=== PATIENT | male | born 1965 | race Caucasian/White ===

== ENCOUNTER 2024-04-23 21:28 | Emergency (ER) | payer OTHER, SELFPAY ==
[2024-04-23 22:07] VITALS: BP 147/87; PULSE 77; RESP 18; TEMP 36.3; O2SAT 100; BMI 27.4
--- NOTE | 2024-04-23 22:23 | ED.GENADULT ---
HPI - General Adult General Chief complaint: Animal Bite Stated complaint: tick bite Time Seen by Provider: 04/23/24 22:16 Source: patient Mode of arrival: ambulatory Limitations: no limitations History of Present Illness ED Provider: Augustine Mckeon PA-C HPI narrative: [age] year male with past medical history of high cholesterol presents to ED for possible left flank tick bite. Patient states he felt something crawling on his hold up his shirt he had a tick attached to his left flank with surrounding redness. Patient does not know how long it has been present was recently help his daughter move and [facility] where there are known for tics. Patient states no fever or rash. removed tick Related Data Previous Rx's ?Medication ?Instructions ?Recorded doxycycline hyclate 100 mg capsule 100 mg PO BID 10 days #20 caps 04/23/24 Allergies Allergy/AdvReac Type Severity Reaction Status Date / Time No Known Allergies Allergy Verified 04/23/24 22:08 Review of Systems Review of Systems: tick bite Yes all other systems are reviewed and are negative [facility] Social History Social History Advance Directives: No Advance Directives Information Provided: No Physical Exam ED Vital Signs: Vital Signs - 24 hr 04/23/24 22:07 Temperature 97.3 F Pulse Rate 77 Respiratory Rate 18 Blood Pressure 147/87 H Pulse Oximetry 100 Oxygen Delivery Method Room Air BMI result Body Mass Index 27.4 Const General: cooperative, healthy appearing, comfortable, no acute distress, well developed, alert, awake and Physically active Orientation/consciousness: oriented to person, oriented to place, oriented to time and patient oriented x3 HENMT Head: Yes normal to inspection, Yes No palpable skull fracture present, Yes normocephalic and Yes atraumatic Eyes General: appearance normal, both eyes and all related structures Neck Neck: Yes normal visual inspection, Yes full ROM, Yes no lymphadenopathy, Yes no meningeal signs, Yes trachea midline, Yes supple, No anterior neck swelling and No tender Chest Chest palpation & inspection: normal inspection of the chest and normal palpation of entire chest wall Resp Effort & Inspection: normal respiratory effort and able to speak in complete sentences Auscultation: clear to auscultation bilaterally Cardio Jugular venous distension: no JVD Heart sounds: S1 normal heart sound present and S2 normal heart sound present GI Inspection: Yes normal to inspection Palpation (GI): Soft to palpation, not firm, nontender, no guarding and not rigid General: No CVA tenderness and Yes no CVA tenderness Back/Spine/Pelvis Back: no CVA tenderness, No CVA tenderness and No back tenderness Skin General skin exam: no rashes or lesions noted, elasticity normal and turgor normal Full body images: 1. Circular area redness with bite chyna opening. Looks like tick bite Neuro General: oriented to person, oriented to place, oriented to time, patient oriented x3, gait normal, tone normal, moves all extremities, Normal light touch and pain sensation, no meningeal signs, no focal motor deficits, CN's II-XI intact bilaterally and normal sensation to monofilament Extrem General: Yes normal to inspection, Yes full ROM and Yes capillary refill normal Psych Appearance: grossly normal, well kempt and not disheveled Medical Decision Making Medical Decision Making MDM Narrative: 58-year-old male presents to ED for left leg redness due to tick bite. pulled a tick out of his flank. Patient denies any fever or chills. Patient states no body aches or chills. Patient denies any joint pain. Patient will be discharged with doxycycline Differential Diagnosis Differential Diagnoses: The differential diagnosis associated with the presentation includes (Tick bite) Admission/Observation Consideration of admission/observation: Escalation of care including admission/observation considered Independent Historian Clinical information obtained from an independent historian. History obtained from or confirmed by: Other (Patient) External Record Review External record reviewed: Other (Prior visits) Prescription Management I considered prescription management with: Antibiotic Discharge Plan Discharge Clinical Impression: Tick bite Patient Disposition: Home, Self-Care Instructions: Tick Bite (ED) Additional Instructions: You will be discharged with doxycycline. Recommend follow-up with primary care provider. Return to the ED for worsening redness, rash, fever, chills, headache, dizziness, or any other concerning symptoms. Prescriptions: New doxycycline hyclate 100 mg capsule 100 mg PO BID 10 Days Qty: 20 0RF Stand Alone Forms: Work/School Release Interventions: ED Discharge Assessment Last Done: 04/23/24 22:54 Discharge Date/Time: 04/23/24 22:54 Print Language: Turkmen
[2024-04-23 22:54] VITALS: BP 147/87; PULSE 77; RESP 18; TEMP 36.3; O2SAT 100
== END 2024-04-23 22:54 | disposition home or self-care (01) ==
PROVIDERS: Emergency Provider Internal Medicine; PCP Internal Medicine
DX: S30.861A Insect bite (nonvenomous) of abdominal wall, initial encounter (principal); W57.XXXA Bitten or stung by nonvenomous insect and other nonvenomous arthropods, initial encounter; Y93.9 Activity, unspecified; Y92.9 Unspecified place or not applicable; Y99.9 Unspecified external cause status
CPT/HCPCS: 99282; 99283

== ENCOUNTER 2025-01-07 01:24 | Emergency (ER) | payer BC, SELFPAY ==
--- NOTE | ~2025-01-07 | XR_ITS ---
CLINICAL HISTORY: R. neck shoulder pain. 5 views cervical spine Comparison: None Findings: Normal alignment. No acute fractures or dislocation. Multilevel spondylosis with osteophytosis, uncovertebral hypertrophy, facet arthropathy and degenerative disc disease. No prevertebral soft tissue swelling. IMPRESSION: Chronic changes without acute findings. This document has been electronically signed by: Rory Saha MD on 01/07/2025 02:48:55
--- NOTE | ~2025-01-07 | XR_ITS ---
CLINICAL HISTORY: R. neck shoulder pain. 3 view right shoulder Comparison: None Findings: Bones intact. No dislocations. Mild degenerative changes of the AC joint. No erosions. No radiopaque foreign body. IMPRESSION: 1. No acute findings This document has been electronically signed by: Rory Saha MD on 01/07/2025 02:47:34
[2025-01-07 01:28] VITALS: BP 146/80; PULSE 82; RESP 16; TEMP 36.3; O2SAT 99; BMI 27.2
[2025-01-07 06:01] VITALS: BP 116/55; PULSE 82; RESP 16; TEMP 36.4; O2SAT 98
[2025-01-07] MEDS: Acetaminophen 325 MG TABLET 975 MG PO (06:04)
--- OUTSIDE RECORDS SUMMARY | 2025-01-07 06:20 | XMS_ITS | Continuity of Care Document ---
Author Name [facility] Organization [facility] Care Team Providers Care Assistant Professor Of Psychology Name Role Phone [facility] Unavailable Unavailable Problems Combined list of problems from Department of Defense and Veterans Affairs facilities. It does not include entries that were removed or entered in error. Problem Status Onset Date Problem Type Date of Resolution Comments Source Hypercholesterolemia Active 11/12/19 23 Condition [facility] Alcohol dependence Active Condition A 2022 Entered By: TAYLER ESTEVEZ Comment: Alcohol Use Disorder, Severe [facility] [place] [facility] Anxiety disorder Active Condition Mar 06, 2022 Entered By: MELANIE BANKS Comment: updated. [facility] Moderate alcohol dependence Active Condition Jan 19, 2023 Entered By: MELANIE BANKS Comment: updated. [facility] Diagnosis: ICD-10-CM F41.9 Anxiety disorder, unspecified Active Diagnosis [place] Diagnosis: ICD-10-CM F10.20 Alcohol dependence, uncomplicated Active Diagnosis [facility] Diagnosis: ICD-10-CM F10.29 Alcohol dependence with unspecified alcohol-induced disorder Active Diagnosis [facility] Medications Combined list of outpatient medications from Department of Defense and Veterans Affairs facilities.Medications provided include 1) outpatient medications from the last 15 months, and 2) patient-reported medications. Medication Details Route Status Patient Instructions Prescription Expires Prescription Number Last Dispense Date Ordering Provider Order Date Order Qty Source GABAPENTIN 300MG CAP TAKE ONE CAPSULE BY MOUTH THREE TIMES DAILY NEEDED ORAL 01/20/2024 [id number] XIOMARA BANKS 2022 90 FARAZ IEEVENS LORAZEPAM 0.5MG TAB TAKE ONE TABLET BY MOUTH TWICE DAILY NEEDED FOR ANXIETY ORAL 12/28/2024 [id number] 5 Lyndon KO 2024 6 IELD LORAZEPAM 0.5MG TAB TAKE ONE TABLET BY MOUTH ONCE DAILY FOR ANXIETY ORAL 02/19/2024 [id number] 4 XIOMARA BANKS 2023 7 IELD SERTRALINE HCL 100MG TAB TAKE ONE-HALF TABLET BY MOUTH ONCE DAILY ANXIETY ORAL 05/28/2024 [id number] 4 XIOMARA BANKS A 2022 30 IELD Immunizations Combined list of available immunizations from the Department of Defense and Veterans Affairs facilities. 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 Administe red by: TOM MENDOZA (VHF=[phone]). Partner 1 [facility] [place] [facility] [facility] Encounters Combined list of: 1) Encounters from Department of Veterans Affairs facilities going backup to the last 18 months, not all [place] inpatient encounters are included; 2) Encounters from the Department of Defense facilities going backup to 280 months. Location Location Details Encounter Type Encounter Number Reason For Visit Attending Provider ADM Date DC Date Status Disposition Source [place] [facility] [place] [facility] [employer] [place] [id number] Diagnos is: ICD-10- CM F41.9 Anxiety disorde r, unspeci fied MELANIE BANKS 07/10 [place] [facility] [place] [facility] [place] [facility] HC PRO PHONE CALL 11-20 MIN [id number] Diagnos is: ICD-10- CM F10.29 Alcohol depende nce with unspeci fied alcohol -induce d disorde r DEBORAH,BENJA IG 08[facility]28 [facility] En[facility] [id number] 09/03 [facility] PSYTX W PT 30 MINUTES [id number] Diagnos is: ICD-10- CM F10.20 Alcohol depende nce, uncompl icated DEBORAH,TREE KILLER IG 09/10 [facility] [place] [place] [facility] Outpatient Encounter [id number] 09/18 [place] [facility] En[facility] [id number] 09/26 [facility] En[facility] [id number] 10/16 [facility] [place] OFFICE O/P EST MOD 30-39 MIN [id number] Diagnos is: ICD-10- CM F41.9 Anxiety disorde r, unspeci fied ROOT,MELANIE A 10/29 [place] [facility] En[facility] [id number] 01/07 [facility] En[facility] [id number] 01/19 [facility] En[facility] [id number] 01/28 [facility] Encounter [id number] 01/30 [facility] [place] [place] [facility] [place] Outpatient Encounter [id number] 03/11 [place] [facility] En[facility] [id number] 05/28 [facility] En[facility] [id number] 05/28 [facility] En[facility] [id number] 05/30 [facility] En[facility] [id number] 10/14 [facility] En[facility] [id number] 11/17 [facility] En[facility] [id number] 11/28 [facility] [place] [facility] Social History Combined list of available smoking, tobacco, and other social history from Department of Defense and Veterans Affairs facilities. Social History Type Response Date Comment Sourc e Tobacco [facility]2023 [facility] History of tobacco use VA-TOBACCO NEVER USED 03/06/2022 [facility] D History of tobacco use VA-TOBACCO NEVER USED 01/20/2021 [facility] [place] History of tobacco use VA-TOBACCO NEVER USED 09/18/2018 [facility] D History of tobacco use LIFETIME NON-TOBACCO USER 10/11/2017 [place] History of tobacco use LIFETIME NON-TOBACCO USER 10/19/2016 [place] History of tobacco use LIFETIME NON-TOBACCO USER 03/03/2015 [facility] [place] [facility] This section is an empty social history section. [facility] Plan of Care List of future care activities from Department of Veterans Affairs facilities. Additional future care activities may be listed in the Assessment and Plan section. Date/Time Care Activity Care Activity Detail Facili ty 02/23/2025 AMBULATORY - MEDICINE AMBULATORY - MEDICI [facility]
--- OUTSIDE RECORDS SUMMARY | 2025-01-07 06:20 | XMS_ITS | Encounter Summary ---
Author Name [facility] Address [address] [place] [address] Support Name Relationship Address Phone ESTRELLITA NGUYEN Next of Kin [address] [facility] [place] [phone] ESTRELLITA NGUYEN Emergency Contact [address] [place] [address] Insurance Providers: All historical and current Section Date Range: From patient's date of to the date document was created. This section includes the names of all active insurance providers for the patient. Insurance Provider Type of Coverage Plan Name Start of Policy Coverage End of Policy Coverage Group Number Member ID Insurance Provider's Telephone Number Policy Beavers's Name Patient's Relationship to Policy Beavers [place] PREFERRED PROVIDER ORGANIZAT ION (PPO) BASIC FAMIL Y Nov 14, 2009 [id number] [phone] Lyndon NGUYEN AVID PATIENT [place] PREFERRED PROVIDER ORGANIZAT ION (PPO) BASIC SELF & FAMIL Y Nov 14, 2009 [id number] [phone] Lyndon NGUYEN AVID PATIENT [place] FEP PRESCRIPT ION Nov 12, 2010 [id number] [phone] Lyndon NGUYEN AVID PATIENT [place]-F EP BCBS PRESCRIPT ION FEP [place] Nov 12, 2010 [id number] Lyndon NGUYEN PATIENT Selected Encounter This section includes the information on record at [place] for the Encounter. Date/Time Encounter Type Encounter Description Reason Pro vider Source Mar 11, 2024 11:30 AM Outpatient Encounter [facility] Encounter Template Text not used by [place] Social History: Smoking Status (Most current) and Tobacco Use (All prior to encounter date) This section includes the most current, and the historical, smoking and tobacco- related health factors from the [place] facility where the Encounter took place. Current Smoking Status This section includes the most current smoking, or tobacco-related health factor, from the [place] facility where the Encounter took place. Date/Time Current Smoking Status Comment Lan noey May 28, 2023 01:00 PM VA-TOBACCO NEVER USED [place] Tobacco Use History This section includes a history of the smoking, or tobacco-related health factors, that were collected on or before the date of the Encounter. The data comes from the [place] facility where the Encounter took place. Date/Time Smoking Status/Tobacco Use Comment F acility Mar 06, 2022 02:30 PM VA-TOBACCO NEVER USED [place] Jan 20, 2021 11:30 AM VA-TOBACCO NEVER USED [place] Sep 18, 2018 09:12 AM VA-TOBACCO NEVER USED [place] Oct 11, 2017 11:32 AM LIFETIME NON-TOBACCO USER [place] Oct 19, 2016 02:43 PM LIFETIME NON-TOBACCO USER [place] Encounter Notes: All associated encounter notes This section contains the clinical notes associated to the Encounter. Date/Time Encounter Note(s) Provider Source Mar 11, 2024 11:45 AM CLERICAL NOTE: LOCAL TITLE: APPOINTMENT NO SHOW STANDARD TITLE: CLERICAL NOTE DATE OF NOTE: MAR 11, 2024@11:45 ENTRY DATE: MAR 11, 2024@11:45:30 AUTHOR: MELANIE BANKS COSIGNER: URGENCY: STATUS: COMPLETED Patient Name: GREGORIO NGUYEN Patient SSN: [id number] Date and time of Appointment No show : 03/11/24 11:30 PATIENT PHONE - PHONE NUMBER [CELLULAR] - Patient's medical record was reviewed. Follow-up actions were determined and initiated: Please check/complete as applies: [X]Telephoned Directly [X]Re-scheduled for next available appt [X]Sent a N0-show letter ( must call for appointment) [ ]Other (Emergent/Overbook, etc.): Additional Comments: rtc 5 months Future Clinic Visits No data available /kasey/ Melanie Banks REAL ESTATE DEVELOPMENT MANAGER, STAFF CLINICAL NURSE SPECIALIST Signed: 03/11/2024 11:49 Receipt Acknowledged By: 03/11/2024 13:16 /kasey/ Hayley Bryce ADVANCED FLOORLEADER MLEANIE BANKS
--- OUTSIDE RECORDS SUMMARY | 2025-01-07 06:21 | XMS_ITS | Encounter Summary ---
Author Organization [facility] Address [address] [place] [address] Care Team Providers Care Slot Floor Attendant Name Role Phone Tyrell Amezquita Primary Care Provider [phone] Reason for Referral * Imaging (Routine) - Pending Review Specialty Diagnoses / Procedures Referred By Frank t Referred To Contact Radiology Diagnoses Dysuria Left testicular pain Prostatitis, unspecified prostatitis type Procedures US Retroperitoneal Complete Tyrell Amezquita PA [address] [place] [address] Phone: tel: fax: [address] Phone: tel: Referral ID Status Reason Start Date Expiration Date V isits Requested Visits Authorized [id number] Pending Review 12/08/2024 12/08/2025 1 1 Reason for Visit * Imaging (Routine) - Pending Review Specialty Diagnoses / Procedures Referred By Contac t Referred To Contact Radiology Diagnoses Dysuria Left testicular pain Prostatitis, unspecified prostatitis type Procedures US Retroperitoneal Complete Tyrell Amezquita PA [address] [place] [address] Phone: tel: fax: [address] Phone: tel: Referral ID Status Reason Start Date Expiration Date V isits Requested Visits Authorized [id number] Pending Review 12/08/2024 12/08/2025 1 1 Encounter Details Date Type Department Care Team (Latest Contact Info) Description 12/22/2024 9:57 AM EST - 12/22/2024 11:59 PM EST Hospital Encounter Radiology Department - [address] [phone] Dysuria; Left testicular pain; Prostatitis, unspecified prostatitis type Discharge Disposition: Home or Self Care Social History Tobacco Use Types Packs/Day Years Used Date Smoking Tobacco: Never Smokeless Tobacco: Never Alcohol Use Standard Drinks/Week Comments Yes 0 (1 standard drink = 0.6 oz pur e alcohol) Sex and Gender Information Value Date Recorded Sex Assigned at Not on file Legal Sex Male 8:13 PM EST Gender Identity Not on file Sexual Orientation Not on file documented as of this encounter Medications at Time of Discharge cyclobenzaprine (FLEXERIL) 5 mg tablet Take 1 tablet (5 mg total) by mouth at bedtime. 12/07/2024 doxycycline (VIBRAMYCIN) 100 mg capsule 04/23/2024 famotidine (PEPCID) 40 mg tablet Take 0.5 tablets (20 mg total) by mouth 1 (one) time each day. guaiFENesin (ROBITUSSIN) 100 mg/5 mL liquid Take 10 mL (200 mg total) by mouth 3 (three) times a day if needed for cough. 02/12/2024 ibuprofen (ADVIL,MOTRIN) 800 mg tablet Take 1 tablet (800 mg total) by mouth every 8 (eight) hours if needed for mild pain (for up to 30 days). 05/28/2024 LORazepam (ATIVAN) 0.5 mg tablet Take 1 tablet (0.5 mg total) by mouth every 8 (eight) hours if needed for anxiety (Take 1 tablet as needed for anxiety/panic symptoms). Max Daily Amount: 1.5 mg 30 tablet 12/08/2024 simvastatin (ZOCOR) 10 mg tablet Take 1 tablet (10 mg total) by mouth at bedtime. For 180 days 90 tablet 3 12/08/2024 documented as of this encounter Discharge Disposition Disposition Code Departure Means Destination Home or Self Care documented in this encounter Plan of Treatment Upcoming Encounters Date Type Department Care Team (Late st Contact Info) Description 03/09/2025 3:00 PM EDT Office Visit Adult Medicine [facility] [address] [place] [address] Tyrell Amezquita PA [address] [place] [address] documented as of this encounter Procedures Procedure Name Priority Date/Time Associated Diagnosis Comments US RETROPERITONEAL COMPLETE Routine 12/22/2024 10:43 AM EST Dysuria Left testicular pain Prostatitis, unspecified prostatitis type documented in this encounter Results * US Retroperitoneal Complete (12/22/2024 10:43 AM EST) Anatomical Region Laterality Modality Body Ultrasound 12/22/2024 10:5 2 AM EST Narrative 12/22/2024 10:54 AM EST Retroperitoneal ultrasound. History dysmenorrhea. Comparison with prior ultrasound, latest from 09/29/2023. Right kidney is normal in size and echogenicity measuring 11 cm in long axis. Left kidney measures 13 cm in long axis. There is a 0.5 x 0.7 x 0.8 cm cyst with calcifications in the upper pole as well as some clear cyst measuring 1 x 1 x 1 cm in the midpole. There is no evidence of visible solid masses. There is no hydronephrosis or perinephric fluid collections. Urinary bladder was visualized with prevoid volume of 195 cc. Postvoid volume is 29 cc. Bilateral ureteral jets were identified. Prostate volume is 18 cc. Incidental findings of cyst in the right lobe of the liver measuring 1.7 x 1.9 x 1.7 cm. CONCLUSIONS: Unremarkable appearance of the bladder. 2 cysts in the right kidney as detailed in the report. Incidental findings of small cyst in the right lobe of the liver. -------- FINAL REPORT -------- Dictated By: Shanita Diaz Dictated Date: 12/22/2024 10:52 ET Assigned Physician: Shanita Diaz Reviewed and Electronically Signed By: Shanita Diaz Signed Date: 12/22/2024 10:54 ET Workstation ID: [id number] Transcribed By: Self Edit Transcribed Date: 12/22/2024 10:52 ET Procedure Note Shanita Diaz MD - 12/22/2024 Retroperitoneal ultrasound. History dysmenorrhea. Comparison with prior ultrasound, latest from 09/29/2023. Right kidney is normal in size and echogenicity measuring 11 cm in longaxis. Left kidney measures 13 cm in long axis. There is a 0.5 x 0.7 x 0.8cm cyst with calcifications in the upper pole as well as some clear cystmeasuring 1 x 1 x 1 cm in the midpole. There is no evidence of visiblesolid masses. There is no hydronephrosis or perinephric fluidcollections. Urinary bladder was visualized with prevoid volume of 195 cc. Postvoidvolume is 29 cc. Bilateral ureteral jets were identified. Prostate volume is 18 cc. Incidental findings of cyst in the right lobe ofthe liver measuring 1.7 x 1.9 x 1.7 cm. CONCLUSIONS: Unremarkable appearance of the bladder. 2 cysts in the rightkidney as detailed in the report. Incidental findings of small cyst in theright lobe of the liver. -------- FINAL REPORT -------- Dictated By: Shanita Diaz Dictated Date: 12/22/2024 10:52 ET Assigned Physician: Shanita Diaz Reviewed and Electronically Signed By: Shanita Diaz Signed Date: 12/22/2024 10:54 ET Workstation ID: [id number] Transcribed By: Self Edit Transcribed Date: 12/22/2024 10:52 ET Tyrell WADDELL IM US PROCEDURES Final R esult documented in this encounter Visit Diagnoses Diagnosis Dysuria Left testicular pain Prostatitis, unspecified prostatitis type documented in this encounter Care Teams Slot Floor Attendant Relationship Specialty Start Date End Date Tyrell Amezquita PA [address] [place] [address] PCP - General Internal Medicine 04/27/21 documented as of this encounter
--- OUTSIDE RECORDS SUMMARY | 2025-01-07 06:21 | XMS_ITS | Encounter Summary ---
Author Organization [facility] Address [address] [place] [address] Care Team Providers Care Manager Inventory Control Name Role Phone Tyrell Amezquita Primary Care Provider [phone] Reason for Visit * Reason Onset Date Comments information for Tyrell Amezquita 12/08/2024 Encounter Details Date Type Department Care Team (Late st Contact Info) Description 12/08/2024 Telephone Adult Medicine [facility] [address] [place] [address] Tyrell Amezquita PA [address] [place] [address] information for Tyrell Amezquita Social History Tobacco Use Types Packs/Day Years [...] on file documented as of this encounter Progress Notes * NADIRA Lisa - 12/09/2024 11:57 AM EST Ok will keep an eye out * Katrina Robertson - 12/08/2024 10:45 AM EST Patient states he saw Nikko today and he would like him to know the following. States that he had seen [facility] Dr Tung [place]ins. States he spoke with that office and they are sending his office to notes to Nikko today. Patient would like Nikko to be on the look out. documented in this encounter Plan of Treatment Upcoming Encounters Date Type Department Care Team (Late st Contact Info) Description 03/09/2025 3:00 PM EDT Office Visit Adult Medicine [facility] [address] [place] [phone] Tyrell Amezquita PA [address] [place] [phone] documented as of this encounter Visit Diagnoses Not on filedocumented in this encounter Care Teams Manager Inventory Control Relationship Specialty Start Date End Date Tyrell Amezquita PA [address] [place] [phone] PCP - General Internal Medicine 04/27/21 documented as of this encounter
--- OUTSIDE RECORDS SUMMARY | 2025-01-07 06:21 | XMS_ITS | Clinical Summary ---
Author Organization [address] Address [address] [place] [phone] Phone Care Team Providers Care Podopediatrician Name Role Phone Tyrell Amezquita Primary Care Provider [phone] Allergies Active Allergy Reactions Criticality Noted Date Comments Rosuvastatin Pain High 09/24/2023 Other Reaction(s): ACHES Sulfamethoxazole-Trimethop rim Numbness,Rash High 07/16/2020 Medications ibuprofen (ADVIL,MOTRIN) 800 mg tablet Take 1 tablet (800 mg total) by mouth every 8 (eight) hours if needed for mild pain (for up to 30 days). 05/28/2024 Active doxycycline (VIBRAMYCIN) 100 mg capsule 04/23/2024 Acti ve guaiFENesin (ROBITUSSIN) 100 mg/5 mL liquid Take 10 mL (200 mg total) by mouth 3 (three) times a day if needed for cough. 02/12/2024 Active cyclobenzaprine (FLEXERIL) 5 mg tablet Take 1 tablet (5 mg total) by mouth at bedtime. 12/07/2024 Active famotidine (PEPCID) 40 mg tablet Take 0.5 tablets (20 mg total) by mouth 1 (one) time each day. Active simvastatin (ZOCOR) 10 mg tablet Take 1 tablet (10 mg total) by mouth at bedtime. For 180 days 90 tablet 3 12/08/2024 Active LORazepam (ATIVAN) 0.5 mg tablet Take 1 tablet (0.5 mg total) by mouth every 8 (eight) hours if needed for anxiety (Take 1 tablet as needed for anxiety/gadiel c symptoms). Max Daily Amount: 1.5 mg 30 tablet 12/08/2024 Active levoFLOXacin (LEVAQUIN) 750 mg tablet Take 1 tablet (750 mg total) by mouth 1 (one) time each day for 14 days. 14 tablet 12/08/2024 12/22/19 25 Active Problems Problem Noted Date Diagnosed Date Arrhythmia 04/20/2023 Tubular adenoma of colon 12/11/2022 Other viral warts 12/11/2022 Mixed hyperlipidemia 04/18/2019 Atrial fibrillation 06/14/2016 Kidney cysts 11/28/2011 Overview (11/03/2024): Saw Dr Gonsalves 01/18, f/u CT 03/20 also showed cysts; repeat done 12/24 and was stable Neoplasm of uncertain behavior of skin 8 Overview (11/03/2024): Dysplastic nevus 10/19 back (mild atypia) Claustrophobia 10/26/2008 Overview (11/03/2024): Please schedule any MRI at [facility]. Pure hypercholesterolemia 07/04/2006 Infectious mononucleosis 07/04/2006 Encounters Date Type Department Care Team Description 12/22/2024 9:57 AM EST - 12/22/2024 11:59 PM EST Hospital Encounter Radiology Department - [address] [phone] Dysuria; Left testicular pain; Prostatitis, unspecified prostatitis type Discharge Disposition: Home or Self Care 12/22/2024 9:57 AM EST - 12/22/2024 11:59 PM EST Hospital Encounter Radiology [facility] - [address] [phone] Dysuria; Left testicular pain; Prostatitis, unspecified prostatitis type Discharge Disposition: Home or Self Care 12/08/2024 9:30 AM EST Office Visit Adult Medicine [address] [phone] Tyrell Amezquita PA Prostatitis, unspecified prostatitis type (Primary Dx); Dysuria; Left testicular pain 12/08/2024 Telephone Adult Medicine [address] [phone] Tyrell Amezquita PA information for Tyrell Amezquita 12/04/2024 Telephone Adult Medicine [address] [phone] Tyrell Amezquita PA UTI SYSTEMS 11/18/2024 Nurse Triage Adult [address] [phone] Tyrell Amezquita PA UTI (For the past 2 weeks) from Last 3 Months Immunizations Name Administration Dates Next Due Influenza Quadravalent, MDCK , 0.5ml, preservative free (Flucelvax) 6mo and older 09/05/2023,12/11/2022 Influenza trivalent, 0.5mL, preservative free (Fluarix; FluLaval; Fluzone) ages 6mo and older (Afluria) 3 years and older 11/17/2024,08/26/2014,09/24/2012,2010 Disrupt CK SARS-CoV-2 COVID-19, mRNA, LNP-S, preservative free 01/28/2021,01/07/2021 Td Tetanus diptheria (Tdvax) 7yo and older 10/12/2004 Tdap Tetanus diptheria acell ular pertussis (Boostrix; Adacel) 7yo and older 12/11/2014 Surgical History Surgery Date Site/Laterality Comments HERNIA REPAIR 11/12/1985 Right PROCEDURE: HISTORICAL HERNIA REPAIR/ING COLONOSCOPY 08/25/2016 PROCEDURE: HISTORICAL COLONOSCOPY; COMMENT: 2 polyps, tics, hemorrhoids. OTHER SURGICAL HISTORY 06/30/2020 PROCEDURE: UPPER GI ENDOSCOPY, REMOVE LESION; COMMENT: muslu -normal. COLONOSCOPY 02/01/2024 PROCEDURE: HISTORICAL COLONOSCOPY; COMMENT: dr. elise -diverticulosis repeat 5 years Medical History Medical History Date Comments Pure hypercholesterolemia 07/04/2006 DX:Pur e hypercholesterolemia Infectious mononucleosis 07/04/2006 DX:Infe ctious mononucleosis Inguinal hernia without ment ion of obstruction or gangrene, unilateral or unspecified, (not specified as recurrent) 07/04/2006 DX:Inguinal hernia without m ention of obstruction or gangrene, unilateral or unspecified, (not specified as recurrent) Arrhythmia 04/20/2023 Family History Medical History Relation Name Comments Coronary artery disease Father sasha y 60's onset Diabetes Father Other cancer Other possible in gra ndmother, uncertain type Blindness Neg Hx Cataracts Neg Hx Glaucoma Neg Hx Hypertension Neg Hx Macular degeneration Neg Hx Strabismus Neg Hx Relation Name Status Comments Father (Age 71) AAA pvd ca bg at 62 dm Mother Other Sister Alive Social History Tobacco Use Types Packs/Day Years Used Date Smoking Tobacco: Never Smokeless Tobacco: Never Tobacco Cessation:Counseling Given: Not Answered Alcohol Use Standard Drinks/Week Comments Yes 0 (1 standard drink = 0.6 oz pur e alcohol) Sex and Gender Information Value Date Recorded Sex Assigned at Not on file Legal Sex Male 8:13 PM EST Gender Identity Not on file Sexual Orientation Not on file Obstetrics History Last Filed Vital Signs Vital Sign Reading Time Taken Comments Blood Pressure 122/67 12/08/2024 9:12 AM EST Pulse 93 12/08/2024 9:12 AM EST Temperature 36.5 ??C (97.7 ??F) 12/08/2024 9:12 AM ES T Respiratory Rate 12 12/08/2024 9:12 AM EST Oxygen Saturation - - Inhaled Oxygen Concentration - - Weight 82 kg (180 lb 12.8 oz) 12/08/2024 9:12 AM EST Height 172.7 cm (5' 8 ) 12/08/2024 9:12 AM EST Body Mass Index 27.49 12/08/2024 9:12 AM EST Plan of Treatment Upcoming Encounters Date Type Department Care Team (Late st Contact Info) Description 03/09/2025 3:00 PM EDT Office Visit Adult Medicine [facility] [address] [place], [place] [phone] Tyrell Amezquita PA [address] [place] [address] Health Maintenance Due Date Last Done Comments Hepatitis B Vaccines (1 of 3 - 19+ 3-dose series) 1985 Pneumococcal Vaccine: 50+ Years (1 of 2 - PCV) 1985 Pneumococcal Vaccine: Pediatrics (0 to 5 Years) and At-Risk Patients (6 to 64 Years) (1 of 2 - PCV) 1985 Zoster Vaccines (1 of 2) 1985 Depression Screening 10/21/2022 HIV Screening 10/21/2022 Social Influencers of Health Screening 10/21/2022 COVID-19 Vaccine ( season) 2024 10/02/2023, 11/08/2021, 01/28/2021, Additional history exists DTaP,Tdap,and Td Vaccines (3 - Td or Tdap) 12/11/2024 12/11/2014, 10/12/2004 Cholesterol Screening (Lipid Panel) 09/26/2028 09/26/2023 Colorectal Cancer Screening: Colonoscopy 01/31/2029 02/01/2024 Hepatitis C Screening Completed 12/12/2022 Influenza Vaccine Completed 11/17/2024, , 12/11/2022, Additional history exists HIB Vaccines Aged Out No longer eligi ble based on patient's age to complete this topic HPV Vaccines Aged Out No longer eligi ble based on patient's age to complete this topic Hepatitis A Vaccines Aged Out No long er eligible based on patient's age to complete this topic IPV Vaccines Aged Out No longer eligi ble based on patient's age to complete this topic MMR Vaccines Aged Out No longer eligi ble based on patient's age to complete this topic Meningococcal ACWY Vaccine Aged Out N o longer eligible based on patient's age to complete this topic Meningococcal B Vacine Aged Out No lo nger eligible based on patient's age to complete this topic RSV Immunization Patients Under 20 months Aged Out No longer eligible based on patient's age to complete this topic Varicella Vaccines Aged Out No longer eligible based on patient's age to complete this topic Procedures Procedure Name Priority Date/Time Associated Diagnosis Comments US SCROTUM AND CONTENTS Routine 12/22/19 10:43 AM EST Dysuria Left testicular pain Prostatitis, unspecified prostatitis type US RETROPERITONEAL COMPLETE Routine 12/22/2024 10:43 AM EST Dysuria Left testicular pain Prostatitis, unspecified prostatitis type CBC WITH AUTO DIFFERENTIAL Routine 12/08/2024 4:22 PM EST Dysuria Left testicular pain Prostatitis, unspecified prostatitis type URINALYSIS WITH REFLEX MICROSCOPIC Routine 12/08/2024 4:22 PM EST Dysuria Left testicular pain Prostatitis, unspecified prostatitis type COMPREHENSIVE METABOLIC PANEL Routine 12/08/2024 4:22 PM EST Dysuria Left testicular pain Prostatitis, unspecified prostatitis type CBC AND DIFFERENTIAL Routine 12/08/2024 4:22 PM EST Dysuria Left testicular pain Prostatitis, unspecified prostatitis type PROSTATE SPECIFIC ANTIGEN SCREEN Routine 12/08/2024 4:22 PM EST Dysuria Left testicular pain Prostatitis, unspecified prostatitis type URINALYSIS WITH REFLEX MICROSCOPIC Routine 12/08/2024 4:22 PM EST Dysuria Left testicular pain Prostatitis, unspecified prostatitis type LIPID PANEL Routine 09/26/2023 HEPATITIS C SCREENING Routine 12/12/2022 from Last 3 Months or Most Recently Relevant to Health Maintenance Results * US Scrotum and Contents (12/22/2024 10:43 AM EST) Anatomical Region Laterality Modality Body Ultrasound 12/22/2024 10:4 9 AM EST Narrative 12/22/2024 10:51 AM EST Scrotal ultrasound. History left-sided pain. Both testicles were visualized without evidence of focal abnormalities and with normal flow on color Doppler examination. There is no significant hydrocele. Note was made of from multiple tiny cysts in the epididymal heads bilaterally, more numerous on the left. They measure up to 3 mm in diameter. CONCLUSIONS: No focal abnormalities in the testicles. Bilateral tiny epididymal head cysts. -------- FINAL REPORT -------- Dictated By: Shanita Diaz Dictated Date: 12/22/2024 10:49 ET Assigned Physician: Shanita Diaz Reviewed and Electronically Signed By: Shanita Diaz Signed Date: 12/22/2024 10:51 ET Workstation ID: [id number] Transcribed By: Self Edit Transcribed Date: 12/22/2024 10:49 ET Procedure Note Shanita Diaz MD - 12/22/2024 Scrotal ultrasound. History left-sided pain. Both testicles were visualized without evidence of focal abnormalities andwith normal flow on color Doppler examination. There is no significanthydrocele. Note was made of from multiple tiny cysts in the epididymalheads bilaterally, more numerous on the left. They measure up to 3 mm indiameter. CONCLUSIONS: No focal abnormalities in the testicles. Bilateral tinyepididymal head cysts. -------- FINAL REPORT -------- Dictated By: Shanita Diaz Dictated Date: 12/22/2024 10:49 ET Assigned Physician: Shanita Diaz Reviewed and Electronically Signed By: Shanita Diaz Signed Date: 12/22/2024 10:51 ET Workstation ID: [id number] Transcribed By: Self Edit Transcribed Date: 12/22/2024 10:49 ET us Tyrell WADDELL IMG US PROCEDURES Final R esult * US Retroperitoneal Complete (12/22/2024 10:43 AM [...] Signed Date: 12/22/2024 10:54 ET Workstation ID: [id number] Transcribed By: Self Edit Transcribed Date: 12/22/2024 [...] Signed Date: 12/22/2024 10:54 ET Workstation ID: [id number] Transcribed By: Self Edit Transcribed Date: 12/22/2024 10:52 ET Tyrell WADDELL IMG US PROCEDURES Final R esult * Prostate specific antigen screen (12/08/2024 4:22 PM EST) PSA 0.75 0.00 - 4.00 ng/mL LAB CHEMISTRY METHOD 12/08/2024 7:47 PM EST [facility] Blood Venous blood specimen / Unknown Venipuncture / Unknown 12/08/2024 4:22 PM EST 12/08/2024 4:22 PM EST Narrative [facility] - 12/08/2024 7:47 PM EST The Siemens Advia Kuponjoaur Chemiluminescent Immunoassay is used. Results obtained with different assay methods or kits cannot be used interchangeably. Results cannot be interpreted as absolute evidence of the presence or absence of malignant disease. Tyrell WADDELL LAB BLOOD ORDERABLES Esther l Result [facility] [address] [place] [address], * Urinalysis with reflex microscopic (12/08/2024 4:22 PM EST) Specific Whately Urine 1.004 1.003 - 1.030 LAB URINALYSIS - AUTOMATED METHOD 12/08/2024 6:51 PM EST [facility] pH, Urine 6.0 5.0 - 8.0 pH LAB URINALYSIS - AUTOMATED METHOD 12/08/2024 6:51 PM [facility] Leukocytes, Urine Negative Negative LAB URINALYSIS - AUTOMATED METHOD 12/08/2024 6:51 PM EST [facility] Nitrite, Urine Negative Negative LAB URINALYSIS - AUTOMATED METHOD 12/08/2024 6:51 PM [facility] Protein, Urine Negative <=Trace mg/dL LAB URINALYSIS - AUTOMATED METHOD 12/08/2024 6:51 PM [facility] Glucose, Urine Negative Negative mg/dL LAB URINALYSIS - AUTOMATED METHOD 12/08/2024 6:51 PM [facility] Ketones, Urine Negative Negative mg/dL LAB URINALYSIS - AUTOMATED METHOD 12/08/2024 6:51 PM [facility] Urobilinogen, Urine 0.2 0.2 - 1.0 mg/dL LAB URINALYSIS - AUTOMATED METHOD 12/08/2024 6:51 PM [facility] Bilirubin, Urine Negative Negative LAB URINALYSIS - AUTOMATED METHOD 12/08/2024 6:51 PM [facility] Blood, Urine Negative Negative LAB URINALYSIS - AUTOMATED METHOD 12/08/2024 6:51 PM [facility] Urine Urine specimen obtained by clean catch procedure / Unknown Non-blood Collection / Unknown 12/08/2024 4:22 PM EST 12/08/2024 4:22 PM EST us Tyrell WADDELL LAB URINE ORDERABLES Esther lozada Result [facility] [address] [place] [address], * (ABNORMAL) CBC auto differential (12/08/2024 4:22 PM EST) WBC 6.8 4.8 - 10.8 K/mcL LAB HEMETOLOGY METHOD 12/08/2024 6:51 PM [facility] RBC 4.90 4.50 - 5.50 M/mcL LAB HEMETOLOGY METHOD 12/08/2024 6:51 PM [facility] Hemoglobin 14.6 13.5 - 17.5 g/dL LAB HEMETOLOGY METHOD 12/08/2024 6:51 PM [facility] Hematocrit 43.1 42.0 - 54.0 % LAB HEMETOLOGY METHOD 12/08/2024 6:51 PM [facility] MCV 87.8 79.0 - 98.0 FL LAB HEMETOLOGY METHOD 12/08/2024 6:51 PM [facility] MCH 29.7 27.0 - 32.0 pcg LAB HEMETOLOGY METHOD 12/08/2024 6:51 PM [facility] MCHC 33.9 32.0 - 37.0 g/dL LAB HEMETOLOGY METHOD 12/08/2024 6:51 PM [facility] RDW 12.8 11.0 - 15.0 % LAB HEMETOLOGY METHOD 12/08/2024 6:51 PM [facility] Platelets 251 130 - 400 K/mcL LAB HEMETOLOGY METHOD 12/08/2024 6:51 PM [facility] MPV 10.7 7.0 - 11.0 FL LAB HEMETOLOGY METHOD 12/08/2024 6:51 PM [facility] NRBC 0.0 <1.0 % LAB HEMETOLOGY METHOD 12/08/2024 6:51 PM [facility] NRBC Absolute 0.00 <0.10 K/mcL LAB HEMETOLOGY METHOD 12/08/2024 6:51 PM [facility] Neutrophils Relative 50.5 % LAB HEMETOLOGY METHOD 12/08/2024 6:51 PM [facility] Lymphocytes Relative 28.0 % LAB HEMETOLOGY METHOD 12/08/2024 6:51 PM [facility] Monocytes Relative 16.1 % LAB HEMETOLOGY METHOD 12/08/2024 6:51 PM [facility] Eosinophils Relative 4.1 % LAB HEMETOLOGY METHOD 12/08/2024 6:51 PM EST [facility] Basophils Relative 1.0 % LAB HEMETOLOGY METHOD 12/08/2024 6:51 PM EST [facility] Immature Granulocytes Relative 0.3 % LAB HEMETOLOGY METHOD 12/08/2024 6:51 PM [facility] Neutrophils Absolute 3.40 1.50 - 7.00 K/mcL LAB HEMETOLOGY METHOD 12/08/2024 6:51 PM [facility] Lymphocytes Absolute 1.89 1.00 - 5.00 K/mcL LAB HEMETOLOGY METHOD 12/08/2024 6:51 PM [facility] Monocytes Absolute 1.09(H) 0.20 - 1.00 K/mcL LAB HEMETOLOGY METHOD 12/08/2024 6:51 PM [facility] Eosinophils Absolute 0.28 0.00 - 0.50 K/mcL LAB HEMETOLOGY METHOD 12/08/2024 6:51 PM EST [facility] Basophils Absolute 0.07 0.00 - 0.20 K/mcL LAB HEMETOLOGY METHOD 12/08/2024 6:51 PM EST [facility] Immature Granulocytes Absolute 0.02 0.00 - 0.03 K/mcL LAB HEMETOLOGY METHOD 12/08/2024 6:51 PM [facility] Blood Venous blood specimen / Unknown Venipuncture / Unknown 12/08/2024 4:22 PM EST 12/08/2024 4:22 PM EST us Tyrell WADDELL LAB BLOOD ORDERABLES Esther lozada Result [facility] [address] [place] [address], * (ABNORMAL) Comprehensive metabolic panel (12/08/2024 4:22 PM EST) Pathologist [facility] Sodium 136 133 - 145 mmol/L LAB CHEMISTRY METHOD 12/08/2024 7:40 PM [facility] Potassium 3.6 3.5 - 5.5 mmol/L LAB CHEMISTRY METHOD 12/08/2024 7:40 PM [facility] Chloride 102 96 - 110 mmol/L LAB CHEMISTRY METHOD 12/08/2024 7:40 PM [facility] CO2 29 21 - 32 mmol/L LAB CHEMISTRY METHOD 12/08/2024 7:40 PM [facility] Anion Gap 5 3 - 11 LAB CHEMISTRY METHOD 12/08/2024 7:40 PM [facility] Glucose 111(H) 70 - 100 mg/dL LAB CHEMISTRY METHOD 12/08/2024 7:40 PM [facility] BUN 17 5 - 25 mg/dL LAB CHEMISTRY METHOD 12/08/2024 7:40 PM [facility] Creatinine 0.72 0.70 - 1.30 mg/dL LAB CHEMISTRY METHOD 12/08/2024 7:40 PM [facility] eGFR 106 >=60 mL/min/1. 73m2 LAB CHEMISTRY METHOD 12/08/2024 7:40 PM [facility] Comment:Calculation based on the??Chronic Kidney Disease Epidemiology Collaboration (CKD-EPI) equation refit??without adjustment for race. BUN/Creatinine Ratio 23.6 LAB CHEMISTRY METHOD 12/08/2024 7:40 PM [facility] Calcium 8.6 8.5 - 10.5 mg/dL LAB CHEMISTRY METHOD 12/08/2024 7:40 PM [facility] AST (SGOT) 25 10 - 42 unit/L LAB CHEMISTRY METHOD 12/08/2024 7:40 PM [facility] ALT (SGPT) 38 10 - 60 unit/L LAB CHEMISTRY METHOD 12/08/2024 7:40 PM [facility] Alkaline Phosphatase 82 42 - 121 unit/L LAB CHEMISTRY METHOD 12/08/2024 7:40 PM EST [facility] Total Protein 7.2 6.0 - 8.0 g/dL LAB CHEMISTRY METHOD 12/08/2024 7:40 PM EST [facility] Albumin 4.0 3.2 - 5.0 g/dL LAB CHEMISTRY METHOD 12/08/2024 7:40 PM EST [facility] Total Bilirubin 0.7 0.0 - 1.4 mg/dL LAB CHEMISTRY METHOD 12/08/2024 7:40 PM EST [facility] Blood Venous blood specimen / Unknown Venipuncture / Unknown 12/08/2024 4:22 PM EST 12/08/2024 4:22 PM EST Tyrell WADDELL LAB BLOOD ORDERABLES Esther l Result [facility] [address] [place] [address], * (ABNORMAL) Lipid panel (09/26/2023) LDL/HDL Ratio 5(A) 0 - 4 Triglycerides 117 0 - 150 mg/dL Cholesterol 215(A) 0 - 200 mg/dL HDL 46 >=40 mg/dL LDL Cholesterol 146(A) 0 - 100 mg/dL Blood Venous blood specimen / Unknown Historical Provider LAB BLOOD ORDERABLES Esther l Result * Hepatitis C Screening (12/12/2022) Pathologist [facility] Hepatitis C Screening abstracted Historical Provider HEALTH MAINTENANCE Final Result from Last 3 Months or Most Recently Relevant to Health Maintenance [place] [place] [address] Care Teams Podopediatrician Relationship Specialty Start Date End Date Tyrell Amezquita PA [address] [place] [id number] PCP - General Internal Medicine 04/27/21
--- OUTSIDE RECORDS SUMMARY | 2025-01-07 06:21 | XMS_ITS | Encounter Summary ---
Author Organization [facility] Address [address] [place] [address] Care Team Providers Care Ship Fitter Name Role Phone Tyrell Amezquita Primary Care Provider [phone] Reason for Referral * Imaging (Routine) - Pending Review Specialty Diagnoses / Procedures Referred By Frank cochran Referred To Contact Radiology Diagnoses Dysuria Left testicular pain Prostatitis, unspecified prostatitis type Procedures US Scrotum and Contents Tyrell Amezquita PA [address] [place] [address] Phone: tel: fax: [address] Phone: tel: Referral ID Status Reason Start Date Expiration Date V isits Requested Visits Authorized [id number] Pending Review 12/08/2024 12/08/2025 1 1 Reason for Visit * Imaging (Routine) - Pending Review Specialty Diagnoses / Procedures Referred By Frank cochran Referred To Contact Radiology Diagnoses Dysuria Left testicular pain Prostatitis, unspecified prostatitis type Procedures US Scrotum and Contents Tyrell Amezquita PA [address] [place] [address] Phone: tel: fax: [address] Phone: tel: Referral ID Status Reason Start Date Expiration Date V isits Requested Visits Authorized [id number] Pending Review 12/08/2024 12/08/2025 1 1 Encounter Details Date Type Department Care Team (Latest Contact Info) Description 12/22/2024 9:57 AM EST - 12/22/2024 11:59 PM EST Hospital Encounter Radiology Department - [address] [phone] Dysuria; Left testicular pain; Prostatitis, unspecified prostatitis [...] 3:00 PM EDT Office Visit Adult Medicine [facility] [address] [place] [address] Tyrell Amezquita PA [address] [place] [address] documented as of this encounter Procedures Procedure Name Priority Date/Time Associated Diagnosis Comments US SCROTUM AND CONTENTS Routine 12/22/2024 10:43 AM EST Dysuria Left testicular pain Prostatitis, unspecified prostatitis type documented in this encounter Results * US Scrotum and Contents (12/22/2024 [...] Signed Date: 12/22/2024 10:51 ET Workstation ID: [id number] Transcribed By: Self Edit Transcribed Date: 12/22/2024 [...] Signed Date: 12/22/2024 10:51 ET Workstation ID: [id number] Transcribed By: Self Edit Transcribed Date: 12/22/2024 10:49 ET Tyrell WADDELL IMG US PROCEDURES Final R esult documented in this encounter Visit Diagnoses Diagnosis Dysuria Left testicular pain Prostatitis, unspecified prostatitis type documented in this encounter Care Teams Ship Fitter Relationship Specialty Start Date End Date Tyrell Amezquita PA [address] [place] [address] PCP - General Internal Medicine 04/27/21 documented as of this encounter
--- OUTSIDE RECORDS SUMMARY | 2025-01-07 06:21 | XMS_ITS | Encounter Summary ---
Author Organization [facility] Address [address] [place] [address] Care Team Providers Care Heel Pricker Name Role Phone Tyrell Amezquita Primary Care Provider [phone] Reason for Referral * Imaging (Routine) - Pending Review Specialty Diagnoses / Procedures Referred By Contac t Referred To Contact Radiology Diagnoses Dysuria Left testicular pain Prostatitis, unspecified prostatitis type Procedures US Retroperitoneal Complete Tyrell Amezquita PA [address] [place] [address] Phone: tel: fax: [address] Phone: tel: Referral ID Status Reason Start Date Expiration Date V isits Requested Visits Authorized [id number] Pending Review 12/08/2024 12/08/2025 1 1 * Imaging (Routine) - Pending Review Specialty Diagnoses / Procedures Referred By Contac t Referred To Contact Radiology Diagnoses Dysuria Left testicular pain Prostatitis, unspecified prostatitis type Procedures US Scrotum and Contents Tyrell Amezquita PA [address] [place] [address] Phone: tel: fax: [address] Phone: tel: Referral ID Status Reason Start Date Expiration Date V isits Requested Visits Authorized [id number] Pending Review 12/08/2024 12/08/2025 1 1 * Consultation (Routine) - Authorized Specialty Diagnoses / Procedures Referred By Contclyde t Referred To Contact Urology Diagnoses Dysuria Left testicular pain Prostatitis, unspecified prostatitis type Tyrell Amezquita PA [address] [place] [address] Phone: tel: fax: [facility] [address] [place] [address] Phone: tel: fax: Referral ID Status Reason Start Date Expiration Date Visits Requested Visits Authorized [id number] Authorized Specialty Services Required 12/08/2024 12/08/2025 1 1 Reason for Visit * Reason Comments Follow-up Urgent care visit [facility] / Pt. Needs referral for Urology Encounter Details Date Type Department Care Team (Late st Contact Info) Description 12/08/2024 9:30 AM EST Office Visit Adult Medicine [address] [phone] Tyrell Amezquita PA [address] [place] [address] Prostatitis, unspecified prostatitis type (Primary Dx); Dysuria; Left testicular pain Social History Tobacco Use Types Packs/Day Years [...] on file documented as of this encounter Last Filed Vital Signs Vital Sign Reading [...] Mass Index 27.49 12/08/2024 9:12 AM EST documented in this encounter Ordered Prescriptions Prescription Sig Dispense Quantity Refills Last Filled Start Date End Date LORazepam (ATIVAN) 0.5 mg tablet Take 1 tablet (0.5 mg total) by mouth every 8 (eight) hours if needed for anxiety (Take 1 tablet as needed for anxiety/panic symptoms). Max Daily Amount: 1.5 mg 30 tablet 12/08/2024 simvastatin (ZOCOR) 10 mg tablet Take 1 tablet (10 mg total) by mouth at bedtime. For 180 days 90 tablet 3 12/08/2024 levoFLOXacin (LEVAQUIN) 750 mg tablet Take 1 tablet (750 mg total) by mouth 1 (one) time each day for 14 days. 14 tablet 12/08/2024 5 documented in this encounter Progress Notes * NADIRA Lisa - 12/08/2024 9:30 AM EST CHIEF COMPLAINT: Follow-up (Urgent care visit [facility] / Pt. Needs referral for Urology ) IDENTIFIER: Ash Rosales is a 59 y.o. old male. HPI: This pleasant gentleman presents today for evaluation of some urinary symptoms and also left-sided scrotal pain. He had similar symptoms about a year ago was eventually diagnosed with prostatitis he ended up seeing urology for this. He has noticed some bodyaches and chills no fevers. There is a sensation of discomfort that seems to be alleviated when he urinates. Denies any hematuria does not really have any other urinary symptoms. He has some left-sided scrotal pain that seems to radiate to the left buttock area. Denies any complaints no hernias that he has noticed. He did go to urology was treated with doxycycline which did not really seem to help with symptoms unfortunately ROS: GENERAL: Negative for malaise, significant weight loss and fever RESPIRATORY: No cough, wheezing or shortness of breath CARDIOVASCULAR: Negative for chest pain, leg swelling and palpitations GI: Negative for abdominal discomfort, changes in bowel habits, blood in stool or black stools : See HPI PAST MEDICAL HISTORY: Patient Active Problem List Diagnosis Date Noted Arrhythmia 04/20/2023 Tubular adenoma of colon 12/11/2022 Other viral warts 12/11/2022 Mixed hyperlipidemia 04/18/2019 Atrial fibrillation (CMS/HCC) 06/14/2016 Kidney cysts 11/28/2011 Neoplasm of uncertain behavior of skin 11/06/2008 Claustrophobia 10/26/2008 Pure hypercholesterolemia 07/04/2006 Infectious mononucleosis 07/04/2006 Past Surgical History: Procedure Laterality Date COLONOSCOPY 08/25/2016 PROCEDURE: HISTORICAL COLONOSCOPY; COMMENT: 2 polyps, tics, hemorrhoids. COLONOSCOPY 02/01/2024 PROCEDURE: HISTORICAL COLONOSCOPY; COMMENT: dr. elise -diverticulosis repeat 5 years HERNIA REPAIR Right 11/12/1985 PROCEDURE: HISTORICAL HERNIA REPAIR/ING OTHER SURGICAL HISTORY 06/30/2020 PROCEDURE: UPPER GI ENDOSCOPY, REMOVE LESION; COMMENT: muslu -normal. SOCIAL HISTORY: Social History Tobacco Use Smoking status: Never Smokeless tobacco: Never Substance Use Topics Alcohol use: Yes FAMILY HISTORY: Family History Problem Relation Name Age of Onset Diabetes Father Coronary artery disease Father early 60's onset Other cancer Other possible in grandmother, uncertain type Hypertension Neg Hx Blindness Neg Hx Cataracts Neg Hx Glaucoma Neg Hx Macular degeneration Neg Hx Strabismus Neg Hx Family Status Relation Name Status Father at age 71 AAA pvd cabg at 62 dm Other (Not Specified) Neg Hx (Not Specified) Mother Sister Alive No partnership data on file MEDICATIONS DISCONTINUED/REORDERED: Medications Discontinued During This Encounter Medication Reason simvastatin (ZOCOR) 10 mg tablet Reorder LORazepam (ATIVAN) 0.5 mg tablet Reorder ACTIVE MEDICATIONS: Outpatient Medications Marked as Taking for the 12/08/24 encounter (Office Visit) with NADIRA Lisa Medication Sig Dispense Refill cyclobenzaprine (FLEXERIL) 5 mg tablet Take 1 tablet (5 mg total) by mouth at bedtime. ibuprofen (ADVIL,MOTRIN) 800 mg tablet Take 1 tablet (800 mg total) by mouth every 8 (eight) hours if needed for mild pain (for up to 30 days). LORazepam (ATIVAN) 0.5 mg tablet Take 1 tablet (0.5 mg total) by mouth every 8 (eight) hours if needed for anxiety (Take 1 tablet as needed for anxiety/panic symptoms). Max Daily Amount: 1.5 mg 30 tablet 0 simvastatin (ZOCOR) 10 mg tablet Take 1 tablet (10 mg total) by mouth at bedtime. For 180 days 90 tablet 3 [DISCONTINUED] simvastatin (ZOCOR) 10 mg tablet Take 1 tablet (10 mg total) by mouth at bedtime. For 180 days ALLERGIES: Allergies Allergen Reactions Rosuvastatin Pain Other Reaction(s): ACHES Sulfamethoxazole-Trimethoprim Numbness and Rash PHYSICAL EXAM: Visit Vitals BP 122/67 Pulse 93 Temp 36.5 ??C (97.7 ??F) (Temporal) Resp 12 Ht 1.727 m (68 ) Wt 82 kg (180 lb 12.8 oz) BMI 27.49 kg/m?? Smoking Status Never BSA 1.96 m?? General appearance: alert and oriented, in no acute distress Lungs: clear to auscultation bilaterally Heart: regular rate and rhythm, S1, S2 normal, no murmur, click, rub or gallop Abdomen: soft, non-tender; bowel sounds normal; no masses, no organomegaly Male genitalia: Mildly tender left hemiscrotum no masses noted no hernias Rectal: Patient declined LABS/IMAGING: Labs, ultrasound IMPRESSION: 1. Prostatitis, unspecified prostatitis type 2. Dysuria 3. Left testicular pain PLAN: 1. I think prostatitis is a distinct possibility. Patient elected to skip the rectal exam as he does plan on seeing urology for follow-up and anticipates they probably will be doing this as well we will check some labs, I also ordered an ultrasound of the scrotum and ultrasound of the kidneys ureters and bladder to investigate further. He did not seem to respond to doxycycline will try some Levaquin instead discussed adverse effects. I did place a referral for urology and looks like he was seen[facility] urology the last time. Advised the patient to call me if any problems. Patient understands the plan. Patient is in agreement with the plan. documented in this encounter Plan of Treatment Upcoming Encounters Date Type Department Care Team (Late st Contact Info) Description 03/09/2025 3:00 PM EDT Office Visit [facility] [address] [place] [address] Tyrell Amezquita PA [address] [place] [address] Scheduled Orders Name Type Priority Associated Diagnoses Orde r Schedule Culture urine Microbiology Routine Dysuria Left testicular pain Prostatitis, unspecified prostatitis type 1 Occurrences starting 12/08/2024 until 12/08/2025 Scheduled Referrals Name Type Priority Associated Diagnoses Order Schedule Ambulatory referral to Urology Outpatient Referral Routine Dysuria Left testicular pain Prostatitis, unspecified prostatitis type 1 Occurrences starting 12/08/2024 until 12/08/2025 documented as of this encounter Results * US Scrotum and [...] Signed Date: 12/22/2024 10:51 ET Workstation ID: [id number] Transcribed By: Self Edit Transcribed Date: 12/22/2024 [...] Signed Date: 12/22/2024 10:51 ET Workstation ID: [id number] Transcribed By: Self Edit Transcribed Date: 12/22/2024 [...] Signed Date: 12/22/2024 10:54 ET Workstation ID: [id number] Transcribed By: Self Edit Transcribed Date: 12/22/2024 [...] Signed Date: 12/22/2024 10:54 ET Workstation ID: [id number] Transcribed By: Self Edit Transcribed Date: 12/22/2024 10:52 ET Tyrell MORGAN US PROCEDURES Final R esult * Prostate specific antigen screen (12/08/2024 4:22 PM EST) PSA 0.75 0.00 - 4.00 ng/mL LAB CHEMISTRY METHOD 12/08/2024 7:47 PM [facility] Blood Venous blood specimen / Unknown Venipuncture / Unknown 12/08/2024 4:22 PM EST 12/08/2024 4:22 PM EST [facility] - 12/08/2024 7:47 PM EST The Siemens Advia Centaur Chemiluminescent Immunoassay is used. Results obtained with different assay methods or kits cannot be used interchangeably. Results cannot be interpreted as absolute evidence of the presence or absence of malignant disease. Tyrell WADDELL LAB BLOOD ORDERABLES Esther lozada Result [facility] [address] [place] [address], * (ABNORMAL) Comprehensive metabolic panel (12/08/2024 4:22 PM EST) Sodium 136 133 - 145 mmol/L LAB CHEMISTRY METHOD 12/08/2024 7:40 PM [facility] Potassium 3.6 3.5 - 5.5 mmol/L LAB CHEMISTRY METHOD 12/08/2024 7:40 PM [facility] Chloride 102 96 - 110 mmol/L LAB CHEMISTRY METHOD 12/08/2024 7:40 PM [facility] CO2 29 21 - 32 mmol/L LAB CHEMISTRY METHOD 12/08/2024 7:40 PM [facility] Anion Gap 5 3 - 11 LAB CHEMISTRY METHOD 12/08/2024 7:40 PM [facility] Glucose 111(H) 70 - 100 mg/dL LAB CHEMISTRY METHOD 12/08/2024 7:40 PM [facility] BUN 17 5 - 25 mg/dL LAB CHEMISTRY METHOD 12/08/2024 7:40 PM [facility] Creatinine 0.72 0.70 - 1.30 mg/dL LAB CHEMISTRY METHOD 12/08/2024 7:40 PM [facility] eGFR 106 >=60 mL/min/1. 73m2 LAB CHEMISTRY METHOD 12/08/2024 7:40 PM [facility] Comment:Calculation based on the??Chronic Kidney Disease Epidemiology Collaboration (CKD-EPI) equation refit??without adjustment for race. BUN/Creatinine Ratio 23.6 LAB CHEMISTRY METHOD 12/08/2024 7:40 PM [facility] Calcium 8.6 8.5 - 10.5 mg/dL LAB CHEMISTRY METHOD 12/08/2024 7:40 PM [facility] AST (SGOT) 25 10 - 42 unit/L LAB CHEMISTRY METHOD 12/08/2024 7:40 PM [facility] ALT (SGPT) 38 10 - 60 unit/L LAB CHEMISTRY METHOD 12/08/2024 7:40 PM [facility] Alkaline Phosphatase 82 42 - 121 unit/L LAB CHEMISTRY METHOD 12/08/2024 7:40 PM [facility] Total Protein 7.2 6.0 - 8.0 g/dL LAB CHEMISTRY METHOD 12/08/2024 7:40 PM [facility] Albumin 4.0 3.2 - 5.0 g/dL LAB CHEMISTRY METHOD 12/08/2024 7:40 PM [facility] Total Bilirubin 0.7 0.0 - 1.4 mg/dL LAB CHEMISTRY METHOD 12/08/2024 7:40 PM [facility] Blood Venous blood specimen / Unknown Venipuncture / Unknown 12/08/2024 4:22 PM EST 12/08/2024 4:22 PM EST us Tyrell WADDELL LAB BLOOD ORDERABLES Esther lozada Result [facility] [address] [place] [address], documented in this encounter Visit Diagnoses Diagnosis Prostatitis, unspecified prostatitis type- Primary Dysuria Left testicular pain Dysuria Left testicular pain Prostatitis, unspecified prostatitis type Dysuria Left testicular pain Prostatitis, unspecified prostatitis type documented in this encounter Discontinued Medications Medication Sig Discontinue Reason Start Date End Da te simvastatin (ZOCOR) 10 mg tablet Take 1 tablet (10 mg total) by mouth at bedtime. For 180 days Reorder 12/08/2024 LORazepam (ATIVAN) 0.5 mg tablet Take 1 tablet (0.5 mg total) by mouth every 8 (eight) hours if needed for anxiety (Take 1 tablet as needed for anxiety/panic symptoms). Max Daily Amount: 1.5 mg Reorder 02/19/2024 12/08/2024 documented as of this encounter Historical Medications * This list may reflect changes made after this encounter. famotidine (PEPCID) 40 mg tablet Take 0.5 tablets (20 mg total) by mouth 1 (one) time each day. cyclobenzaprine (FLEXERIL) 5 mg tablet Take 1 tablet (5 mg total) by mouth at bedtime. 12/07/2024 added in this encounter Care Teams Heel Pricker Relationship Specialty Start Date End Date Tyrell Amezquita PA [address] [place] [address] PCP - General Internal Medicine 04/27/21 documented as of this encounter
--- NOTE | 2025-01-07 07:20 | ED_ITS ---
HPI - Neck Pain/Injury General Chief Complaint: Neck Pain/Injury Stated Complaint: right side shoulder and arm pain Time Seen by Provider: 01/07/25 06:56 Source: patient Mode of arrival: ambulatory Limitations: no limitations History of Present Illness HPI Narrative: this is a very pleasant 59 years old male presented to the emergency department complaining of neck pain radiated to the right shoulder right upper extremity pain he has been going on for weeks. Denies any numbness in the weakness any injury MD complaint: neck pain Onset (ago): week(s) Radiation: right lateral Severity: moderate Quality: burning Relieving factors: none Exacerbating factors: none Associated symptoms: none Treatments prior to arrival: none Related Data Previous Rx's ?Medication ?Instructions ?Recorded oxycodone 5 mg tablet 5 mg PO Q6H PRN pain #15 tabs 01/07/25 Allergies Allergy/AdvReac Type Severity Reaction Status Date / Time No Known Allergies Allergy Verified 01/07/25 01:30 Review of Systems Constitutional: Constitutional: Reports no additional constitutional complaints ENT: Reports system reviewed and no additional complaints, except as documented Cardiovascular: Cardiovascular: Reports no additional cardiovascular complaints Gastrointestinal: Gastrointestinal: Reports no additional gastrointestinal complaints COUNT INCLUDES THE [facility] Past Medical History COUNT INCLUDES THE [facility] Narrative: DJD Social History Social History Advance Directives: No Do you have a plan to hurt others: No Plan Physical Exam Vital Signs: Vital Signs: Last Vital Signs Temp 97.5 F 01/07/25 07:36 Pulse 82 01/07/25 07:36 Resp 16 01/07/25 07:36 BP 116/55 L 01/07/25 07:36 Pulse Ox 98 01/07/25 07:36 O2 Del Method Room Air 01/07/25 06:01 BMI result Body Mass Index 27.2 he looks well is very comfortable in the stretcher very pleasant Const: General: cooperative, healthy appearing, comfortable, no acute distress, well developed, alert and awake Nutritional Appearance: average body habitus Orientation/consciousness: patient oriented x3 Limitations: no limitations HEENT: Head: Yes normal to inspection Ears: hearing grossly normal bilaterally General nose exam: Normal external nose present Face and sinus: Yes normal facial exam Mouth: Normal oral and palatal mucosa present Throat: Yes posterior oropharynx normal Neck: Other: full range of motion no tendernes Neck: Yes full ROM Chest: Chest palpation & inspection: normal inspection of the chest Resp: Effort & Inspection: normal respiratory effort Auscultation: clear to auscultation bilaterally Cardio: Jugular venous distension: no JVD Rate: regular rate Rhythm: regular rhythm GI: Inspection: Yes normal to inspection Auscultation: normal bowel sounds Skin: General skin exam: no rashes or lesions noted Neuro: Other: neuro exam was perform strength is normal upper and lower extremity 5 /5, no deficit in sensation, gait is stable General: patient oriented x3 Medications Administered Discontinued Medications Generic Name Dose Route Start Last Admin Trade Name Freq PRN Reason Stop Dose Admin Acetaminophen 975 mg 01/07/25 06:02 01/07/25 06:04 Acetaminophen 325 Mg Tablet PO 01/07/25 06:03 975 mg ONCE ONE Administration Medical Decision Making Medical Decision Making [facility] Narrative: patient presented with neck pain radiated to the upper extremity reasonable to get imaging of the cervical spine Differential Diagnosis Differential Diagnoses: The differential diagnosis associated with the presentation includes cervical strain /radiculopathy Admission/Observation Consideration of admission/observation: Escalation of care including admission/observation considered Independent Interpretation I performed an independent interpretation of an: Plain X-Ray Radiology Impression Discussion of test interpretation with radiology: I have reviewed the radiologist's reading. Radiologist Impression: 5 views cervical spine Comparison: None Findings: Normal alignment. No acute fractures or dislocation. Multilevel spondylosis with osteophytosis, uncovertebral hypertrophy, facet arthropathy and degenerative disc disease. No prevertebral soft tissue swelling. IMPRESSION: Chronic changes without acute findings. This document has been electronically signed by: Rory Saha MD on 01/07/2025 02:48:55 Dictated By: Rory Saha MD Signed By: <Electronically signed by Rory Saha MD in OV> 01/07/25 0250 Discharge Plan Discharge Clinical Impression: Cervical radiculopathy Patient Disposition: Home, Self-Care Instructions: Cervical Radiculopathy (ED) Additional Instructions: follow-up with your primary care physician return to the emergency room if worse we sent a few pain medicine for you to [facility] in [place] , you may need an outpatient MRI please follow-up with your primary care physician Prescriptions: New oxycodone 5 mg tablet 5 mg PO Q6H PRN (Reason: pain) Qty: 15 0RF Rx Instructions: partial filing upon pt request; Partial Fill upon patient request. Referrals: Tyrell Amezquita PA [Primary Care Provider] - 2 days Interventions: ED Discharge Assessment Last Done: 01/07/25 07:36 Discharge Date/Time: 01/07/25 07:36 Print Language: Yemeni
[2025-01-07 07:36] VITALS: BP 116/55; PULSE 82; RESP 16; TEMP 36.4; O2SAT 98
== END 2025-01-07 07:36 | disposition home or self-care (01) ==
PROVIDERS: Emergency Provider Emergency Medicine; PCP Physician Assistant Medical
DX: M54.12 Radiculopathy, cervical region (principal); M54.2 Cervicalgia
CPT/HCPCS: 72040; 73030; 99283; 99284

== ENCOUNTER → 2025-01-07 02:35 | Outpatient (BNV) | payer BC, SELFPAY | PROVIDERS: PCP Physician Assistant Medical; Visit Provider Radiology Diagnostic Radiology | DX: M54.2 Cervicalgia (principal); M25.511 Pain in right shoulder | CPT/HCPCS: 72040; 73030 ==

== ENCOUNTER 2025-03-21 11:06 | Inpatient (IN) | payer BC, SELFPAY ==
[2025-03-21] VITALS (8 sets, daily range): BP systolic 90–139; BP diastolic 52–78; PULSE 66–133; RESP 14–18; TEMP 35.9–37.1; O2SAT 96–99; BMI 27.2
--- NOTE | ~2025-03-21 | CT_ITS ---
CLINICAL HISTORY: RUQ pain, concern for biliary process CT ABDOMEN AND PELVIS WITH CONTRAST Comparison: None Findings: Please see the separate report for the CTA chest. Tiny hiatal hernia. Gallbladder is partly contracted with no definite large calcified stone. No intrahepatic or extrahepatic biliary ductal dilatation. No acute abnormalities in the solid organs. Multiple hepatic cysts measure up to 1.9 cm in the left lobe and 1.7 cm in the right lobe. Additional hepatic hypodensities are less than 1 cm in size and too small to accurately characterize. No urolithiasis. There is a 1.1 cm left renal cyst. There are additional subcentimeter left renal cortical hypodensities that are too small to accurately characterize. Mildly thickened adrenal glands can be seen with hyperplasia. No AAA. No bowel obstruction, pneumoperitoneum, or pneumatosis. No ascites or organized fluid collection. The appendix is identified. No acute appendicitis. Colonic diverticulosis. No acute diverticulitis. Urinary bladder and prostate unremarkable. Bilateral fat containing inguinal hernias. The bones are intact. IMPRESSION: 1. Motion affected study. 2. Partly contracted gallbladder with no CT evidence for cholelithiasis. No biliary ductal dilatation. Consider follow-up ultrasound after appropriate patient preparation. 3. No obstructive or acute inflammatory changes in the gastrointestinal and genitourinary tracts. 4. Diverticulosis coli. This document has been electronically signed by: Bianca Ledezma DO on 03/21/2025 14:37:37
--- NOTE | ~2025-03-21 | CT_ITS ---
CLINICAL HISTORY: chest pain, hx of atrial fib not on anti-coag CT ANGIOGRAPHY CHEST WITH CONTRAST. 3D POSTPROCESSING. Comparison: None Findings: The heart is normal size. RV/LV ratio is normal. Unremarkable thoracic aorta and great vessels. No aneurysm or dissection. No acute pulmonary embolus. The visualized thyroid and mediastinum are unremarkable. No consolidation, pleural effusion or pneumothorax. Please see the separate report for the CT abdomen and pelvis. No acute fractures. IMPRESSION: 1. No pulmonary emboli. This document has been electronically signed by: Bianca Ledezma DO on 03/21/2025 14:44:47
--- NOTE | 2025-03-21 11:13 | ECG_ITS ---
Test Reason : cp Blood Pressure : */* mmHG Vent. Rate : 90 BPM Atrial Rate : 90 BPM P-R Int : 122 ms QRS Dur : 90 ms QT Int : 334 ms P-R-T Axes : 63 81 12 degrees QTcB Int : 408 ms Normal sinus rhythm with sinus arrhythmia Normal ECG No previous ECGs available Referred By: Generic ED Physician Electronically Signed By: QUEENIE DEL TORO
[2025-03-21 11:25] LABS: MANUAL DIFF FLAG NO
[2025-03-21 11:26] LABS: Basophils Absolute Auto 0.1 X10*3/uL (0.0-0.2); Basophils Percent Auto 0.9 % (0-2); Eosinophils Absolute Auto 0.1 X10*3/uL (0.0-0.4); Eosinophils Percent Auto 2.4 % (0-4); Hemoglobin 14.7 g/dl (14.0-18.0); Imm Gran Abs Auto 0.01 X10*3/uL (0.00-0.03); Imm Gran Pct Auto 0.2 % (0.0-0.4); Lymphocytes Absolute Auto 1.5 X10*3/uL (1.2-4.9); Mean Corpuscular Hemoglobin 29.7 pg (27.0-33.0); Mean Corpuscular Volume 84.8 fL (80.0-98.0); Mean Platelet Volume 10.1 fL (9.4-12.4); Monocytes Absolute Auto 0.5 X10*3/uL (0.1-1.2); Monocytes Percent Auto 9.5 % (2-11); Neutrophils Absolute Auto 3.3 x10*3/uL (2.0-8.3); Platelet Count 236 X10*3/uL (160-400); Red Blood Count 4.95 X10*6/uL (4.60-5.80); Red Cell Distribution Width 12.9 % (11.0-16.0); White Blood Count 5.5 X10*3/uL (4.8-10.8)
[2025-03-21 11:43] LABS: Alanine Aminotransferase 36 U/L (0-40); Albumin Level 4.4 g/dL (3.5-5.0); Alkaline Phosphatase 66 U/L (39-117); Anion Gap 12 (12-20); Aspartate Amino Transferase 27 U/L (5-37); Bilirubin Total 0.7 mg/dL (0.0-1.0); Blood Urea Nitrogen 12 mg/dL (9-16); Calcium 9.3 mg/dL (8.4-10.2); Carbon Dioxide 27 mmol/L (22-29); Chloride 107 mmol/L (96-108); Creatinine Clr Calc Pharmacy 91.6; Estimated Glomerular Filt Rate > 60; Glucose Random 94 mg/dL (60-115); Sodium 142 mmol/L (135-145); Total Protein 7.3 g/dL (6.5-8.0)
[2025-03-21 11:57] LABS: Troponin-I High Sensitivity < 2.7 ng/L (<3.5-35.0)
--- NOTE | 2025-03-21 12:04 | ED_ITS ---
HPI - Chest Pain General Chief Complaint: Chest Pain Stated Complaint: chest pain Time Seen by Provider: 03/21/25 12:04 Source: patient and family (patient's ) Mode of arrival: ambulatory Limitations: no limitations History of Present Illness ED Provider: Renate Osorio PA-C HPI narrative: Patient is a 59 year old assigned male at with a history of atrial fib (not on anticoagulation medicine or rate control) and GERD presenting to the emergency department today with right sided chest pain. Patient states that over the last 5 days he has had right sided chest pain that feels similar to acid reflux but worse and radiates into his right shoulder blade / mid back. Patient denies any dizziness, lightheadedness, abdominal pain, nausea, vomiting, fever, chills, blurry vision, double vision, loss of vision, difficulty breathing, shortness of breath, night sweats, pain with urination, increased urinary frequency, increased urinary urgency, blood in his urine or stool, syncope or a near syncopal episode, recent trauma or falls, bowel incontinence, bladder incontinence, or any other complaints at this time. Related Data Home Medications ?Medication ?Instructions ?Recorded ?Confirmed acetaminophen 500 mg tablet 500 mg PO Q6H PRN Pain 03/21/25 03/21/25 ibuprofen 200 mg tablet 400 mg PO Q8H PRN Pain 03/21/25 03/21/25 lorazepam 0.5 mg tablet 0.5 mg PO DAILY PRN Anxiety 03/21/25 03/21/25 meloxicam 7.5 mg tablet 7.5 mg PO DAILY PRN Pain 03/21/25 03/21/25 multivitamin 1 tab PO DAILY 03/21/25 03/21/25 simvastatin 10 mg tablet 10 mg PO BEDTIME 03/21/25 03/21/25 Previous Rx's ?Medication ?Instructions ?Recorded apixaban 5 mg tablet (Eliquis) 5 mg PO BID #180 tabs 03/23/25 diltiazem HCl 120 mg 120 mg PO DAILY #90 caps 03/23/25 capsule,extended release 24 hr (Cardizem CD) flecainide 50 mg tablet 50 mg PO BID #180 tabs 03/23/25 Allergies Allergy/AdvReac Type Severity Reaction Status Date / Time No Known Allergies Allergy Verified 03/21/25 11:27 Review of Systems 2 Constitutional: Constitutional: Reports no additional constitutional complaints, Denies chills, Denies fever(s) and Denies night sweats Eyes: Eyes: Reports no additional eye complaints, Denies blurry vision, Denies change in vision, Denies diplopia, Denies eye discharge, Denies loss of vision and Denies eye pain ENT: Denies dizziness Cardiovascular: Cardiovascular: Reports no additional cardiovascular complaints, Reports chest pain, Denies lightheadedness, Denies Loss of Consciousness and Denies dyspnea Respiratory: Respiratory: Reports no additional respiratory complaints and Denies dyspnea Gastrointestinal: Gastrointestinal: Reports no additional gastrointestinal complaints, Denies abdominal pain, Denies melena, Denies hematochezia, Denies change in bowel habits and Denies change in stool character Genitourinary: Genitourinary: Reports no additional male genitourinary complaints, Denies hematuria, Denies oliguria, Denies difficulty urinating, Denies dysuria, Denies urinary frequency, Denies urinary hesitancy, Denies urinary incontinence and Denies urinary urgency Musculoskeletal: Musculoskeletal: Reports no additional musculoskeletal complaints, Denies numbness and Denies tingling Neurologic: Denies dizziness, Denies loss of vision, Denies numbness and Denies tingling Psychiatric: Psychiatric: Reports no additional psychiatric complaints Endocrine: Endocrine: Reports no additional endocrine complaints Hematologic/Lymphatic: Hematologic/Lymphatic: Reports no additional hematologic/lymphatic complaints Allergic/Immunologic: Allergic/Immunologic: Reports no additional allergic/immunologic complaints PMFSH Past Medical History Attestation statement: The following information was validated with the patient. Source: old records reviewed and nursing notes reviewed Medical History (Updated 03/23/25 @ 12:14 by oRc Melendez MD) Afib Family History Family History (Updated 03/22/25 @ 10:37 by Rishi Johnson MD) Father Hx of heart surgery Social History Social History Household Members: Family Housing: House Do you presently have visiting nurse or other home services: No Patient Tobacco Use Status: Never used Tobacco Smoked in Last 30 Days: No Use of substances other than those prescribed or required for medical reasons: No Currently Displaying Signs/Symptoms of Drug Intoxication Withdrawal: No Have you been hit, kicked, punched, or otherwise hurt by someone within the past year? If so, by whom?: No Advance Directives: No Advance Directives Information Provided: No Do you have a plan to hurt others: No Plan Recently lost weight without trying: No Nutrition Risks: No Nutritional Risk Poor oral hygiene: No service: No Physical Exam 2 Vital Signs: Vital Signs: Last Vital Signs Temp 97.1 F 03/23/25 11:04 Pulse 90 03/23/25 11:04 Resp 16 03/23/25 11:04 BP 128/74 03/23/25 11:04 Pulse Ox 100 03/23/25 11:04 O2 Del Method Room Air 03/23/25 11:04 O2 Flow Rate 99 03/21/25 14:00 BMI result Body Mass Index 27.2 Const: General: cooperative, no acute distress, alert and awake Nutritional Appearance: well nourished Orientation/consciousness: patient oriented x3 HEENT: Head: Yes normal to inspection and Yes atraumatic Ears: hearing grossly normal bilaterally and external ears normal General nose exam: Normal external nose present, no nasal discharge noted and no epistaxis Face and sinus: Yes normal facial exam, No abrasion and No laceration Mouth: Normal oral and palatal mucosa present, no drooling and no muffled voice Eyes: General: appearance normal, both eyes and all related structures P eriorbital: periorbital findings normal Eyelids: Yes eyelids normal C onjunctivae: conjunctivae normal Pupils: Equal, round and reactive pupils present EOM: EOMs intact bilaterally Neck: Neck: Yes normal visual inspection, Yes full ROM and Yes no lymphadenopathy Resp: Effort & Inspection: normal respiratory effort and able to speak in complete sentences Neuro: General: patient oriented x3, moves all extremities and CN's II-XI intact bilaterally Cranial nerves: Yes Equal, round and reactive pupils present Cognition (Neuro): normal cognition Extrem: General: Yes normal to inspection, Yes full ROM and Yes capillary refill normal Psych: Appearance: grossly normal Mental Status: mental status grossly normal Affect: normal affect Attitude: cooperative Thought process: N ormal thought process present Thought content: Normal thought content present Insight: Good insight present (Psych) Medications Administered Generic Name Dose Route Start Last Admin Trade Name Freq PRN Reason Stop Dose Admin Apixaban 5 mg 03/21/25 21:00 03/23/25 09:12 Apixaban 5 Mg Tablet PO 5 mg BID ANDRAE Administration Atorvastatin Calcium 10 mg 03/21/25 21:00 03/22/25 20:30 Atorvastatin Calcium 10 Mg Tablet PO 10 mg BEDTIME ANDRAE Administration Calcium Carbonate 750 mg 03/21/25 16:00 03/21/25 20:40 Calcium Carbonate 750 Mg Tab.Chew PO 750 mg Q4H PRN Administration Heartburn Diltiazem HCl 120 mg 03/23/25 09:00 03/23/25 09:12 Diltiazem Hcl Cd 120 Mg Cap.Er.Deg PO 120 mg DAILY ANDRAE Administration Protocol Flecainide Acetate 50 mg 03/23/25 09:00 03/23/25 09:11 Flecainide Acetate 50 Mg Tablet PO 50 mg BID ANDRAE Administration Lorazepam 0.5 mg 03/21/25 16:18 03/22/25 20:30 Lorazepam 0.5 Mg Tablet PO 0.5 mg Q8H PRN Administration Anxiety Omeprazole 40 mg 03/22/25 12:00 03/23/25 05:52 Omeprazole 40 Mg Capsule.Dr PO 40 mg DAILY@0630 ANDRAE Administration Sodium Chloride 3 ml 03/21/25 16:00 03/23/25 09:11 0.9 % Sodium Chloride Flush 3 Ml Syringe IVFLUSH 3 ml QSHIFT ANDRAE Administration Discontinued Medications Generic Name Dose Route Start Last Admin Trade Name Freq PRN Reason Stop Dose Admin Diazepam 2.5 mg 03/21/25 12:39 03/21/25 12:57 Diazepam 10 Mg/2 Ml Cartridge IVPUSH 03/21/25 12:40 2.5 mg STAT STA Administration Flecainide Acetate 300 mg 03/22/25 09:21 03/22/25 09:43 Flecainide Acetate 50 Mg Tablet PO 03/22/25 09:22 300 mg ONCE ONE Administration Diltiazem HCl 125 mg/ Sodium 125 mls @ 0 mls/hr 03/21/25 15:30 03/22/25 10:55 Chloride IVCONT Infused .Q0M ANDRAE Titration Protocol Per Protocol Metoprolol Succinate 25 mg 03/21/25 14:22 03/21/25 14:32 Metoprolol Succinate Er 25 Mg Tab.Er.24h PO 03/21/25 14:23 25 mg ONCE ONE Administration Protocol Metoprolol Tartrate 5 mg 03/21/25 13:37 03/21/25 13:42 Metoprolol Tartrate 5 Mg/5 Ml Vial IVPUSH 03/21/25 13:38 5 mg ONCE ONE Administration Protocol Metoprolol Tartrate 5 mg 03/21/25 14:22 03/21/25 14:33 Metoprolol Tartrate 5 Mg/5 Ml Vial IVPUSH 03/21/25 14:23 5 mg ONCE ONE Administration Protocol Medical Decision Making Medical Decision Making [facility] Narrative: Patient is a 59 year old assigned male at with a history of atrial fib (not on anticoagulation medicine or rate control) and GERD presenting to the emergency department today with right sided chest pain. Patient's physical exam was as noted in the physical exam portion of this note. Patient's blood work was unremarkable. Patient's initial EKG was unremarkable. Patient's CT PE of the chest and CT abdomen/pelvis showed no acute process. While the patient was awaiting results, he went into atrial fib with RVR with a rate between 120-140 bpm. Patient's repeat EKG confirmed this diagnosis. Patient was given 5 mg of IV lopressor with no effect. I consulted with my attending physician, Dr. Michael Richey who recommended giving an additional 5 mg of IV lopressor and 25 mg of PO ER Metorpolol. Patient was given those medications with no effect to his heart rate. Patient was then started on a Cardizem drip. I consulted with the bulbs farmworker sld inclusion teacher who agreed with medical admission and the cardizem drip. I spoke with the hospitalist team who agreed to admission. I explained my physical exam findings as well as all test results to the patient and the patient's . I answered all questions asked by the patient's . Patient and the patient's verbalized agreement and understanding with this treatment plan and admission. Differential Diagnosis Differential Diagnoses: The differential diagnosis associated with the presentation includes ACS NSTEMI STEMI Atrial fib with RVR Atrial fib Cholecystitis Biliary colic Admission/Observation Consideration of admission/observation: Escalation of care including admission/observation considered Patient admitted as noted in the MDM Rationale portion of this note. Consult Healthcare Provider Management of the patient was discussed with: Hospitalist (agreed to admission as noted in the MDM Rationale portion of this note.) and [employer] Manager (Spoke with the bulbs farmworker as noted in the MDM Rationale portion of this note. ) Lab Data [facility] Lab Attestation statement: I reviewed the patient's lab results. My interpretation of these results are in the MDM Rationale portion of this note. 03/23/25 05:51 03/23/25 05:51 Labs: Lab Results 03/21/25 03/21/25 Range/Units 11:21 12:18 WBC 5.5 (4.8-10.8) X10*3/uL RBC 4.95 (4.60-5.80) X10*6/uL Hgb 14.7 (14.0-18.0) g/dl Hct 42.0 (42.0-52.0) % MCV 84.8 (80.0-98.0) fL MCH 29.7 (27.0-33.0) pg MCHC 35.0 (31.0-36.0) g/dl RDW 12.9 (11.0-16.0) % Plt Count 236 (160-400) X10*3/uL MPV 10.1 (9.4-12.4) fL Immature Gran % (Auto) 0.2 (0.0-0.4) % Neut % (Auto) 60.0 (45-73) % Lymph % (Auto) 27.0 (20-40) % Gilchrist % (Auto) 9.5 (2-11) % Eos % (Auto) 2.4 (0-4) % Baso % (Auto) 0.9 (0-2) % Lymph # (Auto) 1.5 (1.2-4.9) X10*3/uL Gilchrist # (Auto) 0.5 (0.1-1.2) X10*3/uL Eos # (Auto) 0.1 (0.0-0.4) X10*3/uL Baso # (Auto) 0.1 (0.0-0.2) X10*3/uL Abs Immat Gran (auto) 0.01 (0.00-0.03) X10*3/uL Absolute Neuts (auto) 3.3 (2.0-8.3) x10*3/uL Absolute Nucleated RBC 0.000 (0.0-0.012) X10*3/uL Nucleated RBC % (auto) 0.0 (0.0-0.2) /100WBC Sodium 142 (135-145) mmol/L Potassium 4.0 (3.3-5.1) mmol/L Chloride 107 (96-108) mmol/L Carbon Dioxide 27 (22-29) mmol/L Anion Gap 12 (12-20) BUN 12 (9-16) mg/dL Creatinine 0.85 (0.5-1.4) mg/dL Estim Creat Clear Calc 91.6 Estimated GFR > 60 Random Glucose 94 (60-115) mg/dL Calcium 9.3 (8.4-10.2) mg/dL Magnesium 2.1 (1.6-2.6) mg/dL Total Bilirubin 0.7 (0.0-1.0) mg/dL AST 27 (5-37) U/L ALT 36 (0-40) U/L Alkaline Phosphatase 66 (39-117) U/L Troponin I High Sens < 2.7 (<3.5-35.0) ng/L Total Protein 7.3 (6.5-8.0) g/dL Albumin 4.4 (3.5-5.0) g/dL TSH 0.66 (0.32-4.0) uIU/mL Urine Color Yellow Urine Appearance Clear Urine pH 8.0 (5.0-9.0) Ur Specific [place] <= 1.005 (1.005-1.025) Urine Protein Negative (Neg-Trace) mg/dL Urine Glucose (UA) Negative (Negative) mg/dL Urine Ketones Negative (Negative) mg/dL Urine Blood Negative (Negative) Urine Nitrite Negative (Negative) Ur Leukocyte Esterase Negative (Negative) Urine RBC 0-2 (0-2) /HPF Urine WBC 0-5 (0-5) /HPF Ur Squamous Epith Cells 0-2 (0-2) /HPF Urine Bacteria None Seen (None Seen) Hyaline Casts 0-2 (0-2) /LPF Independent Interpretation I performed an independent interpretation of an: EKG and CT Scan Interpretation: My interpretation is in agreement with the radiologist's impression of these imaging studies. L Report Number: [id number]: Total DLP = 759.00 mGy-cm CLINICAL HISTORY: RUQ pain, concern for biliary process CT ABDOMEN AND PELVIS WITH CONTRAST Comparison: None Findings: Please see the separate report for the CTA chest. Tiny hiatal hernia. Gallbladder is partly contracted with no definite large calcified stone. No intrahepatic or extrahepatic biliary ductal dilatation. No acute abnormalities in the solid organs. Multiple hepatic cysts measure up to 1.9 cm in the left lobe and 1.7 cm in the right lobe. Additional hepatic hypodensities are less than 1 cm in size and too small to accurately characterize. No urolithiasis. There is a 1.1 cm left renal cyst. There are additional subcentimeter left renal cortical hypodensities that are too small to accurately characterize. Mildly thickened adrenal glands can be seen with hyperplasia. No AAA. No bowel obstruction, pneumoperitoneum, or pneumatosis. No ascites or organized fluid collection. The appendix is identified. No acute appendicitis. Colonic diverticulosis. No acute diverticulitis. Urinary bladder and prostate unremarkable. Bilateral fat containing inguinal hernias. The bones are intact. IMPRESSION: 1. Motion affected study. 2. Partly contracted gallbladder with no CT evidence for cholelithiasis. No biliary ductal dilatation. Consider follow-up ultrasound after appropriate patient preparation. 3. No obstructive or acute inflammatory changes in the gastrointestinal and genitourinary tracts. 4. Diverticulosis coli. This document has been electronically signed by: Bianca Ledezma DO on 03/21/2025 14:37:37 Dictated By: Bianca Ledezma MD Signed By: Electronically signed by Bianca Ledezma MD 03/21/25 1438 Report Number: [id number]: Total DLP = 0.00 mGy-cm CLINICAL HISTORY: chest pain, hx of atrial fib not on anti-coag CT ANGIOGRAPHY CHEST WITH CONTRAST. 3D POSTPROCESSING. Comparison: None Findings: The heart is normal size. RV/LV ratio is normal. Unremarkable thoracic aorta and great vessels. No aneurysm or dissection. No acute pulmonary embolus. The visualized thyroid and mediastinum are unremarkable. No consolidation, pleural effusion or pneumothorax. Please see the separate report for the CT abdomen and pelvis. No acute fractures. IMPRESSION: 1. No pulmonary emboli. This document has been electronically signed by: Bianca Ledezma DO on 03/21/2025 14:44:47 Dictated By: Bianca Ledezma MD Signed By: Electronically signed by Bianca Ledezma MD 03/21/25 1446 I independently interpreted this EKG and am in agreement with the below findings: Vent. Rate: 90 BPM Atrial Rate: 90 BPM P-R Int: 122 ms QRS Dur: 90 ms QT Int: 334 ms P-R-T Axes: 63 81 12 degrees QTcB Int: 408 ms Normal sinus rhythm with sinus arrhythmia Normal ECG No previous ECGs available DD/ 1113 Vent. Rate: 121 BPM Atrial Rate: * BPM P-R Int: * ms QRS Dur: 88 ms QT Int: 314 ms P-R-T Axes: * 73 62 degrees QTcB Int: 445 ms Atrial fibrillation with rapid ventricular response with premature ventricularor aberrantly conducted complexes Nonspecific T wave abnormality When compared with ECG of 21-Mar-2025 14:53, Atrial fibrillation has replaced Sinus rhythm Questionable change in QRS duration DD/ 1535 Radiology Impression Discussion of test interpretation with radiology: I have reviewed the radiologist's reading. Independent Historian Clinical information obtained from an independent historian. History obtained from or confirmed by: Spouse (patient's provided additional history and confirmed the history provided by the patient.) Critical Care Time Critical Care Time Critical Care Time: Yes Total Critical Care Time: 48 Attestation: I spent 48 minutes of Critical Care Time with this patient. This does not include time spent on separately reported billable procedures. Discharge Plan Discharge Clinical Impression: Atrial fibrillation with RVR, Chest pain Atrial fibrillation Qualifiers: Atrial fibrillation type: unspecified Qualified Code(s): I48.91 - Unspecified atrial fibrillation Patient Disposition: Admitted As Inpatient Interventions: Admission Worksheet (ED) Last Done: 03/21/25 16:31 Discharge Date/Time: 03/21/25 18:36
[2025-03-21 12:30] LABS: Appearance Urine Clear; Color Urine Yellow; Glucose Urine UA Negative (Negative); Leukocyte Esterase Urine Negative (Negative); Nitrite Urine Negative (Negative); Specific Gravity - Urine <= 1.005 (1.005-1.025); Urine Blood Negative (Negative); Urine Ketones Negative (Negative); Urine Protein Negative (Neg-Trace)
[2025-03-21 12:34] LABS: Bacteria Urine None Seen (None Seen); Hyaline Casts Urine 0-2 /LPF (0-2); RBC Urine 0-2 /HPF (0-2); Squamous Epithelial Cell Urine 0-2 /HPF (0-2); WBC Urine 0-5 /HPF (0-5)
[2025-03-21] MEDS: diazePAM 10 MG/2 ML CARTRIDGE 2.5 MG IVPUSH (12:57)
--- NOTE | 2025-03-21 13:01 | PC.NURSE ---
Pt reports claustrophobia and anxiety with medical procedures; pt requested medication before CT scan; pt medicated per orders
--- NOTE | 2025-03-21 13:36 | ECG_ITS ---
Test Reason : ABD PAIN Blood Pressure : */* mmHG Vent. Rate : 87 BPM Atrial Rate : 87 BPM P-R Int : 144 ms QRS Dur : 56 ms QT Int : 350 ms P-R-T Axes : -26 0 8 degrees QTcB Int : 421 ms Poor data quality Sinus rhythm with Premature supraventricular complexes Nonspecific ST abnormality Abnormal ECG When compared to the previous EKG of Normal sinus rhythm has replaced Atrial fibrillation with rapid ventricular response Referred By: Renate Osorio Electronically Signed By: ESTEPHANIE CLAIRE MD
--- NOTE | 2025-03-21 13:36 | ECG_ITS ---
Test Reason : RHYTHM Blood Pressure : */* mmHG Vent. Rate : 143 BPM Atrial Rate : * BPM P-R Int : * ms QRS Dur : 92 ms QT Int : 246 ms P-R-T Axes : * 73 265 degrees QTcB Int : 379 ms Atrial fibrillation with rapid ventricular response with premature ventricular or aberrantly conducted complexes ST & T wave abnormality, consider inferolateral ischemia Abnormal ECG When compared to the previous EKG of Atrial fibrillation with rapid ventricular response has replaced Normal sinus rhythm Referred By: Renate Osorio Electronically Signed By: ESTEPHANIE CLAIRE MD
[2025-03-21] MEDS: Metoprolol Tartrate 5 MG/5 ML VIAL IVPUSH ×2 (13:42→14:33)
--- NOTE | 2025-03-21 13:49 | PC.NURSE ---
Pt returned from CT scan and placed on monitor per orders; pt in a rapid AFIB 140's; pt denies symptoms at this time; bp 123/73; pt seen by provider and pt medicated per orders; will cont to monitor/tx per orders
[2025-03-21] MEDS: Metoprolol Succinate ER 25 MG TAB.ER.24H PO (14:32)
--- NOTE | 2025-03-21 15:17 | ECG_ITS ---
Test Reason : REPEAT Blood Pressure : */* mmHG Vent. Rate : 121 BPM Atrial Rate : * BPM P-R Int : * ms QRS Dur : 88 ms QT Int : 314 ms P-R-T Axes : * 73 62 degrees QTcB Int : 445 ms Atrial fibrillation with rapid ventricular response with premature ventricular or aberrantly conducted complexes Nonspecific T wave abnormality Abnormal ECG When compared with ECG of 21-Mar-2025 14:53, Atrial fibrillation has replaced Sinus rhythm Referred By: Renate Osorio Electronically Signed By: QUEENIE DEL TORO
--- NOTE | 2025-03-21 15:34 | PC.NURSE ---
Noted: an EKG performed at [facility] 1420 on another pt by an non morse intercept technician uploaded on this pt's name and information, despite tech scanning and confirming pt info at the bedside; provider made aware and a repeat EKG performed on this pt for accuracy; pt remains in rapid afib with RVR; pt remains asymptomatic
--- NOTE | 2025-03-21 15:34 | PC.NURSE ---
an EKG was done at 1453 on another pt and somehow it got recorded under Ash's name and account, Provider, RN, tech and RN Print Production Associate all aware
[2025-03-21] MEDS: dilTIAZem HCL 125 MG in 0.9 % Sodium Chloride 100 ML 10 MG IVCONT (15:51)
--- NOTE | 2025-03-21 16:12 | PM.IMHP ---
History of Present Illness Date of Service: 03/21/25 Chief Complaint: right sided chest pain 59M PMH lone afib several years ago from etoh, anxiety, hld, presented with right sided chest pain. Chest pain began 5 days prior to presentation. At 1st felt it was similar to reflux but a little bit different and that it radiates to his back. Denies any shortness of breath or palpitations. Denies any fever or chills. Denies alcohol use. Has had moderate caffeine intake. In ED CTA of the chest was negative for pulmonary embolism, troponin negative, initial EKG normal sinus rhythm at 90 with sinus arrhythmia. Patient then converted to AFib with rapid ventricular response. Review of Systems Review of Systems: Yes all other systems are reviewed and are negative [facility] Medical History (Updated 03/21/25 @ 16:15 by Jacob Petersen MD) Afib Social History Smoked in Last 30 Days: No Use of substances other than those prescribed or required for medical reasons: No Advance Directives: No Advance Directives Information Provided: No Do you have a plan to hurt others: No Plan Meds Allergies Allergy/AdvReac Type Severity Reaction Status Date / Time No Known Allergies Allergy Verified 03/21/25 11:27 Active Medications: Current Medications Acetaminophen (Acetaminophen 325 Mg Tablet) 650 mg PO Q6H PRN PRN Reason: Pain, Mild 1-3,fever,headache Calcium Carbonate (Calcium Carbonate 750 Mg Tab.Chew) 750 mg PO Q4H PRN PRN Reason: Heartburn Diltiazem HCl 125 mg/ Sodium (Chloride) 125 mls @ 0 mls/hr IVCONT .Q0M [facility]; Protocol Last Admin: 03/21/25 15:51 Dose: 10 mg/hr, 10 mls/hr Magnesium Hydroxide (Milk Of Magnesia 30 Ml Oral.Susp) 30 ml PO DAILY PRN PRN Reason: Constipation Melatonin (Melatonin 3 Mg Tablet) 6 mg PO BEDTIME PRN PRN Reason: Insomnia Sodium Chloride (0.9 % Sodium Chloride Flush 3 Ml Syringe) 3 [facility] Home Medications ?Medication ?Instructions ?Recorded ?Confirmed ?Last Taken ?Type acetaminophen 500 mg tablet 500 mg PO Q6H PRN Pain 03/21/25 03/21/25 Unknown History ibuprofen 200 mg tablet 400 mg PO Q8H PRN Pain 03/21/25 03/21/25 Unknown History lorazepam 0.5 mg tablet 0.5 mg PO DAILY PRN Anxiety 03/21/25 03/21/25 03/21/25 History meloxicam 7.5 mg tablet 7.5 mg PO DAILY PRN Pain 03/21/25 03/21/25 Unknown History multivitamin 1 tab PO DAILY 03/21/25 03/21/25 Unknown History simvastatin 10 mg tablet 10 mg PO BEDTIME 03/21/25 03/21/25 Unknown History Physical Exam Vital Signs and Narrative: Vital Signs: Last Vital Signs Temp 97.9 F 03/21/25 16:09 Pulse 120 H 03/21/25 16:09 Resp 14 03/21/25 16:09 BP 128/67 03/21/25 16:09 Pulse Ox 98 03/21/25 16:09 O2 Del Method Room Air 03/21/25 16:09 O2 Flow Rate 99 03/21/25 14:00 BMI result Body Mass Index 27.2 General: AO X 3, no acute distress Resp: CTA bilateral, no accessory muscles used CVS: S1,S2,Rapid irregular GI: soft, non tender, non distended Neuro: motor grossly intact, alert Psych: appropriate affect, appropriate insight Results Labs 03/21/25 11:21 03/21/25 11:21 Labs: Laboratory Results - last 24 hr 03/21/25 03/21/25 11:21 12:18 MCV 84.8 MCH 29.7 MCHC 35.0 RDW 12.9 Plt Count 236 MPV 10.1 Immature Gran % (Auto) 0.2 Neut % (Auto) 60.0 Lymph % (Auto) 27.0 [place] % (Auto) 9.5 Eos % (Auto) 2.4 Baso % (Auto) 0.9 Lymph # (Auto) 1.5 [place] # (Auto) 0.5 Eos # (Auto) 0.1 Baso # (Auto) 0.1 Abs Immat Gran (auto) 0.01 Absolute Neuts (auto) 3.3 Absolute Nucleated RBC 0.000 Nucleated RBC % (auto) 0.0 Anion Gap 12 Estim Creat Clear Calc 91.6 Estimated GFR > 60 Random Glucose 94 Calcium 9.3 Total Bilirubin 0.7 AST 27 ALT 36 Alkaline Phosphatase 66 Total Protein 7.3 Albumin 4.4 Urine Color Yellow Urine Appearance Clear Urine pH 8.0 Ur Specific [place] <= 1.005 Urine Protein Negative Urine Glucose (UA) Negative Urine Ketones Negative Urine Blood Negative Urine Nitrite Negative Ur Leukocyte Esterase Negative Urine RBC 0-2 Urine WBC 0-5 Ur Squamous Epith Cells 0-2 Urine Bacteria None Seen Hyaline Casts 0-2 Assessment and Plan (1) Afib: Status: Acute Plan 59M PMH lone afib several years ago from etoh, anxiety, hld, presented with right sided chest pain in ED converted to AFib with RVR Recurrent AFib with rapid ventricular response IV Cardizem infusion, echo, cardio eval Troponin negative, TSH and magnesium pending Repeat troponin Monitored on telemetry Chads 0 but may need cardioversion so will start apixaban Hyperlipidemia Continue statin Anxiety Ativan as needed DVT prophylaxis-on apixaban Full code Given need for IV infusion for AFib with rapid ventricular response and possible cardioversion expected require at least 2 midnights inpatient Quality Stroke Does the patient have a stroke diagnosis?: No VTE Prior VTE?: No VTE Risk Level:: Medical - moderate - high VTE Device Contraindication: Treatment Not Indicated VTE Drug Contraindication: N/A - Med Ordered
--- NOTE | 2025-03-21 16:19 | PHA.MEDREC ---
Addendum entered by Meme Sr RPh 03/21/25 16:31: reviewed by [facility]. Original Note: Pharmacy Consult ? Medication Reconciliation Pharmacy has completed the medication reconciliation. Spoke with patient to confirm medications. He is no longer taking tamsulosin or oxycodone. He uses ativan once daily prn, last taken today. Meloxicam he takes prn as well.
[2025-03-21 16:28] LABS: Magnesium 2.1 mg/dL (1.6-2.6)
[2025-03-21 16:42] LABS: Thyroid Stimulating Hormone 0.66 uIU/mL (0.32-4.0)
[2025-03-21 17:03] LABS: Troponin-I High Sensitivity < 2.7 ng/L (<3.5-35.0)
[2025-03-21] MEDS: Apixaban 5 MG TABLET PO (20:40)
[2025-03-21] MEDS: Calcium Carbonate 750 MG TAB.CHEW PO (20:40)
[2025-03-21] MEDS: LORazepam 0.5 MG TABLET PO (20:43)
--- NOTE | 2025-03-21 23:15 | PC.NURSE ---
Cardizem drip shut off
[2025-03-22] VITALS (12 sets, daily range): BP systolic 100–140; BP diastolic 57–83; PULSE 80–143; RESP 18–20; TEMP 35.9–36.7; O2SAT 96–99
[2025-03-22] MEDS: Apixaban 5 MG TABLET PO ×2 (08:24→20:30)
--- NOTE | 2025-03-22 08:33 | HO.PM.IMPN ---
Subjective Subjective Date of Service: 03/22/25 Interval History: no complaints, still tachy Physical Exam Vital Signs: Vital Signs: Last Vital Signs Temp 97.3 F 03/22/25 07:08 Pulse 129 H 03/22/25 07:08 Resp 18 03/22/25 07:08 BP 104/70 03/22/25 07:58 Pulse Ox 98 03/22/25 07:08 O2 Del Method Room Air 03/22/25 07:08 O2 Flow Rate 99 03/21/25 14:00 BMI result Body Mass Index 27.2 General: AO X 3, no acute distress Resp: CTA bilateral, no accessory muscles used CVS: S1,S2,Rapid irregular GI: soft, non tender, non distended Neuro: motor grossly intact, alert Psych: appropriate affect, appropriate insight Objective Data Active Medications Acetaminophen (Acetaminophen 325 Mg Tablet) 650 mg PO Q6H PRN PRN Reason: Pain, Mild 1-3,fever,headache Apixaban (Apixaban 5 Mg Tablet) 5 mg PO BID [facility] Last Admin: 03/22/25 08:24 Dose: 5 mg Documented By: NATIVIDAD Atorvastatin Calcium (Atorvastatin Calcium 10 Mg Tablet) 10 mg PO BEDTIME [facility] Last Admin: 03/21/25 20:39 Dose: Not Given Documented By: JAMAR Non-Admin Reason: Patient Refused Comments: pt states he took this in the AM Calcium Carbonate (Calcium Carbonate 750 Mg Tab.Chew) 750 mg PO Q4H PRN PRN Reason: Heartburn Last Admin: 03/21/25 20:40 Dose: 750 mg Documented By: JAMAR Diltiazem HCl 125 mg/ Sodium (Chloride) 125 mls @ 0 mls/hr IVCONT .Q0M [facility]; Protocol Last Titration: 03/22/25 07:57 Dose: 5 mg/hr, 5 mls/hr Documented By: NATIVIDAD Lorazepam (Lorazepam 0.5 Mg Tablet) 0.5 mg PO Q8H PRN PRN Reason: Anxiety Last Admin: 03/21/25 20:43 Dose: 0.5 mg Documented By: JAMAR Magnesium Hydroxide (Milk Of Magnesia 30 Ml Oral.Susp) 30 ml PO DAILY PRN PRN Reason: Constipation Melatonin (Melatonin 3 Mg Tablet) 6 mg PO BEDTIME PRN PRN Reason: Insomnia Sodium Chloride (0.9 % Sodium Chloride Flush 3 Ml Syringe) 3 ml IVFLUSH QSHIFT [facility] Last Admin: 03/22/25 08:22 Dose: Not Given Documented By: NATIVIDAD Non-Admin Reason: IV Running Labs 03/21/25 11:21 03/21/25 11:21 Labs: Laboratory Results - last 24 hr 03/21/25 03/21/25 11:21 12:18 MCV 84.8 MCH 29.7 MCHC 35.0 RDW 12.9 Plt Count 236 MPV 10.1 Immature Gran % (Auto) 0.2 Neut % (Auto) 60.0 Lymph % (Auto) 27.0 [place] % (Auto) 9.5 Eos % (Auto) 2.4 Baso % (Auto) 0.9 Lymph # (Auto) 1.5 [place] # (Auto) 0.5 Eos # (Auto) 0.1 Baso # (Auto) 0.1 Abs Immat Gran (auto) 0.01 Absolute Neuts (auto) 3.3 Absolute Nucleated RBC 0.000 Nucleated RBC % (auto) 0.0 Anion Gap 12 Estim Creat Clear Calc 91.6 Estimated GFR > 60 Random Glucose 94 Calcium 9.3 Magnesium 2.1 Total Bilirubin 0.7 AST 27 ALT 36 Alkaline Phosphatase 66 Total Protein 7.3 Albumin 4.4 TSH 0.66 Urine Color Yellow Urine Appearance Clear Urine pH 8.0 Ur Specific [place] <= 1.005 Urine Protein Negative Urine Glucose (UA) Negative Urine Ketones Negative Urine Blood Negative Urine Nitrite Negative Ur Leukocyte Esterase Negative Urine RBC 0-2 Urine WBC 0-5 Ur Squamous Epith Cells 0-2 Urine Bacteria None Seen Hyaline Casts 0-2 Assessment and Plan (1) Atrial fibrillation with RVR: Status: Acute Plan 59M PMH lone afib several years ago from etoh, anxiety, hld, presented with right sided chest pain in ED converted to AFib with RVR Recurrent AFib with rapid ventricular response IV Cardizem infusion, echo, cardio eval Monitored on telemetry Chads 0 but may need cardioversion so started apixaban Hyperlipidemia Continue statin Anxiety Ativan as needed DVT prophylaxis-on apixaban Full code reason for continued hospitalization:rvr Quality Stroke Does the patient have a stroke diagnosis?: No VTE Prior VTE?: No VTE Risk Level:: Medical - moderate - high VTE Device Contraindication: Treatment Not Indicated VTE Drug Contraindication: N/A - Med Ordered
[2025-03-22] MEDS: Flecainide Acetate 50 MG TABLET 300 MG PO (09:43)
--- NOTE | 2025-03-22 10:23 | MHC.CM.PN ---
Pt self-care, lives at home with his who will transport him home at discharge. Education provided on HCP, he states he needs to speak with his about it first. PCP: Tyrell WADDELL
--- NOTE | 2025-03-22 10:35 | PM.CNCAR ---
History of Present Illness History of Present Illness Date of Service: 03/22/25 Chief complaint: Afib w/RVR Narrative: This is a cardiology consultation regarding atrial fibrillation. Patient states that he had atrial fibrillation about 8 years ago context of alcohol use but nothing since that time. He has had occasional palpitations but nothing bothersome or persistent and did not seek medical attention for those episodes. No other complaints like chest pain or shortness of breath or anything else of cardiac nature. He states he was extremely active in a physical job till a few months ago. 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 Current admissions because of right-sided chest pain and right-sided back pain. Uncertain etiology. Nonexertional and in fact he [place] a lot in the [place] without any issues. No other complaints like shortness of breath or palpitations. When he came to the ER he was in sinus rhythm. Subsequently, it seems that EKG showed atrial fibrillation rapid rate. Then the follow-up EKG after that showed that he was back in sinus rhythm. Then he went back into atrial fibrillation. However, patient himself is not feeling any of those episodes. He has been put on a Cardizem drip and he is admitted. He is still in atrial fibrillation with slightly rapid rate. Review of Systems Review of Systems: Yes all other systems are reviewed and are negative Constitutional: Constitutional: Reports as per HPI and Reports no additional constitutional complaints Eyes: Eyes: Reports as per HPI and Denies no additional eye complaints ENT: Denies system reviewed and no additional complaints, except as documented and Reports as per HPI Cardiovascular: Cardiovascular: Reports as per HPI, Reports no additional cardiovascular complaints, Denies acrocyanosis, Denies cool extremities, Reports chest pain, Denies leg edema, Denies lightheadedness, Denies palpitations and Denies dyspnea Respiratory: Respiratory: Reports as per HPI, Denies no additional respiratory complaints and Denies dyspnea Gastrointestinal: Gastrointestinal: Reports as per HPI and Denies no additional gastrointestinal complaints Genitourinary: Genitourinary: Reports no additional male genitourinary complaints and Reports as per HPI Musculoskeletal: Musculoskeletal: Reports no additional musculoskeletal complaints and Reports as per HPI Integumentary/Breasts: Skin/Breast: Reports system reviewed and no additional complaints, except as docu Neurologic: Reports system reviewed and no additional complaints, except as documented and Reports as per HPI Psychiatric: Psychiatric: Reports no additional psychiatric complaints and Reports as per HPI Endocrine: Endocrine: Reports no additional endocrine complaints, Reports as per HPI and Denies palpitations Hematologic/Lymphatic: Hematologic/Lymphatic: Reports no additional hematologic/lymphatic complaints and Reports as per HPI Allergic/Immunologic: Allergic/Immunologic: Reports no additional allergic/immunologic complaints and Reports as per HPI [facility] Past Medical History Medical History (Updated 03/21/25 @ 16:32 by NADIRA Katz) Afib Family History Family History (Updated 03/22/25 @ 10:37 by Rishi Johnson MD) Father Hx of heart surgery Social History Social History Household Members: Family Housing: House Do you presently have visiting nurse or other home services: No Patient Tobacco Use Status: Never used Tobacco Smoked in Last 30 Days: No Use of substances other than those prescribed or required for medical reasons: No Currently Displaying Signs/Symptoms of Drug Intoxication Withdrawal: No Have you been hit, kicked, punched, or otherwise hurt by someone within the past year? If so, by whom?: No Advance Directives: No Advance Directives Information Provided: No Do you have a plan to hurt others: No Plan Recently lost weight without trying: No Nutrition Risks: No Nutritional Risk Poor oral hygiene: No service: No Meds Allergies Allergy/AdvReac Type Severity Reaction Status Date / Time No Known Allergies Allergy Verified 03/21/25 11:27 Active Medications: Current Medications Acetaminophen (Acetaminophen 325 Mg Tablet) 650 mg PO Q6H PRN PRN Reason: Pain, Mild 1-3,fever,headache Apixaban (Apixaban 5 Mg Tablet) 5 mg PO BID [facility] Last Admin: 03/22/25 08:24 Dose: 5 mg Atorvastatin Calcium (Atorvastatin Calcium 10 Mg Tablet) 10 mg PO BEDTIME [facility] Last Admin: 03/21/25 20:39 Dose: Not Given Calcium Carbonate (Calcium Carbonate 750 Mg Tab.Chew) 750 mg PO Q4H PRN PRN Reason: Heartburn Last Admin: 03/21/25 20:40 Dose: 750 mg Diltiazem HCl 125 mg/ Sodium (Chloride) 125 mls @ 0 mls/hr IVCONT .Q0M [facility]; Protocol Last Titration: 03/22/25 10:33 Dose: 5 mg/hr, 5 mls/hr Lorazepam (Lorazepam 0.5 Mg Tablet) 0.5 mg PO Q8H PRN PRN Reason: Anxiety Last Admin: 03/21/25 20:43 Dose: 0.5 mg Magnesium Hydroxide (Milk Of Magnesia 30 Ml Oral.Susp) 30 ml PO DAILY PRN PRN Reason: Constipation Melatonin (Melatonin 3 Mg Tablet) 6 mg PO BEDTIME PRN PRN Reason: Insomnia Sodium Chloride (0.9 % Sodium Chloride Flush 3 Ml Syringe) 3 ml IVFLUSH QSHIFT [facility] Last Admin: 03/22/25 08:22 Dose: Not Given Home Medications ?Medication ?Instructions ?Recorded ?Confirmed ?Last Taken ?Type acetaminophen 500 mg tablet 500 mg PO Q6H PRN Pain 03/21/25 03/21/25 Unknown History ibuprofen 200 mg tablet 400 mg PO Q8H PRN Pain 03/21/25 03/21/25 Unknown History lorazepam 0.5 mg tablet 0.5 mg PO DAILY PRN Anxiety 03/21/25 03/21/25 03/21/25 History meloxicam 7.5 mg tablet 7.5 mg PO DAILY PRN Pain 03/21/25 03/21/25 Unknown History multivitamin 1 tab PO DAILY 03/21/25 03/21/25 Unknown History simvastatin 10 mg tablet 10 mg PO BEDTIME 03/21/25 03/21/25 Unknown History Physical Exam Vital Signs: Vital Signs: Last Vital Signs Temp 97.3 F 03/22/25 07:08 Pulse 91 03/22/25 10:33 Resp 18 03/22/25 07:08 BP 113/80 03/22/25 09:08 Pulse Ox 98 03/22/25 07:08 O2 Del Method Room Air 03/22/25 07:08 O2 Flow Rate 99 03/21/25 14:00 BMI result Body Mass Index 27.2 Const: General: comfortable and no acute distress Orientation/consciousness: patient oriented x3 HEENT: Other: Unremarkable Head: Yes normal to inspection Neck: Neck: Yes normal visual inspection Chest: Chest palpation & inspection: normal inspection of the chest Resp: Auscultation: clear to auscultation bilaterally Cardio: Palpation: normal PMI Heart sounds: S1 normal heart sound present, S2 normal heart sound present, no gallops, no murmurs and no rubs GI: Palpation (GI): Soft to palpation Back/Spine/Pelvis: Other: unremarkable Skin: General skin exam: no rashes or lesions noted Neuro: General: patient oriented x3 Extrem: General: Yes normal to inspection Psych: Mental Status: mental status grossly normal Objective Labs and Meds 03/21/25 11:21 03/21/25 11:21 Lab results: Laboratory Results - last 24 hr 03/21/25 03/21/25 03/21/25 11:21 12:18 16:37 WBC 5.5 RBC 4.95 Hgb 14.7 Hct 42.0 MCV 84.8 MCH 29.7 MCHC 35.0 RDW 12.9 Plt Count 236 MPV 10.1 Immature Gran % (Auto) 0.2 Neut % (Auto) 60.0 Lymph % (Auto) 27.0 [place] % (Auto) 9.5 Eos % (Auto) 2.4 Baso % (Auto) 0.9 Lymph # (Auto) 1.5 [place] # (Auto) 0.5 Eos # (Auto) 0.1 Baso # (Auto) 0.1 Abs Immat Gran (auto) 0.01 Absolute Neuts (auto) 3.3 Absolute Nucleated RBC 0.000 Nucleated RBC % (auto) 0.0 Sodium 142 Potassium 4.0 Chloride 107 Carbon Dioxide 27 Anion Gap 12 BUN 12 Creatinine 0.85 Estim Creat Clear Calc 91.6 Estimated GFR > 60 Random Glucose 94 Calcium 9.3 Magnesium 2.1 Total Bilirubin 0.7 AST 27 ALT 36 Alkaline Phosphatase 66 Troponin I High Sens < 2.7 < 2.7 Total Protein 7.3 Albumin 4.4 TSH 0.66 Urine Color Yellow Urine Appearance Clear Urine pH 8.0 Ur Specific [place] <= 1.005 Urine Protein Negative Urine Glucose (UA) Negative Urine Ketones Negative Urine Blood Negative Urine Nitrite Negative Ur Leukocyte Esterase Negative Urine RBC 0-2 Urine WBC 0-5 Ur Squamous Epith Cells 0-2 Urine Bacteria None Seen Hyaline Casts 0-2 ECG Interpretation: Initial EKG upon admission shows sinus rhythm at a rate of 90/Min. Second EKG shows atrial fibrillation at a rate of 143/Min with inferolateral ST-T changes. Third EKGs shows sinus rhythm at 87/Min. 4th EKG shows atrial fibrillation with rapid rate at 121/Min. PVC. Assessment and Plan (1) Atrial fibrillation with RVR: Status: Acute Clinically asymptomatic. Has been in and out of atrial fibrillation. However, persistent overnight. Continue Cardizem drip. Try flecainide 300 mg p.o.. Anticoagulation. If he does not convert by tomorrow may need cardioversion, possibly with SUKHDEEP guidance. NPO past midnight. (2) Chest pain: Status: Acute Right-sided chest pain which is very atypical and nonexertional. Most likely noncardiac. Unremarkable troponins. Plan Discussed with significant other at the bedside. They are in agreement with the plan. Discussed with . Procedures Date of Service Date of Service: 03/22/25
[2025-03-22] MEDS: Omeprazole 40 MG CAPSULE.DR PO (12:32)
[2025-03-22] MEDS: Atorvastatin Calcium 10 MG TABLET PO (20:30)
[2025-03-22] MEDS: LORazepam 0.5 MG TABLET PO (20:30)
[2025-03-22] MEDS: 0.9 % Sodium Chloride Flush 3 ML SYRINGE IVFLUSH (20:31)
[2025-03-23 04:00] VITALS: BP 121/62; PULSE 81; RESP 20; TEMP 36.4; O2SAT 97
[2025-03-23 04:38] VITALS: BP 121/62; PULSE 100; RESP 20; TEMP 36.4; O2SAT 97
[2025-03-23] MEDS: Omeprazole 40 MG CAPSULE.DR PO (05:52)
[2025-03-23 06:52] LABS: Hematocrit 41.2 % (42.0-52.0); Hemoglobin 14.1 g/dl (14.0-18.0); Mean Corpuscular HGB Conc 34.2 g/dl (31.0-36.0); Mean Corpuscular Hemoglobin 29.5 pg (27.0-33.0); Mean Corpuscular Volume 86.2 fL (80.0-98.0); Mean Platelet Volume 10.6 fL (9.4-12.4); Platelet Count 224 X10*3/uL (160-400); Red Blood Count 4.78 X10*6/uL (4.60-5.80); Red Cell Distribution Width 12.9 % (11.0-16.0); White Blood Count 7.7 X10*3/uL (4.8-10.8)
[2025-03-23 06:58] LABS: Anion Gap 13 (12-20); Blood Urea Nitrogen 14 mg/dL (9-16); Calcium 8.6 mg/dL (8.4-10.2); Carbon Dioxide 25 mmol/L (22-29); Chloride 106 mmol/L (96-108); Creatinine Clr Calc Pharmacy 105.2; Estimated Glomerular Filt Rate > 60; Glucose Random 111 mg/dL (60-115); Potassium 3.9 mmol/L (3.3-5.1); Sodium 140 mmol/L (135-145)
[2025-03-23 07:24] VITALS: BP 145/72; PULSE 83; RESP 16; TEMP 36.6; O2SAT 100
--- NOTE | 2025-03-23 09:04 | P.DS_ITS ---
DS: Providers Provider Date of Service: 03/23/25 Date of admission: 03/21/25 15:57 Date of discharge: 03/23/25 Primary care physician: NADIRA Lisa Consults: 03/21/25 16:12 Consult to Cardiology Routine Consulting Provider: [facility] Reason for consultation: afib Has provider been notified: Yes DS: Diagnosis Discharge Diagnosis (1) Atrial fibrillation with RVR: Status: Acute (2) Chest pain: Status: Acute DS: Summary Hospital Course Hospital Course: from initial hpi: 59M PMH lone afib several years ago from etoh, anxiety, hld, presented with right sided chest pain. Chest pain began 5 days prior to presentation. At 1st felt it was similar to reflux but a little bit different and that it radiates to his back. Denies any shortness of breath or palpitations. Denies any fever or chills. Denies alcohol use. Has had moderate caffeine intake. In ED CTA of the chest was negative for pulmonary embolism, troponin negative, initial EKG normal sinus rhythm at 90 with sinus arrhythmia. Patient then converted to AFib with rapid ventricular response. hospital course: Patient was admitted for recurrent AFib with rapid ventricular response. Was initially put on IV Cardizem was then given flecainide and cardioverted started on apixaban. Seen by Cardiology, plan to follow up outpaitent for echo and stress test, On discharge we will continue apixaban, flecainide, diltiazem. For hyperlipidemia continued on statin. For anxiety continued on Ativan. Patient is feeling better will be discharged home. Time Attestation Discharge Coordination Time (in mins): 31 Quality: Safe Use of Opioids Does Pt have an Active Cancer Diagnosis on the Problem List?: No Quality: Stroke Does the patient have a stroke diagnosis?: No Physical Exam Vital Signs: Vital Signs: Last Vital Signs Temp 97.9 F 03/23/25 07:24 Pulse 83 03/23/25 07:24 Resp 16 03/23/25 07:24 BP 145/72 H 03/23/25 07:24 Pulse Ox 100 03/23/25 07:24 O2 Del Method Room Air 03/23/25 07:24 O2 Flow Rate 99 03/21/25 14:00 BMI result Body Mass Index 27.2 General: AO X 3, no acute distress Resp: CTA bilateral, no accessory muscles used CVS: S1,S2,RRR GI: soft, non tender, non distended Neuro: motor grossly intact, alert Psych: appropriate affect, appropriate insight DS: Data Data Completed and Pending Labs on day of discharge: Laboratory Results - last 24 hr 03/23/25 05:51 WBC 7.7 RBC 4.78 Hgb 14.1 Hct 41.2 L MCV 86.2 MCH 29.5 MCHC 34.2 RDW 12.9 Plt Count 224 MPV 10.6 Absolute Nucleated RBC 0.000 Nucleated RBC % (auto) 0.0 Sodium 140 Potassium 3.9 Chloride 106 Carbon Dioxide 25 Anion Gap 13 BUN 14 Creatinine 0.74 Estim Creat Clear Calc 105.2 Estimated GFR > 60 Random Glucose 111 Calcium 8.6 D Discharge Plan Discharge Anticipated Discharge Date/Time: 03/23/25 09:02 Patient Disposition: Home, Self-Care Discharge Diagnosis: afib Referrals: Tyrell Amezquita PA [Primary Care Provider] - 1 Week Discharge Medications: New Eliquis 5 mg Tablet 5 mg PO BID Qty: 180 0RF diltiazem HCl [Cardizem CD] 120 mg Capsule,Extended Release 24hr 120 mg PO DAILY Qty: 90 0RF Protocol: Hold for SBP/HR < HOLD for SBP < : 90 HOLD for HR < : 60 flecainide 50 mg Tablet 50 mg PO BID Qty: 180 0RF Continued multivitamin Tablet 1 tab PO DAILY simvastatin 10 mg tablet 10 mg PO BEDTIME acetaminophen 500 mg Tablet 500 mg PO Q6H PRN (Reason: Pain) meloxicam 7.5 mg tablet 7.5 mg PO DAILY PRN (Reason: Pain) lorazepam 0.5 mg tablet 0.5 mg PO DAILY PRN (Reason: Anxiety) ibuprofen 200 mg Tablet 400 mg PO Q8H PRN (Reason: Pain) Discharge Orders: Discharge Order (Routine); Ordered 03/23/25 Ordered By: Jacob Petersen Diet: Advance to usual diet Activity on Discharge: As tolerated Stand Alone Forms: Patient Portal Discharge page Print Language: Upper Sorbian Other Ambulatory Orders: [place] echo transthoracic complete (Routine) Timeframe: 1 Day Facility: [facility] - Location: Cardiology Ordered By: Jacob Petersen Care Plan Goals: manage afib Health Concerns: afib Plan of Treatment: meds as prescribed, follow up with cardiology, echo Assessment: see above
[2025-03-23] MEDS: Flecainide Acetate 50 MG TABLET PO (09:11)
[2025-03-23] MEDS: 0.9 % Sodium Chloride Flush 3 ML SYRINGE IVFLUSH (09:11)
[2025-03-23 09:12] VITALS: BP 145/72; PULSE 83
[2025-03-23] MEDS: Apixaban 5 MG TABLET PO (09:12)
[2025-03-23] MEDS: dilTIAZem HCL CD 120 MG CAP.ER.DEG PO (09:12)
[2025-03-23 11:04] VITALS: BP 128/74; PULSE 90; RESP 16; TEMP 36.2; O2SAT 100
--- NOTE | 2025-03-23 11:33 | MHC.CM.PN ---
Patient has been medically cleared for dc to home today, self care.
--- NOTE | 2025-03-23 12:03 | PM.PNCARD ---
Subjective Subjective Date of Service: 03/23/25 Principal diagnosis: Paroxysmal atrial fibrillation Interval history: Patient feeling a lot better today. Remains in sinus rhythm. Hemodynamically stable. Blood pressure was slightly elevated but right now has come back to normal. Started on flecainide and Cardizem on Eliquis. He told me that he had a home sleep study in the past which was inconclusive. He is thinking that he has lost symptoms suggestive of sleep apnea. Review of Systems Constitutional: Reports no additional constitutional complaints Physical Exam Vital Signs: Last Vital Signs Temp 97.1 F 03/23/25 11:04 Pulse 90 03/23/25 11:04 Resp 16 03/23/25 11:04 BP 128/74 03/23/25 11:04 Pulse Ox 100 03/23/25 11:04 O2 Del Method Room Air 03/23/25 11:04 O2 Flow Rate 99 03/21/25 14:00 BMI result Body Mass Index 27.2 Const General: cooperative, comfortable, no acute distress, well developed, alert and awake Nutritional Appearance: overweight Orientation/consciousness: patient oriented x3 Neck Neck: Yes trachea midline, Yes supple and Yes no JVD Resp Effort & Inspection: normal respiratory effort Auscultation: clear to auscultation bilaterally Cardio Jugular venous distension: no JVD Rate: regular rate Rhythm: regular rhythm Heart sounds: S1 normal heart sound present, S2 normal heart sound present, no click, no gallops, no murmurs and no rubs GI Auscultation: normal bowel sounds Skin General skin exam: no rashes or lesions noted Neuro General: patient oriented x3 and no focal motor deficits Extrem General: Yes no clubbing, cyanosis or edema Objective Labs and Meds 03/23/25 05:51 03/23/25 05:51 Lab results: Laboratory Results - last 24 hr 03/23/25 05:51 WBC 7.7 RBC 4.78 Hgb 14.1 Hct 41.2 L MCV 86.2 MCH 29.5 MCHC 34.2 RDW 12.9 Plt Count 224 MPV 10.6 Absolute Nucleated RBC 0.000 Nucleated RBC % (auto) 0.0 Sodium 140 Potassium 3.9 Chloride 106 Carbon Dioxide 25 Anion Gap 13 BUN 14 Creatinine 0.74 Estim Creat Clear Calc 105.2 Estimated GFR > 60 Random Glucose 111 Calcium 8.6 D Progress Note: A&P Assessment and plan (1) Paroxysmal atrial fibrillation: Status: Acute Assessment and Plan: Highly symptomatic paroxysmal atrial fibrillation this middle-aged man with high likelihood of underlying obstructive sleep apnea. Currently feeling very well. I would continue with Cardizem as well as currently planned dose of flecainide as well as Eliquis. Eliquis will be for totally for a month. I would perform outpatient workup with echo, stress test as well as in house sleep study to assess for breath in his sleep apnea. Management was discussed in details. Patient can be discharged home and will set up for follow-up as outpatient. Will follow up in the clinic in 1 month's time. Thank you for allowing me to partake in his care Time Spent With Patient Time: Total time managing care of this patient today ____ minutes. Progress Note: Quality Stroke Does the patient have a stroke diagnosis?: No Procedures Date of Service Date of Service: 03/23/25
== END 2025-03-23 13:03 | disposition home or self-care (01) | DRG 201 ==
LOC: HO.ED 15:10 → HO.EDOVER 16:25 → HO.IMC 17:26
PROVIDERS: Physician Assistant Medical; Admitting Provider Hospitalist; Emergency Provider Emergency Medicine; PCP Physician Assistant Medical; Visit Provider Internal Medicine
DX: I48.0 Paroxysmal atrial fibrillation (principal); E78.5 Hyperlipidemia, unspecified; R07.9 Chest pain, unspecified; G47.33 Obstructive sleep apnea (adult) (pediatric); F41.9 Anxiety disorder, unspecified; K21.9 Gastro-esophageal reflux disease without esophagitis; Z79.899 Other long term (current) drug therapy
CPT/HCPCS: 36415; 71275; 74177; 80048; 80053; 81001; 83735; 84443; 84484; 85025; 85027; 93005; 99285; J3360; Q9957

== ENCOUNTER → 2025-03-21 11:35 | Outpatient (BNV) | payer BC, SELFPAY | PROVIDERS: Emergency Provider Emergency Medicine; PCP Physician Assistant Medical; Visit Provider Internal Medicine | DX: I48.91 Unspecified atrial fibrillation (principal) | CPT/HCPCS: 99223; 99239 ==

== ENCOUNTER → 2025-03-21 12:32 | Outpatient (BNV) | payer BC, SELFPAY | PROVIDERS: PCP Physician Assistant Medical; Visit Provider Radiology Diagnostic Radiology | DX: R07.9 Chest pain, unspecified (principal); R10.11 Right upper quadrant pain | CPT/HCPCS: 71275; 74177 ==

== ENCOUNTER → 2025-03-21 15:57 | Outpatient (BNV) | payer BC, SELFPAY | PROVIDERS: Admitting Provider Hospitalist; Emergency Provider Emergency Medicine; PCP Physician Assistant Medical; Visit Provider Internal Medicine | DX: I48.0 Paroxysmal atrial fibrillation (principal); I47.10 Supraventricular tachycardia, unspecified; R94.31 Abnormal electrocardiogram [ECG] [EKG] | CPT/HCPCS: 93010; 99232 ==

== ENCOUNTER → 2025-04-15 09:42 | Outpatient (BNVA) | payer BC, SELFPAY | PROVIDERS: PCP Physician Assistant Medical; Visit Provider Internal Medicine ==

== ENCOUNTER 2025-05-04 13:48 | Outpatient (AMB) | payer BC, SELFPAY ==
[2025-05-04 14:01] VITALS: BP 110/70; PULSE 66; BMI 27.1
--- NOTE | 2025-05-04 14:01 | MHC.OFFVIS ---
Vital Signs 05/04/25 14:01 Height 5 ft 8 in Weight 178 lb 9.191 oz BMI 27.1 BP 110/70 Blood Pressure Location Lt brachial Position Sitting Pulse 66 Intake Visit Reasons: Atrial fibrillation/ [facility] dc fu Intake Note: Follow-up Afib [facility] dc feeling [employer] Required: No Allergies No Known Allergies Allergy (Verified 03/21/25 11:27) Medication List - Last Reconciled 05/04/25 by Rishi Johnson MD acetaminophen 500 mg PO Q6H PRN apixaban (Eliquis) 5 mg PO BID flecainide 50 mg PO BID ibuprofen 400 mg PO Q8H PRN lorazepam 0.5 mg PO DAILY PRN meloxicam 7.5 mg PO DAILY PRN metoprolol tartrate 25 mg PO BID multivitamin 1 tab PO DAILY simvastatin 10 mg PO BEDTIME HPI Comments Details: Ellis returns for follow-up regarding atrial fibrillation. He apparently had atrial fibrillation about 8 years ago in the context of alcohol use. He has had occasional palpitations but nothing truly bothersome. Recently, he came to the hospital for rather right-sided chest pains. In that context, he was initially in sinus rhythm but then developed atrial fibrillation which led to the hospitalization. He was going in and out of atrial fibrillation. He was not put on diltiazem drip and then flecainide was added. It converted to sinus rhythm. He is now on metoprolol/flecainide has a visit question of some dizziness after diltiazem. Overall, he states he generally feels okay. Rarely feeling palpitations. The right-sided chest pain itself is resolved. [facility] Medical History (Updated 05/04/25 @ 15:01 by Rishi Johnson MD) Afib Family History (Updated 03/22/25 @ 10:37 by Rishi Johnson MD) Father Hx of heart surgery Social History Household Members: Family Housing: House Do you presently have visiting nurse or other home services: No Patient Tobacco Use Status: Never used Tobacco service: No Review of Systems Const Denies chills, Denies fatigue, Denies fever(s), Denies frequent falls, Denies weakness, Denies weight gain and Denies weight loss ENT Denies dizziness Card Denies chest pain, Denies leg edema, Denies lightheadedness, Denies palpitations, Denies dyspnea, Denies dyspnea on exertion, Denies orthopnea and Denies other (loss of consciousness) Resp Denies cough, Denies dyspnea and Denies dyspnea on exertion GI Denies hematochezia and Denies change in stool character Musc Denies abnormal gait, Denies muscle weakness, Denies numbness, Denies radiating pain into limb and Denies tingling Neuro Denies abnormal gait, Denies dizziness, Denies frequent falls, Denies numbness, Denies tingling and Denies weakness Endo Denies fatigue and Denies palpitations Physical Exam Vital Signs: Last Vital Signs Pulse 66 05/04/25 14:01 BP 110/70 05/04/25 14:01 BMI result Body Mass Index 27.1 Const General: comfortable and no acute distress Orientation/consciousness: patient oriented x3 HEENT Other: Unremarkable Head: Yes normal to inspection Neck Neck: Yes normal visual inspection Chest Chest palpation & inspection: normal inspection of the chest Resp Auscultation: clear to auscultation bilaterally Cardio Palpation: normal PMI Heart sounds: S1 normal heart sound present, S2 normal heart sound present, no gallops, no murmurs and no rubs GI Palpation (GI): Soft to palpation Back/Spine/Pelvis Other: unremarkable Skin General skin exam: no rashes or lesions noted Neuro General: patient oriented x3 Extrem General: Yes normal to inspection Psych Mental Status: mental status grossly normal Office Procedures EKG Details: EKG with underlying sinus rhythm at 66/Min; nonspecific ST-[place] changes; [place] [id number], Complete Assessment & Plan Assessment & Plan (1) Paroxysmal atrial fibrillation: Code(s): I48.0 - Paroxysmal atrial fibrillation Category: Medical (2) Encounter for monitoring flecainide therapy: Code(s): Z51.81 - Encounter for therapeutic drug level monitoring; Z79.899 - Other custodial (current) drug therapy Category: Medical Plan Recent EKG showed atrial fibrillation with rapid rates. Then, in sinus rhythm. Initially on Diltiazem, but had dizziness and now on metoprolol. On flecainide as well. Probably just short-term anticoagulation. He can continue on this regimen for the time being. Complete comprehensive workup as ordered including echocardiogram, stress test and Holter. Sleep Study. Abstain from alcohol. Since he has not had alcohol in a few weeks, atrial fibrillation burden may actually be much improved. To be reviewed with the testing above. We also discussed about EP evaluation for possible ablation. Again, to be decided. We will follow up in a few weeks' time and then plan further care. He will reach out to us if any interim concerns. Discussion Notes I discussed with the patient the plan to conduct an echocardiogram, stress test, and sleep study to evaluate his atrial fibrillation. We reviewed the current medication regimen of Metoprolol and its safety profile. I explained the use of a Holter monitor to track atrial fibrillation episodes and the potential for an ablation procedure if necessary. The importance of reducing alcohol consumption was emphasized, and the patient was advised to report any new or worsening symptoms. Patient was informed and verbally consented to the use of an ambient scribe for clinic note documentation during this visit. Orders: Orders ECG 3 day holter monitor Today R00.2 - Palpitations Patient Instructions: - Attend scheduled echocardiogram, stress test, and sleep study appointments. - Continue taking Metoprolol as prescribed and monitor for side effects. - Use the Holter monitor as instructed to track heart rhythm. - Reduce alcohol consumption and avoid excessive drinking. - Report any new or worsening symptoms to the healthcare provider. Coding Level of Care Code Est Pt Level 4 (95104) Complex EM visit Add On G2211 Diagnoses Paroxysmal atrial fibrillation I48.0 Encounter for monitoring flecainide therapy Z51.81; Z79.899 CPT Codes EKG - CPT: 75075-[id number], Complete ([id number])
--- OUTSIDE RECORDS SUMMARY | 2025-05-04 15:15 | XMS_ITS | Clinical Summary ---
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 05/28/2024 Active famotidine (PEPCID) 40 mg tablet Take 0.5 tablets (20 mg total) by mouth 1 (one) time each day. Active simvastatin (ZOCOR) 10 mg tablet Take 1 tablet (10 mg total) by mouth at bedtime. For 180 days 90 tablet 3 12/08/2024 Active meloxicam (MOBIC) 7.5 mg tablet TAKE 1 TABLET BY MOUTH 1 TIME EACH DAY. 30 tablet 02/17/2025 Active Eliquis 5 mg tablet Take 1 tablet (5 mg total) by mouth 2 (two) times a day. 03/23/2025 Active cephalexin (KEFLEX) 500 mg capsule take 1 capsule by mouth 4 times per day for 7 days 03/24/2025 Active dilTIAZem CD (CARDIZEM CD) 120 mg 24 hr capsule TAKE 1 CAP BY MOUTH DAILY 03/23/2025 Active tamsulosin (FLOMAX) 0.4 mg 24 hr capsule Take 1 capsule (0.4 mg total) by mouth 1 (one) time each day. 01/27/2025 Active LORazepam (ATIVAN) 0.5 mg tablet Take 1 tablet (0.5 mg total) by mouth every 8 (eight) hours if needed for anxiety (Take 1 tablet as needed for anxiety/gadiel c symptoms). Max Daily Amount: 1.5 mg 30 tablet 03/30/2025 Active Active Problems Problem Noted Date Diagnosed Date Arrhythmia 04/20/2023 Tubular adenoma of colon 12/11/2022 Other viral warts 12/11/2022 Mixed hyperlipidemia 04/18/2019 Atrial fibrillation (CMS/HCC V24, CMS/HCC V28) 0 06/14/2016 Kidney cysts 11/28/2011 Overview (11/03/2024): Saw Dr Gonsalves 01/18, f/u CT 03/20 also showed cysts; repeat done 12/24 and was stable Neoplasm of uncertain behavior of skin 8 Overview (11/03/2024): Dysplastic nevus 10/19 back (mild atypia) Claustrophobia 10/26/2008 Overview (11/03/2024): Please schedule any MRI at [facility]. Pure hypercholesterolemia 07/04/2006 Infectious mononucleosis 07/04/2006 Encounters Date Type Department Care Team Description 04/10/2025 Telephone Adult Medicine [address] [phone] Tyrell Amezquita PA lab order 04/01/2025 7:33 AM EDT - 04/01/2025 11:59 PM EDT Hospital Encounter Radiology Department - [address] [phone] RUQ pain Discharge Disposition: Home or Self Care 03/30/2025 2:00 PM EDT Office Visit Adult Medicine [address] [phone] Tyrell Amezquita PA Hospital discharge follow-up (Primary Dx); Longstanding persistent atrial fibrillation (CMS/HCC V24, CMS/HCC V28); RUQ pain; Mixed hyperlipidemia; Pure hypercholesterolemia 03/23/2025 Telephone Adult Medicine [facility] [address] [place] [address] Tyrell Amezquita PA Hospital Follow-up 02/04/2025 8:46 AM EDT - 02/04/2025 11:59 PM EDT Hospital Encounter [facility] MRI [address] [place] [address] Radiculopathy, cervical region Discharge Disposition: Home or Self Care from Last 3 Months Immunizations Name Administration Dates Next Due Influenza Quadravalent, MDCK , 0.5ml, preservative free (Flucelvax) 6mo and older 09/05/2023,12/11/2022 Influenza trivalent, 0.5mL, preservative free (Fluarix; FluLaval; Fluzone) ages 6mo and older (Afluria) 3 years and older 11/17/2024,08/26/2014,09/24/2012,2010 Retty SARS-CoV-2 COVID-19, mRNA, LNP-S, preservative free 01/28/2021,01/07/2021 [...] drink = 0.6 oz pur e alcohol) Housing Instability Answer Date Recorde d Are you worried that in the next 2 months you may not have stable housing? No 01/12/2025 Food Access & Nutrition Answer Date Rec orded Do you have access to a vari ety of food including fruits and vegetables? Yes 01/12/2025 Access to Healthcare Answer Date Record ed Within the last 3 months, kriss sands many times did you visit the emergency department for your medical care? 1 01/12/2025 Health Literacy Answer Date Recorded How often do you need to hav e someone help you when you read instructions, pamphlets, or other written material from your doctor or pharmacy? Never 01/12/2025 Caregiver: How often do you need to have someone help you when you read instructions, pamphlets, or other written material from your doctor or pharmacy? Not on file 01/12/2025 Financial Risk Answer Date Recorded How hard is it for you to pa y for the very basics like food, housing, medical care, and air conditioning / heating? Not very hard 01/12/2025 Transportation Answer Date Recorded Has the lack of transportati on kept you from meetings, work, or from getting things needed for daily living? No Has the lack of transportati on kept you from medical appointments or from getting medications? No 01/12/2025 Social Isolation Answer Date Recorded How often do you feel lonely or isolated from th ose around you? Never 01/12/2025 Food Risk Answer Date Recorded Within the past 12 months we worried whether our food would run out before we got money to buy more. Never true 01/12/2025 Within the past 12 months th e food we bought just didn't last and we didn't have money to get more. Never true 01/12/2025 Dependent Care Answer Date Recorded Do you need help finding or paying for care for your loved ones. For example, early childhood coordinator or elderly care for an older adult? No 01/12/2025 Education Answer Date Recorded Do you think completing more education or training, like finishing a GED, going to college, or learning a trade, would be helpful for you? No 01/12/2025 Employment and Income Answer Date Recor ded During the last four weeks, have you been actively looking for work? No 01/12/2025 Living Situation Answer Date Recorded What is your living situation? 0 01/12/2025 Sex and Gender Information Value Date Recorded Sex Assigned at Male 04/02/2025 2:58 PM EDT Legal Sex Male 8:13 PM EST Gender Identity Male 04/02/2025 2:58 PM EDT Sexual Orientation Straight 04/02/2025 2: 58 PM EDT Obstetrics History Last Filed Vital Signs Vital Sign Reading Time Taken Comments Blood Pressure 120/71 03/30/2025 1:48 PM EDT Pulse 87 03/30/2025 1:48 PM EDT Temperature 35.9 C (96.6 F) 03/30/2025 1:48 PM EDT Respiratory Rate 14 03/30/2025 1:48 PM EDT Oxygen Saturation - - Inhaled Oxygen Concentration - - Weight 81.2 kg (179 lb) 03/30/2025 1:48 PM EDT Height 172.7 cm (5' 8 ) 03/30/2025 1:48 PM EDT Body Mass Index 27.22 03/30/2025 1:48 PM EDT Plan of Treatment Upcoming Encounters Date Type Department Care Team (Late st Contact Info) Description 05/08/2025 3:00 PM EDT Office Visit Adult Medicine [facility] [address], [place] [phone] Tyrell Amezquita PA [address] [place] [address] 05/28/2025 2:20 PM EDT Consult Gastroenterology - [place] [address] [place] [address] Adrianna Olea, BINH [address] [facility] [address] [place] [address] 06/03/2025 9:00 AM EDT Appointment [facility] Nuclear Medicine [address] [place] [address] Health Maintenance Due Date Last Done Comments Hepatitis A Vaccines (1 of 2 - Risk 2-dose series) 1985 Hepatitis B Vaccines (1 of 3 - 19+ 3-dose series) 1985 Pneumococcal Vaccine: 50+ Years (1 of 2 - PCV) 1985 Pneumococcal Vaccine: Pediatrics (0 to 5 Years) and At-Risk Patients (6 to 64 Years) (1 of 2 - PCV) 1985 Zoster Vaccines (1 of 2) 1985 HIV Screening 10/21/2022 COVID-19 Vaccine ( season) 2024 10/02/2023, 11/08/2021, 01/28/2021, Additional history exists DTaP,Tdap,and Td Vaccines (3 - Td or Tdap) 12/11/2024 12/11/2014, 10/12/2004 Depression Screening 01/12/2026 01/12/2025 Social Influencers of Health Screening 01/12/2026 01/12/2025 Colorectal Cancer Screening: Colonoscopy 01/31/2029 02/01/2024 Cholesterol Screening (Lipid Panel) 04/15/2030 04/15/2025, 09/26/2023 Hepatitis C Screening Completed 12/12/2022 Influenza Vaccine [...] age to complete this topic Meningococcal B Vaccine Aged Out No l onger eligible based on patient's age to complete this topic RSV Immunization Patients Under 20 months Aged Out No longer eligible based on patient's age to complete this topic Varicella Vaccines Aged Out No longer eligible based on patient's age to complete this topic Procedures Procedure Name Priority Date/Time Associated Diagnosis Comments CBC WITH AUTO DIFFERENTIAL Routine 04/15/2025 8:01 AM EDT Mixed hyperlipidemia Longstanding persistent atrial fibrillation (CMS/HCC V24, CMS/HCC V28) Pure hypercholesterolemia LIPID PANEL WITH REFLEX TO DIRECT LDL Routine 04/15/2025 8:01 AM EDT Mixed hyperlipidemia Longstanding persistent atrial fibrillation (CMS/HCC V24, CMS/HCC V28) Pure hypercholesterolemia COMPREHENSIVE METABOLIC PANEL Routine 04/15/2025 8:01 AM EDT Mixed hyperlipidemia Longstanding persistent atrial fibrillation (CMS/HCC V24, CMS/HCC V28) Pure hypercholesterolemia CBC AND DIFFERENTIAL Routine 04/15/2025 8:01 AM EDT Mixed hyperlipidemia Longstanding persistent atrial fibrillation (CMS/HCC V24, CMS/HCC V28) Pure hypercholesterolemia PROSTATE SPECIFIC ANTIGEN SCREEN Routine 04/15/2025 8:01 AM EDT Mixed hyperlipidemia Longstanding persistent atrial fibrillation (CMS/HCC V24, CMS/HCC V28) Pure hypercholesterolemia CULTURE URINE Routine 04/15/2025 8:01 AM EDT Dysuria Left testicular pain Prostatitis, unspecified prostatitis type US ABDOMEN LIMITED Routine 04/01/2025 8: 07 AM EDT RUQ pain EXTERNAL CT REPORT 03/21/[address] REPORT 03/21/2025 MR CERVICAL SPINE WO CONTRAST Routine 02/04/2025 9:47 AM EDT Radiculopathy, cervical region HEPATITIS C SCREENING Routine 12/12/2022 from Last 3 Months or Most Recently Relevant to Health Maintenance Results * Prostate specific antigen screen (04/15/2025 8:01 AM EDT) Pathologist [facility] [place] PSA 1.02 0.00 - 4.00 ng/mL LAB CHEMISTRY METHOD 04/15/2025 11:50 AM [facility] Blood Venous blood specimen / Unknown Venipuncture / Unknown 04/15/2025 8:01 AM EDT 04/15/2025 8:[address] [facility] - 04/15/2025 11:50 AM EDT The Siemens Advia Centaur Chemiluminescent Immunoassay is used. Results obtained with different assay methods or kits cannot be used interchangeably. Results cannot be interpreted as absolute evidence of the presence or absence of malignant disease. Tyrell WADDELL LAB BLOOD ORDERABLES Esther lozada Result [facility] [address] [place] [address], * (ABNORMAL) Lipid panel with reflex to direct LDL (04/15/2025 8:01 AM EDT) [facility] Cholesterol 199 0 - 200 mg/dL LAB CHEMISTRY METHOD 04/15/2025 11:02 AM [facility] Triglycerides 160(H) 0 - 150 mg/dL LAB CHEMISTRY METHOD 04/15/2025 11:02 AM [facility] HDL 45 >=40 mg/dL LAB CHEMISTRY METHOD 04/15/2025 11:02 AM [facility] LDL Calculated 122(H) 0 - 100 mg/dL LAB CHEMISTRY METHOD 04/15/2025 11:02 AM [facility] VLDL Cholesterol Aries 32 mg/dL LAB CHEMISTRY METHOD 04/15/2025 11:02 AM [facility] Non HDL Chol. (LDL+VLDL) 154(H) <145 mg/dL LAB CHEMISTRY METHOD 04/15/2025 11:02 AM [facility] Chol/HDL Ratio 4.4 0.0 - 4.4 LAB CHEMISTRY METHOD 04/15/2025 11:02 AM EDT [facility] Blood Venous blood specimen / Unknown Venipuncture / Unknown 04/15/2025 8:01 AM EDT 04/15/2025 8:01 AM EDT Tyrell WADDELL LAB BLOOD ORDERABLES Esther lozada Result [facility] [address] [place] [address], * (ABNORMAL) CBC auto differential (04/15/2025 8:01 AM EDT) WBC 5.4 4.8 - 10.8 K/mcL LAB HEMETOLOGY METHOD 04/15/2025 10:58 AM [facility] RBC 5.10 4.50 - 5.50 M/mcL LAB HEMETOLOGY METHOD 04/15/2025 10:58 AM [facility] Hemoglobin 15.1 13.5 - 17.5 g/dL LAB HEMETOLOGY METHOD 04/15/2025 10:58 AM [facility] Hematocrit 45.0 42.0 - 54.0 % LAB HEMETOLOGY METHOD 04/15/2025 10:58 AM [facility] MCV 88.4 79.0 - 98.0 FL LAB HEMETOLOGY METHOD 04/15/2025 10:58 AM [facility] MCH 29.7 27.0 - 32.0 pcg LAB HEMETOLOGY METHOD 04/15/2025 10:58 AM [facility] MCHC 33.6 32.0 - 37.0 g/dL LAB HEMETOLOGY METHOD 04/15/2025 10:58 AM [facility] RDW 12.7 11.0 - 15.0 % LAB HEMETOLOGY METHOD 04/15/2025 10:58 AM [facility] Platelets 277 130 - 400 K/mcL LAB HEMETOLOGY METHOD 04/15/2025 10:58 AM [facility] MPV 11.1(H) 7.0 - 11.0 FL LAB HEMETOLOGY METHOD 04/15/2025 10:58 AM [facility] NRBC 0.0 <1.0 % LAB HEMETOLOGY METHOD 04/15/2025 10:58 AM [facility] NRBC Absolute 0.00 <0.10 K/mcL LAB HEMETOLOGY METHOD 04/15/2025 10:58 AM [facility] Neutrophils Relative 48.3 % LAB HEMETOLOGY METHOD 04/15/2025 10:58 AM [facility] Lymphocytes Relative 35.3 % LAB HEMETOLOGY METHOD 04/15/2025 10:58 AM [facility] Monocytes Relative 10.3 % LAB HEMETOLOGY METHOD 04/15/2025 10:58 AM [facility] Eosinophils Relative 4.8 % LAB HEMETOLOGY METHOD 04/15/2025 10:58 AM [facility] Basophils Relative 0.9 % LAB HEMETOLOGY METHOD 04/15/2025 10:58 AM [facility] Immature Granulocytes Relative 0.4 % LAB HEMETOLOGY METHOD 04/15/2025 10:58 AM [facility] Neutrophils Absolute 2.63 1.50 - 7.00 K/mcL LAB HEMETOLOGY METHOD 04/15/2025 10:58 AM [facility] Lymphocytes Absolute 1.92 1.00 - 5.00 K/mcL LAB HEMETOLOGY METHOD 04/15/2025 10:58 AM [facility] Monocytes Absolute 0.56 0.20 - 1.00 K/mcL LAB HEMETOLOGY METHOD 04/15/2025 10:58 AM EDT [facility] Eosinophils Absolute 0.26 0.00 - 0.50 K/[facility] LAB HEMETOLOGY METHOD 04/15/2025 10:58 AM EDT [facility] Basophils Absolute 0.05 0.00 - 0.20 K/[facility] LAB HEMETOLOGY METHOD 04/15/2025 10:58 AM EDT [facility] Immature Granulocytes Absolute 0.02 0.00 - 0.03 K/[facility] LAB HEMETOLOGY METHOD 04/15/2025 10:58 AM EDT [facility] Blood Venous blood specimen / Unknown Venipuncture / Unknown 04/15/2025 8:01 AM EDT 04/15/2025 8:01 AM EDT Tyrell WADDELL LAB BLOOD ORDERABLES Esther l Result [facility] [address] [place] [address], [place] [phone] * Culture urine (04/15/2025 8:01 AM EDT) Culture, Urine No growth 04/16/2025 8:40 AM EDT [facility] Urine Urine specimen obtained by clean catch procedure / Unknown Non-blood Collection / Unknown 04/15/2025 8:01 AM EDT 04/15/2025 8:01 AM EDT Tyrell WADDELL LAB MICROBIOLOGY - GENERA L ORDERABLES Final Result [facility] [address] [place] [address], [place] [phone] * (ABNORMAL) Comprehensive metabolic panel (04/15/2025 8:01 AM EDT) Sodium 136 133 - 145 mmol/L LAB CHEMISTRY METHOD 04/15/2025 11:02 AM [facility] Potassium 3.8 3.5 - 5.5 mmol/L LAB CHEMISTRY METHOD 04/15/2025 11:02 AM [facility] Chloride 102 96 - 110 mmol/L LAB CHEMISTRY METHOD 04/15/2025 11:02 AM [facility] CO2 27 21 - 32 mmol/L LAB CHEMISTRY METHOD 04/15/2025 11:02 AM [facility] Anion Gap 7 3 - 11 LAB CHEMISTRY METHOD 04/15/2025 11:02 AM [facility] Glucose 112(H) 70 - 100 mg/dL LAB CHEMISTRY METHOD 04/15/2025 11:02 AM [facility] BUN 16 5 - 25 mg/dL LAB CHEMISTRY METHOD 04/15/2025 11:02 AM [facility] Creatinine 0.96 0.70 - 1.30 mg/dL LAB CHEMISTRY METHOD 04/15/2025 11:02 AM [facility] eGFR 92 >=60 mL/min/1. 73m2 LAB CHEMISTRY METHOD 04/15/2025 11:02 AM [facility] Comment:Calculation based on the Chronic Kidney Disease Epidemiology Collaboration (CKD-EPI) equation refit without adjustment for race. BUN/Creatinine Ratio 16.7 LAB CHEMISTRY METHOD 04/15/2025 11:02 AM [facility] Calcium 9.4 8.5 - 10.5 mg/dL LAB CHEMISTRY METHOD 04/15/2025 11:02 AM [facility] AST (SGOT) 20 10 - 42 unit/L LAB CHEMISTRY METHOD 04/15/2025 11:02 AM [facility] ALT (SGPT) 38 10 - 60 unit/L LAB CHEMISTRY METHOD 04/15/2025 11:02 AM [facility] Alkaline Phosphatase 75 42 - 121 unit/L LAB CHEMISTRY METHOD 04/15/2025 11:02 AM EDT [facility] Total Protein 7.5 6.0 - 8.0 g/dL LAB CHEMISTRY METHOD 04/15/2025 11:02 AM EDT [facility] Albumin 4.3 3.2 - 5.0 g/dL LAB CHEMISTRY METHOD 04/15/2025 11:02 AM EDT [facility] Total Bilirubin 1.1 0.0 - 1.4 mg/dL LAB CHEMISTRY METHOD 04/15/2025 11:02 AM EDT [facility] Blood Venous blood specimen / Unknown Venipuncture / Unknown 04/15/2025 8:01 AM EDT 04/15/2025 8:01 AM EDT us Tyrell WADDELL LAB BLOOD ORDERABLES Esther lozada Result [facility] [address] [place] [address], [place] [phone] * US Abdomen Limited (04/01/2025 8:07 AM EDT) Anatomical Region Laterality Modality Body Ultrasound 04/01/2025 9:39 AM EDT Impressions 04/01/2025 9:42 AM EDT Hepatic cysts. Gallbladder is unremarkable. -------- FINAL REPORT -------- Dictated By: Deborah Rosenthal Dictated Date: 04/01/2025 09:39 ET Assigned Physician: Deborah Rosenthal Reviewed and Electronically Signed By: Deborah Rosenthal Signed Date: 04/01/2025 09:42 ET Workstation ID: [id number] Transcribed By: Self Edit Transcribed Date: 04/01/2025 09:39 ET Narrative 04/01/2025 9:42 AM EDT ABDOMINAL ULTRASOUND-LIMITED History: Right upper quadrant abdominal pain. Rule out gallbladder disease. Comparison: Retroperitoneal ultrasound 12/22/2024. FINDINGS: There is no evidence of cholelithiasis. The common bile duct is not dilated, measuring 4 mm. The gallbladder wall is not thickened. No pericholecystic fluid is seen. No ascites are seen. The visualized pancreas is normal in size and demonstrates normal echotexture. However, the tail of the pancreas is obscured. The liver measures 13.7 cm in length and demonstrates normal echotexture. There is a 1.3 cm x 1.9 x 1.8 cyst of the left lobe the liver. There is a 2.2 x 1.3 x 1.6 cm cyst of the right lobe of the liver. There is no evidence of intrahepatic ductal dilation. Normal hepatopedal flow is seen in the main portal vein. No evidence of hydronephrosis, mass, or calculus was seen in the right kidney. The right kidney measures 10.5 cm in greatest length. Procedure Note Deborah Rosenthal MD - 04/01/2025 ABDOMINAL ULTRASOUND-LIMITED History: Right upper quadrant abdominal pain. Rule out gallbladderdisease. Comparison: Retroperitoneal ultrasound 12/22/2024. FINDINGS: There is no evidence of cholelithiasis. The common bile duct isnot dilated, measuring 4 mm. The gallbladder wall is not thickened. Nopericholecystic fluid is seen. No ascites are seen. The visualized pancreas is normal in size and demonstrates normalechotexture. However, the tail of the pancreas is obscured. The liver measures 13.7 cm in length and demonstrates normalechotexture. There is a 1.3 cm x 1.9 x 1.8 cyst of the left lobe the liver. There is a 2.2 x 1.3 x 1.6 cm cyst of the right lobe of the liver. There is no evidence of intrahepatic ductal dilation. Normal hepatopedalflow is seen in the main portal vein. No evidence of hydronephrosis, mass, or calculus was seen in the rightkidney. The right kidney measures 10.5 cm in greatest length. IMPRESSION: Hepatic cysts. Gallbladder is unremarkable. -------- FINAL REPORT -------- Dictated By: Deborah Rosenthal Dictated Date: 04/01/2025 09:39 ET Assigned Physician: Deborah Rosenthal Reviewed and Electronically Signed By: Deborah Rosenthal Signed Date: 04/01/2025 09:42 ET Workstation ID: [id number] Transcribed By: Self Edit Transcribed Date: 04/01/2025 09:39 ET Tyrell WADDELL IMG US PROCEDURES Final R esult * External CT Report (03/21/2025) Only the most recent of2 resultswithin the time period is included. Anatomical Region Laterality Modality Computed Tomogra phy us Provider [facility] CT PROCEDURES Final Result * MR Cervical Spine wo Contrast (02/04/2025 9:47 AM EDT) Anatomical Region Laterality Modality C-spine, Spine Magnetic Resonan ce 02/10/2025 1:17 PM EDT Impressions 02/10/2025 1:30 PM EDT Right foraminal protrusion at C6-7 resulting in mass effect upon the exiting right C7 nerve and moderate right foraminal stenosis. Correlate for right C7 radiculopathy. -------- FINAL REPORT -------- Dictated By: GILBERTO MANCINI Dictated Date: 02/10/2025 13:17 ET Assigned Physician: GILBERTO MANCINI Reviewed and Electronically Signed By: GILBERTO MANCINI Signed Date: 02/10/2025 13:30 ET Workstation ID: [id number] Transcribed By: Self Edit Transcribed Date: 02/10/2025 13:17 ET Narrative 02/10/2025 1:30 PM EDT PROCEDURE: Cervical spine MRI INDICATION: Pain, radiculopathy TECHNIQUE: Multiplanar, multisequence MRI of the Cervical spine Without contrast. COMPARISON: No priors available. FINDINGS: Cervical lordosis is preserved. No fracture or suspicious marrow replacing lesion. Mild degenerative loss of normal disc height and signal at C3-4 and C6-7. Mild degenerative facet arthritis, most pronounced on the left at C4-5. Cervical cord is normal in signal and morphology. No epidural collection or mass is seen within the spinal canal. Paraspinal muscles are within normal limits. Visualized intracranial structures are normal. Findings by level: C2-C3: No focal disc protrusion, foraminal stenosis, or spinal canal stenosis. C3-C4: Posterior disc osteophyte complex and right uncovertebral spur results in mild right and no left foraminal stenosis. No spinal canal stenosis. C4-C5: No focal disc protrusion, foraminal stenosis, or spinal canal stenosis. C5-C6: No focal disc protrusion, foraminal stenosis, or spinal canal stenosis. C6-C7: Right foraminal protrusion resulting in mass effect upon the exiting right C7 nerve and moderate right foraminal stenosis. Bilateral uncovertebral spurring with mild left foraminal stenosis. No spinal canal stenosis. C7-T1: No focal disc protrusion, foraminal stenosis, or spinal canal stenosis. Procedure Note Gilberto Mancini MD - 02/10/2025 PROCEDURE: Cervical spine MRI INDICATION: Pain, radiculopathy TECHNIQUE: Multiplanar, multisequence MRI of the Cervical spine Withoutcontrast. COMPARISON: No priors available. FINDINGS: Cervical lordosis is preserved. No fracture or suspicious marrow replacing lesion. Mild degenerative loss of normal disc height and signal at C3-4 andC6-7. Mild degenerative facet arthritis, most pronounced on the left at C4-5. Cervical cord is normal in signal and morphology. No epidural collectionor mass is seen within the spinal canal. Paraspinal muscles are within normal limits. Visualized intracranialstructures are normal. Findings by level: C2-C3: No focal disc protrusion, foraminal stenosis, or spinal canalstenosis. C3-C4: Posterior disc osteophyte complex and right uncovertebral spurresults in mild right and no left foraminal stenosis. No spinal canalstenosis. C4-C5: No focal disc protrusion, foraminal stenosis, or spinal canalstenosis. C5-C6: No focal disc protrusion, foraminal stenosis, or spinal canalstenosis. C6-C7: Right foraminal protrusion resulting in mass effect upon theexiting right C7 nerve and moderate right foraminal stenosis. Bilateraluncovertebral spurring with mild left foraminal stenosis. No spinal canalstenosis. C7-T1: No focal disc protrusion, foraminal stenosis, or spinal canalstenosis. IMPRESSION: Right foraminal protrusion at C6-7 resulting in mass effect upon theexiting right C7 nerve and moderate right foraminal stenosis. Correlatefor right C7 radiculopathy. -------- FINAL REPORT -------- Dictated By: GILBERTO MANCINI Dictated Date: 02/10/2025 13:17 ET Assigned Physician: GILBERTO MANCINI Reviewed and Electronically Signed By: GILBERTO MANCINI Signed Date: 02/10/2025 13:30 ET Workstation ID: [id number] Transcribed By: Self Edit Transcribed Date: 02/10/2025 13:17 ET us Manny WADDELL IMG MRI PROCEDURES Final Resul t * Hepatitis C Screening (12/12/2022) Hepatitis C Screening abstracted us Historical Provider MD HEALTH MAINTENANCE Final Result from Last 3 Months or Most Recently Relevant to Health Maintenance Insurance [facility] Care Teams Furnace Utility Operator Relationship Specialty Start Date End Date Tyrell Amezquita PA [address] [place] [address] PCP - General Internal Medicine 04/27/21
== END 2025-05-04 14:58 | disposition home or self-care (01) ==
LOC: HO.HCS 13:48
PROVIDERS: PCP Physician Assistant Medical; Visit Provider Internal Medicine
DX: I48.0 Paroxysmal atrial fibrillation (principal); Z51.81 Encounter for therapeutic drug level monitoring; Z79.899 Other long term (current) drug therapy
CPT/HCPCS: 93010; 99214

== ENCOUNTER → 2025-05-04 13:48 | Outpatient (BNVA) | payer BC, SELFPAY | PROVIDERS: PCP Physician Assistant Medical; Visit Provider Internal Medicine | DX: I48.0 Paroxysmal atrial fibrillation (principal); R00.2 Palpitations; Z51.81 Encounter for therapeutic drug level monitoring; Z79.01 Long term (current) use of anticoagulants; Z79.899 Other long term (current) drug therapy | CPT/HCPCS: 93005 ==

== ENCOUNTER → 2025-05-11 08:02 | Outpatient (REF) | payer BC, SELFPAY ==
--- OUTSIDE RECORDS SUMMARY | 2025-05-11 08:05 | XMS_ITS | Encounter Summary ---
Author Organization [facility] Address [address] [place] [address] Care Team Providers Care Rn Child Name Role Phone Dillan Steinberg MD Primary Care Provider [phone] Sulaiman Matos MD Primary Care Provider [phone] Tyrell Amezquita PA-C Primary Care Provider [phone] Chiki Burns MD Unavailable Encounter Details Date Type Department Care Team Description 06/21/2016 [employer] [employer] Report Medical Records [address] [place] [id number] Abstract, Provider Social History Tobacco Use Types Packs/Day Years Used Date Smoking Tobacco: Never Smokeless Tobacco: Never Alcohol Use Standard Drinks/Week Comments Yes 0 (1 standard drink = 0.6 oz pur e alcohol) 3-4 per day, few days a week Sex Assigned at Date Recorded Not on file Job Start Date Occupation Industry Not on file Not on file Not on file documented as of this encounter Plan of Treatment Not on file documented as of this encounter Visit Diagnoses Not on filedocumented in this encounter Care Teams Rn Child Relationship Specialty Start Date End Date Dillan Steinberg MD [address] [place] [address] PCP - General Internal Medicine 11/15/11 03/31/19 Sulaiman Matos MD [address] [place] [address] PCP - General Internal Medicine 04/01/19 04/26/21 Tyrell Amezquita PA-C [address], [place] [id number] PCP - General Internal Medicine 04/27/21 Chiki Burns MD [address], [place] [id number] Specialist Cardiovascular Disease 12/18/22 documented as of this encounter
--- NOTE | 2025-05-11 08:06 | HM_ITS ---
* Total monitoring time 3 days. * Underlying rhythm is sinus with an average rate of 63/Min. * Rare supraventricular ectopy. * Rare ventricular ectopy. * No significant pauses or high-grade AV blocks. * Rapid/fast beating symptom in patient diary correlates with sinus rhythm. MTDD
== END ==
LOC: HO.CARD 08:02
PROVIDERS: Visit Provider Internal Medicine
DX: R00.2 Palpitations (principal)
CPT/HCPCS: 93242

== ENCOUNTER → 2025-05-11 08:06 | Outpatient (BNV) | payer BC, SELFPAY | PROVIDERS: Visit Provider Internal Medicine | DX: I49.3 Ventricular premature depolarization (principal); I47.10 Supraventricular tachycardia, unspecified | CPT/HCPCS: 93244 ==

== ENCOUNTER → 2025-05-26 08:44 | Outpatient (REF) | payer BC, SELFPAY ==
--- NOTE | 2025-05-26 08:47 | CA_ITS ---
Acquisition Time: 2025-05-26 09:43:27 Total Exercise Time: 00:10:27 Test Indications: Abnormal ECG,Palpitations Medications: ELIQUIS FLECAINIDE METOPROLOL MELOXICAM METOPROLOL SIMVASTATIN Protocol: LESLYE Max HR: 141 BPM 87% of Pred: 162 BPM Max BP: 162/70 mmHG Max Work Load: 12.4 METS Exercise stress test with exercise 10 mins 27 secs of Leslye Protocol, achieving 85% MPHR, without any reported symptoms of angina, with isolated PACs and PVCs, with normotensive response to exercise. With ST changes inferiorly meeting criteria for ischemia. In recovery, pt continued to feel well. ST segment improved. Will order coronary CTA. Test reviewed with Dr. Johnson. Referred By: Roc Melendez Electronically Signed By: Martín Albright
--- NOTE | 2025-05-26 08:47 | CA_ITS ---
Transthoracic Echocardiogram Patient (Last, First, Middle): Ash Rosales, Gender: Male Date of : 1965 Age: 59 Procedure Date: 05/26/2025 Procedure Type: Transthoracic Echocardiogram Location: OP Height: 172.72 cm Weight: 79.38 kg BSA: 1.93 m2 Heart Rate: bpm BP: 124 / 80 mmHg Charger Operator Helper: Referring MD: Roc Melendez MD Symptoms: R07.9 - Chest pain, unspecified Study Quality: Adequate ECG Rhythm: Sinus Conclusions: - The left ventricular systolic function is normal. The calculated ejection fraction is 65% by biplane method. - No obvious valvular pathology seen on this study. Findings Left Ventricle Normal left ventricular cavity size. There is normal left ventricular wall thickness. The left ventricular systolic function is normal. The calculated ejection fraction is 65% by biplane method. There is no evidence of regional wall motion abnormalities. Diastolic function is normal for age. Right Ventricle Normal right ventricular cavity size and systolic function. Atria Both atria are normal in size. Aortic Valve There is a normal trileaflet aortic valve. There is no aortic valve stenosis. There is trace (trivial) aortic valve regurgitation. Mitral Valve The mitral valve appears normal. There is trace mitral valve regurgitation. There is no mitral valve stenosis. Pulmonic Valve The pulmonic valve is likely normal. There is trace pulmonic valve regurgitation. Tricuspid Valve Normal tricuspid valve structure. There is no tricuspid valve regurgitation. There is no evidence of pulmonary hypertension. Great Vessels The asc aorta is normal in size. Venous The inferior vena cava is normal in size and collapses less than 50% with inspiration. Pericardium/Pleural There is no evidence of pericardial effusion. Prior Study Comparison No prior study available for comparison. Recommendations, Care & Conclusions No obvious valvular pathology seen on this study. Measurements 2D Linear Measurements IVSd: 0.99 0.6-0.9/0.6-1.0 cm LVIDd: 4.53 3.9-5.3/4.2-5.9 cm LVIDd Index: 2.35 2.4-3.2/2.2-3.1 cm/m2 LVIDs: 2.85 2.0-3.6 cm LVPWd: 1.08 0.7-1.1 cm Ao Root: 3.20 2.1-3.5 cm LA Diam: 3.70 2.7-3.8/3.0-4.0 cm LAIDs Index: 1.92 1.5-2.3 cm/m2 LV Mass: 201.64 67-162/88-224 g LV Mass Index: 104.48 43-95/49-115 g/m2 LVOT Diam: 2.50 3.0+(-)1.3 cm 2D Systolic Function EF 4C: 68.50 >55% EF 2C: 60.70 >55% EF BiP: 65.30 >55% Mitral Valve MV Pk E: 0.74 MV PK A: 0.58 MV Decel Time: 194.00 E/A: 1.30 E'Lateral: 15.10 E'Medial: 6.31 E/E' Med: 11.70 E/E' Lat: 4.90 PHT: 57.00 MVA PHT: 3.86 Decel [place]: 3.83 Aortic Valve AoV Pk Herb: 0.99 AoV Mn Herb: 0.69 AoV VTI: 0.23 AoV Pk Grad: 4.00 Aov Mn Grad: 2.00 DIPTI Cont.VTI: 3.66 LVOT LVOT Pk Herb: 0.78 LVOT Mn Herb: 0.47 LVOT VTI: 0.17 LVOT Pk Grad: 2.00 LVOT Mn Grad: 1.00 LVOT Diam: 2.50 LVOT Area: 4.91 Diastolic Function MV Pk E: 0.74 MV Pk A: 0.58 E/A: 1.30 E'Medial: 6.31 E/E' Med: 11.70 E' Laterial: 15.10 E/E' Lat: 4.90 Right Ventricle TAPSE (mm): 24.00 TVS' Herb: 14.00 Tricuspid Valve TR Pk Herb: 1.94 TR Pk Grad: 15.00 RA Press: 3.00 RVSP: 18.00 Great Vessels Aorta Ao Root-2D: 3.20 2.0-3.7 cm Ao Asc: 2.90 2.1-3.4 cm Pulmonary Valve PV Pk Herb: 0.77 Peak PV Grad: 2.00 Updated in Other Vendor System with Status of Final Rishi oJhnson MD electronically signed on 05/28/2025 9:47:08 AM with status of Final
--- OUTSIDE RECORDS SUMMARY | 2025-05-26 08:52 | XMS_ITS | Continuity of Care Document ---
Author Name [facility] Organization [facility] Care Team Providers Care Bed Maker Name Role Phone [facility] Unavailable Unavailable Problems Combined list of problems from Department of Defense and Veterans Affairs facilities. It does not include entries that were removed or entered in error. Problem Status Onset Date Problem Type Date of Resolution Comments Source Hypercholesterolemia Active 11/12/19 23 Condition [facility] Alcohol dependence Active Condition A 2022 Entered By: TAYLER ESTEVEZ Comment: Alcohol Use Disorder, Severe [facility] [place] [facility] Anxiety disorder Active Condition Mar 06, 2022 Entered By: MELANIE BANKS Comment: updated. [facility] Moderate alcohol dependence Active Condition Jan 19, 2023 Entered By: MELANIE BANKS Comment: updated. [facility] Medications Combined list of outpatient medications from Department of Defense and Veterans Affairs facilities.Medications provided include 1) outpatient medications from the last 15 months, and 2) patient-reported medications. Medication Details Route Status Patient Instructions Prescription Expires Prescription Number Last Dispense Date Ordering Provider Order Date Order Qty Source LORAZEPAM 0.5MG TAB TAKE ONE TABLET BY MOUTH TWICE DAILY NEEDED FOR ANXIETY ORAL 12/28/2024 [id number] 5 Lyndon KO 2024 6 [place] Immunizations Combined list of available immunizations from the Department of Defense and Veterans Affairs facilities. Immunization Series Date Given Administered By Site Reaction Lot Number CVX Code Drug Manager Staffing Status Comments Source COVID-19 (PFIZER), MRNA, LNP-S, PF, 30 MCG/0.3 ML DOSE 2 2020 208 complet ed PFR; [id number]; 1 [facility] COVID-19 (PFIZER), MRNA, LNP-S, PF, 30 MCG/0.3 ML DOSE 1 2020 208 complet ed PFR; [id number]; 1 [facility] FLU,3 YRS (HISTORICAL) 2013 88 complet ed Partner: [employer] . Administe red by: TOM MENDOZA ([phone] [id number]). Partner 1 [facility] Encounters Combined list of: 1) Encounters from Department of Veterans Affairs facilities going backup to the last 18 months, not all [place] inpatient encounters are included; 2) Encounters from the Department of [employer] facilities going backup to 280 months. Location Location Details Encounter Type Encounter Number Reason For Visit Attending Provider ADM Date DC Date Status Disposition Source [facility] Outpatient Encounter [id number] 01/07 [facility]counter [id number] 01/19 [facility] Out[facility]counter [id number] 01/28 [facility] Encounter [id number] 01/30 [facility] [place] Outpatient Encounter [id number] 03/11 [place] [facility] Outpatient Encounter [id number] 05/28 [facility]counter [id number] 05/28 [facility]counter [id number] 05/30 [facility] Outpatient Encounter [id number] 10/14 [facility]counter [id number] 11/17 [facility] Encounter [id number] 11/28 [facility] Outpatient Encounter [id number] 02/23 [facility] [place] [facility] Procedures Combined list of: 1) Procedures from Department of Veterans Affairs facilities going back up to thelast 18 months, not all [place] non-surgical procedures are included; 2) All procedures from the Department of Defense facilities. Procedure Procedure Type Code Date Perfomer Comments Sourc e INJECTION OR INFUSION OF OTHER THERAPEUTIC OR PROPHYLACTIC SUBSTANCE 01/27/1990 Do D Social History Combined list of available smoking, tobacco, and other social history from Department of Defense and Veterans Affairs facilities. Social History Type Response Date Comment Sourc e Tobacco smoking status NHIS VA-TOBACCO NEVER USED 05/28/2023 [facility] D History of tobacco use ME-TOBACCO NEVER USED 03/06/2022 [facility] D History of tobacco use VA-TOBACCO NEVER USED 01/20/2021 [facility] D History of tobacco use ME-TOBACCO NEVER USED 09/18/2018 [facility] D History of tobacco use LIFETIME NON-TOBACCO USER 10/11/2017 [facility] History of tobacco use LIFETIME NON-TOBACCO USER 10/19/2016 [place] History of tobacco use LIFETIME NON-TOBACCO USER 03/03/2015 [facility] This section is an empty social history section. [facility] Plan of Care List of future care activities from Department of Veterans Affairs facilities. Additional future care activities may be listed in the Assessment and Plan section. Date/Time Care Activity Care Activity Detail Facili ty 06/25/2025 AMBULATORY - MEDICINE [facility]
--- OUTSIDE RECORDS SUMMARY | 2025-05-26 08:53 | XMS_ITS | Clinical Summary ---
Author Organization [facility] [address] [facility] Address [address] [place] [address] Phone Care Team Providers Care Crop Picker Name Role Phone Tyrell Amezquita Primary Care Provider [phone] Allergies Active Allergy Reactions Criticality Noted Date Comments Rosuvastatin Pain High 09/24/2023 Other Reaction(s): ACHES Sulfamethoxazole-Trimethop rim Numbness,Rash High 07/16/2020 Medications ibuprofen (ADVIL,MOTRIN) 800 mg tablet Take 1 tablet (800 mg total) by mouth every 8 (eight) hours if needed for mild pain (for up to 30 days). 4 Active famotidine (PEPCID) 40 mg tablet Take 0.5 tablets (20 mg total) by mouth 1 (one) time each day. Active simvastatin (ZOCOR) 10 mg tablet Take 1 tablet (10 mg total) by mouth at bedtime. For 180 days 90 tablet 3 5 Active meloxicam (MOBIC) 7.5 mg tablet TAKE 1 TABLET BY MOUTH 1 TIME EACH DAY. 30 tablet 5 Active Eliquis 5 mg tablet Take 1 tablet (5 mg total) by mouth 2 (two) times a day. 5 Active cephalexin (KEFLEX) 500 mg capsule take 1 capsule by mouth 4 times per day for 7 days 5 Active dilTIAZem CD (CARDIZEM CD) 120 mg 24 hr capsule TAKE 1 CAP BY MOUTH DAILY 5 Active tamsulosin (FLOMAX) 0.4 mg 24 hr capsule Take 1 capsule (0.4 mg total) by mouth 1 (one) time each day. 5 Active LORazepam (ATIVAN) 0.5 mg tablet Take 1 tablet (0.5 mg total) by mouth every 8 (eight) hours if needed for anxiety (Take 1 tablet as needed for anxiety/gadiel c symptoms). Max Daily Amount: 1.5 mg 30 tablet 5 Active LORazepam (ATIVAN) 0.5 mg tablet Take 1 tablet (0.5 mg total) by mouth every 8 (eight) hours if needed for anxiety (Take 1 tablet as needed for anxiety/gadiel c symptoms). Max Daily Amount: 1.5 mg 30 tablet 5 05/14/20 25 Discontinu ed(Reorder ) Active Problems Problem Noted Date Diagnosed Date [...] Overview (11/03/2024): Please schedule any MRI at [facility]. Pure hypercholesterolemia 07/04/2006 Infectious mononucleosis 07/04/2006 Encounters Date Type Department Care Team Description 04/10/2025 Telephone Adult Medicine [facility] - [address] [phone] Tyrell Amezquita PA lab order 04/01/2025 7:33 AM EDT - 04/01/2025 11:59 PM EDT Hospital Encounter Radiology Department - [address] [phone] RUQ pain Discharge Disposition: Home or Self Care 03/30/2025 2:00 PM EDT Office Visit Adult [address] [phone] Tyrell Amezquita PA Hospital discharge follow-up (Primary Dx); Longstanding persistent atrial fibrillation (CMS/HCC V24, CMS/HCC V28); RUQ pain; Mixed hyperlipidemia; Pure hypercholesterolemia 03/23/2025 Telephone Adult [address] [phone] Tyrell Amezquita PA Hospital Follow-up from Last 3 Months Immunizations Name Administration Dates Next Due Influenza Quadravalent, MDCK , 0.5ml, preservative free (Flucelvax) 6mo and older 09/05/2023,12/11/2022 Influenza trivalent, 0.5mL, preservative free (Fluarix; FluLaval; Fluzone) ages 6mo and older (Afluria) 3 years and older 11/17/2024,08/26/2014,09/24/2012,2010 [place] SARS-CoV-2 COVID-19, mRNA, LNP-S, preservative free 01/28/2021,01/07/2021 [...] care for your loved ones. For example, exceptional children teacher or elderly care for an older adult? [...] Care Team (Late st Contact Info) Description 05/28/2025 2:20 PM EDT Consult Gastroenterology - [place] [address] [facility] [address] [facility] [address] [place] [id number] Adrianna Olea, BINH 175 [facility] [address] [place] [address] 06/03/2025 9:00 AM EDT Appointment [facility] Nuclear Medicine [address] [place] [address] 07/08/2025 12:00 PM EDT Office Visit Adult Medicine [facility] [address] [place] [address] Tyrell Amezquita PA [address] [place] [address] Health Maintenance Due Date Last Done Comments Hepatitis A Vaccines (1 of 2 - Risk 2-dose series) 1985 Hepatitis B Vaccines (1 of 3 - 19+ 3-dose series) 1985 Zoster Vaccines (1 of 2) 1985 Pneumococcal Vaccine: 50+ Years (1 of 1 - PCV) 2016 HIV Screening 10/21/2022 COVID-19 Vaccine ( season) 2024 10/02/2023, 11/08/2021, 01/28/2021, Additional history exists DTaP,Tdap,and Td Vaccines (3 - Td or Tdap) 12/11/2024 12/11/2014, 10/12/2004 Influenza Vaccine (#1) 2025 , 09/05/2023, 12/11/2022, Additional history exists Depression Screening 01/12/2026 01/12/2025 Social Influencers of Health Screening 01/12/2026 01/12/2025 Colorectal Cancer Screening: Colonoscopy 01/31/2029 02/01/2024 Cholesterol Screening (Lipid Panel) 04/15/2030 04/15/2025, 09/26/2023 Hepatitis C Screening Completed 12/12/2022 HIB Vaccines Aged Out No longer eligi [...] CT REPORT 03/21/[address] REPORT 03/21/2025 HEPATITIS C SCREENING Routine 12/12/2022 from Last 3 Months or Most Recently Relevant to Health Maintenance Results * Prostate specific antigen screen (04/15/2025 8:01 AM EDT) PSA 1.02 0.00 - 4.00 ng/mL LAB CHEMISTRY METHOD 04/15/2025 11:50 AM EDT [facility] Blood Venous blood specimen / Unknown Venipuncture / Unknown 04/15/2025 8:01 AM EDT 04/15/2025 8:01 AM EDT Narrative [facility] - 04/15/2025 11:50 AM EDT The Siemens Advia Centaur Chemiluminescent Immunoassay is used. Results obtained with different assay methods or kits cannot be used interchangeably. Results cannot be interpreted as absolute evidence of the presence or absence of malignant disease. us Tyrell WADDELL LAB BLOOD ORDERABLES Esther lozada Result [facility] [address] [place] [address], * (ABNORMAL) Lipid panel with reflex to direct LDL (04/15/2025 8:01 AM EDT) Cholesterol 199 0 - 200 mg/dL LAB CHEMISTRY METHOD 04/15/2025 11:02 AM [facility] Triglycerides 160(H) 0 - 150 mg/dL LAB CHEMISTRY METHOD 04/15/2025 11:02 AM [facility] HDL 45 >=40 mg/dL LAB CHEMISTRY METHOD 04/15/2025 11:02 AM [facility] LDL Calculated 122(H) 0 - 100 mg/dL LAB CHEMISTRY METHOD 04/15/2025 11:02 AM [facility] VLDL Cholesterol Aries 32 mg/dL LAB CHEMISTRY METHOD 04/15/2025 11:02 AM [facility] Non HDL Chol. (LDL+VLDL) 154(H) <145 mg/dL LAB CHEMISTRY METHOD 04/15/2025 11:02 AM [facility] Chol/HDL Ratio 4.4 0.0 - 4.4 LAB CHEMISTRY METHOD 04/15/2025 11:02 AM [facility] Blood Venous blood specimen / Unknown Venipuncture / Unknown 04/15/2025 8:01 AM EDT 04/15/2025 8:01 AM EDT Tyrell WADDELL LAB BLOOD ORDERABLES Esther lozada Result [facility] [address] [place] [address], * (ABNORMAL) CBC auto differential (04/15/2025 8:01 AM EDT) [facility] Signature WBC 5.4 4.8 - 10.8 K/mcL LAB HEMETOLOGY METHOD 04/15/2025 10:58 AM EDT [facility] RBC 5.10 4.50 - 5.50 M/mcL LAB HEMETOLOGY METHOD [facility]25 10[facility] Hemoglobin 15.1 13.5 - 17.5 g/dL LAB HEMETOLOGY METHOD 04/15/2025 10:58 AM [facility] Hematocrit 45.0 42.0 - 54.0 % LAB HEMETOLOGY METHOD 04/15/2025 10:58 AM [facility] MCV 88.4 79.0 - 98.0 FL LAB HEMETOLOGY METHOD 04/15/2025 10:58 [facility] MCH 29.7 27.0 - 32.0 pcg LAB HEMETOLOGY METHOD 04/15/2025 10:58 AM [facility] MCHC 33.6 32.0 - 37.0 g/dL LAB HEMETOLOGY METHOD 04/15/2025 10:58 AM [facility] RDW 12.7 11.0 - 15.0 % LAB HEMETOLOGY METHOD 04/15/2025 10:58 AM [facility] Platelets 277 130 - 400 K/mcL LAB HEMETOLOGY METHOD 04/15/2025 10:58 AM [facility] MPV 11.1(H) 7.0 - 11.0 FL LAB HEMETOLOGY METHOD 04/15/2025 10:58 AM [facility] NRBC 0.0 <1.0 % LAB HEMETOLOGY METHOD 04/15/2025 10:58 AM [facility] NRBC Absolute 0.00 <0.10 K/mcL LAB HEMETOLOGY METHOD 04/15/2025 10:58 AM [facility] Neutrophils Relative 48.3 % LAB HEMETOLOGY METHOD 04/15/2025 10:58 AM [facility] Lymphocytes Relative 35.3 % LAB HEMETOLOGY METHOD 04/15/2025 10:58 AM [facility] Monocytes Relative 10.3 % LAB HEMETOLOGY METHOD 04/15/2025 10:58 AM [facility] Eosinophils Relative 4.8 % LAB HEMETOLOGY METHOD 04/15/2025 10:58 AM [facility] Basophils Relative 0.9 % LAB HEMETOLOGY METHOD 04/15/2025 10:58 AM [facility] Immature Granulocytes Relative 0.4 % LAB HEMETOLOGY METHOD 04/15/2025 10:58 AM [facility] Neutrophils Absolute 2.63 1.50 - 7.00 K/mcL LAB HEMETOLOGY METHOD 04/15/2025 10:58 AM [facility] Lymphocytes Absolute 1.92 1.00 - 5.00 K/mcL LAB HEMETOLOGY METHOD 04/15/2025 10:58 AM [facility] Monocytes Absolute 0.56 0.20 - 1.00 K/mcL LAB HEMETOLOGY METHOD 04/15/2025 10:58 AM [facility] Eosinophils Absolute 0.26 0.00 - 0.50 K/mcL LAB HEMETOLOGY METHOD 04/15/2025 10:58 AM EDT [facility] Basophils Absolute 0.05 0.00 - 0.20 K/[facility] LAB HEMETOLOGY METHOD 04/15/2025 10:58 AM EDT [facility] Immature Granulocytes Absolute 0.02 0.00 - 0.03 K/[facility] LAB HEMETOLOGY METHOD 04/15/2025 10:58 AM EDT [facility] Blood Venous blood specimen / Unknown Venipuncture / Unknown 04/15/2025 8:01 AM EDT 04/15/2025 8:01 AM EDT Tyrell WADDELL LAB BLOOD ORDERABLES Esther l Result Performing Organization Address [facility]/ZIP Co de Phone Number [facility] [address] [place] [address], [place] [phone] * Culture urine (04/15/2025 8:01 AM EDT) Pathologist [facility] Culture, Urine No growth 04/16/2025 8:40 AM EDT [facility] Urine Urine specimen obtained by clean catch procedure / Unknown Non-blood Collection / Unknown 04/15/2025 8:01 AM EDT 04/15/2025 8:01 AM EDT Tyrell WADDELL LAB MICROBIOLOGY - GENERA L ORDERABLES Final Result [facility] [address] [place] [address], [place] [phone] * (ABNORMAL) Comprehensive metabolic panel (04/15/2025 8:01 AM EDT) Sodium 136 133 - 145 mmol/L LAB CHEMISTRY METHOD 04/15/2025 11:02 AM EDT [facility] Potassium 3.8 3.5 - 5.5 mmol/L LAB CHEMISTRY METHOD 04/15/2025 11:02 AM [facility] Chloride 102 96 - 110 mmol/L LAB CHEMISTRY METHOD 04/15/2025 11:02 AM [facility] CO2 27 21 - 32 mmol/L LAB CHEMISTRY METHOD 04/15/2025 11:02 AM [facility] Anion Gap 7 3 - 11 LAB CHEMISTRY METHOD 04/15/2025 11:02 AM [facility] Glucose 112(H) 70 - 100 mg/dL LAB CHEMISTRY METHOD 04/15/2025 11:02 AM [facility] BUN 16 5 - 25 mg/dL LAB CHEMISTRY METHOD 04/15/2025 11:02 AM [facility] Creatinine 0.96 0.70 - 1.30 mg/dL LAB CHEMISTRY METHOD 04/15/2025 11:02 AM [facility] eGFR 92 >=60 mL/min/1. 73m2 LAB CHEMISTRY METHOD 04/15/2025 11:02 AM [facility] Comment:Calculation based on the Chronic Kidney Disease Epidemiology Collaboration (CKD-EPI) equation refit without adjustment for race. BUN/Creatinine Ratio 16.7 LAB CHEMISTRY METHOD 04/15/2025 11:02 AM [facility] Calcium 9.4 8.5 - 10.5 mg/dL LAB CHEMISTRY METHOD 04/15/2025 11:02 AM [facility] AST (SGOT) 20 10 - 42 unit/L LAB CHEMISTRY METHOD 04/15/2025 11:02 AM [facility] ALT (SGPT) 38 10 - 60 unit/L LAB CHEMISTRY METHOD 04/15/2025 11:02 AM [facility] Alkaline Phosphatase 75 42 - 121 unit/L LAB CHEMISTRY METHOD 04/15/2025 11:02 AM [facility] Total Protein 7.5 6.0 - 8.0 g/dL LAB CHEMISTRY METHOD 04/15/2025 11:02 AM EDT [facility] Albumin 4.3 3.2 - 5.0 g/dL LAB CHEMISTRY METHOD 04/15/2025 11:02 AM EDT [facility] Total Bilirubin 1.1 0.0 - 1.4 mg/dL LAB CHEMISTRY METHOD 04/15/2025 11:02 AM EDT [facility] Blood Venous blood specimen / Unknown Venipuncture / Unknown 04/15/2025 8:01 AM EDT 04/15/2025 8:01 AM EDT Tyrell WADDELL LAB BLOOD ORDERABLES Esther lozada Result [facility] [address] [place] [address], [place] [phone] * US Abdomen Limited (04/01/2025 8:07 AM EDT) Anatomical Region Laterality Modality Body Ultrasound 04/01/2025 9:39 AM EDT Impressions 04/01/2025 9:42 AM EDT Hepatic cysts. Gallbladder is unremarkable. -------- FINAL REPORT -------- Dictated By: Deborah Rosenthal Dictated Date: 04/01/2025 09:39 ET Assigned Physician: Deborah Rosenthal Reviewed and Electronically Signed By: Deborah Rosenthal Signed Date: 04/01/2025 09:42 ET Workstation ID: [id number] Transcribed By: Self Edit Transcribed Date: 04/01/2025 [...] Dictated Date: 04/01/2025 09:39 ET Assigned Physician: Deborha Rosenthal Reviewed and Electronically Signed By: Deborah Rosenthal Signed Date: 04/01/2025 09:42 ET Workstation ID: [id number] Transcribed By: Self Edit Transcribed Date: 04/01/2025 09:39 ET us Tyrell D [place] PA IMG US PROCEDURES Final R esult * External CT Report (03/21/2025) Only the most recent of2 resultswithin the time period is included. Anatomical Region Laterality Modality Computed Tomogra phy us Provider [facility] IMG CT PROCEDURES Final Result * Hepatitis C Screening (12/12/2022) Hepatitis C Screening abstracted Historical Provider HEALTH MAINTENANCE Final Result from Last 3 Months or Most Recently Relevant to Health Maintenance Insurance [facility] Care Teams Crop Picker Relationship Specialty Start Date End Date Tyrell Amezquita PA [address] [place] [address] PCP - General Internal Medicine 04/27/21
== END ==
LOC: HO.CARD 08:44
PROVIDERS: Visit Provider Internal Medicine Cardiovascular Disease
DX: I48.91 Unspecified atrial fibrillation (principal); R07.9 Chest pain, unspecified
CPT/HCPCS: 93017; 93306

== ENCOUNTER → 2025-05-26 08:47 | Outpatient (BNV) | payer BC, SELFPAY | DX: I35.1 Nonrheumatic aortic (valve) insufficiency (principal) | CPT/HCPCS: 93016; 93018; 93320; 93350 ==

== ENCOUNTER → 2025-06-08 09:47 | Outpatient (REF) | payer BC, SELFPAY ==
--- OUTSIDE RECORDS SUMMARY | 2025-06-08 10:44 | XMS_ITS | Continuity of Care Document ---
Author Name [facility] Organization [facility] Care Team Providers Care Stone Operator Name Role Phone [facility] Unavailable Unavailable Problems Combined list of problems from Department of Defense and Veterans Affairs facilities. It does not include entries that were removed or entered in error. Problem Status Onset Date Problem Type Date of Resolution Comments Source Hypercholesterolemia Active 11/12/19 23 Condition [facility] Alcohol dependence Active Condition A 2022 Entered By: TAYLER ESTEVEZ Comment: Alcohol Use Disorder, Severe [facility] [place] [facility] Anxiety disorder Active Condition Mar 06, 2022 Entered By: MELANIE BANKS Comment: updated. [facility] Moderate alcohol dependence Active Condition Jan 19, 2023 Entered By: MELANIE BANKS Comment: updated. [facility] Medications Combined list of outpatient medications from Department of Defense and Veterans Affairs facilities.Medications provided include 1) outpatient medications from the last 15 months, and 2) patient-reported medications. Medication Details Route Status Patient Instructions Prescription Expires Prescription Number Last Dispense Date Ordering Provider Order Date Order Qty Source LORAZEPAM 0.5MG TAB TAKE ONE TABLET BY MOUTH TWICE DAILY NEEDED FOR ANXIETY ORAL 12/28/2024 [id number] 5 Lyndon KO 2024 6 [place] Immunizations Combined list of available immunizations from the Department of Defense and Veterans Affairs facilities. Immunization Series Date Given Administered By Site Reaction Lot Number CVX Code Drug Unemployment Insurance Hearing Officer Status Comments Source COVID-19 (PFIZER), MRNA, LNP-S, PF, 30 MCG/0.3 ML DOSE 2 2020 208 complet ed PFR; [id number]; 1 [facility] COVID-19 (PFIZER), MRNA, LNP-S, PF, 30 MCG/0.3 ML DOSE 1 2020 208 complet ed PFR; [id number]; 1 [facility] FLU,3 YRS (HISTORICAL) 2013 88 complet ed Partner: [employer] . Administe red by: TOM MENDOZA (LSL=[phone]). Partner 1 [facility] Encounters Combined list of: 1) Encounters from Department of Veterans Affairs facilities going backup to the last 18 months, not all [place] inpatient encounters are included; 2) Encounters from the Department of [employer] facilities going backup to 280 months. Location Location Details Encounter Type Encounter Number Reason For Visit Attending Provider ADM Date DC Date Status Disposition Source [facility] Outpatient Encounter [id number] 01/07 [facility]counter [id number] 01/19 [facility] Out[facility]counter [id number] 01/28 [facility] Encounter [id number] 01/30 [facility] [place] Outpatient Encounter [id number] 03/11 [place] [facility] Outpatient Encounter [id number] 05/28 [facility] Encounter [id number] 05/28 [facility] Encounter [id number] 05/30 [facility] Outpatient [facility]counter [id number] 10/14 [facility] Encounter [id number] 11/17 [facility]counter [id number] 11/28 [facility] Outpatient Encounter [id number] 02/23 [facility] [place] [facility] Procedures Combined list of: 1) Procedures from Department of Veterans Affairs facilities going back up to thelast 18 months, not all [place] non-surgical procedures are included; 2) All procedures [...] smoking status NHIS VA-TOBACCO NEVER USED 05/28/2023 [facility] D History of tobacco use [place]-TO[place]ACCO NEVER USED 03/06/2022 [facility] D History of tobacco use VA-TOBACCO NEVER USED 01/20/2021 [facility] D History of tobacco use [place]-TOBACCO NEVER USED 09/18/2018 [facility] D History of tobacco use LIFETIME NON-TOBACCO USER 10/11/2017 [place] History of tobacco use LIFETIME NON-TOBACCO USER 10/19/2016 [place] History of tobacco use LIFETIME NON-TOBACCO USER 03/03/2015 [facility] This section is an empty social history section. [facility] Plan of Care List of future care activities from Department of Veterans Affairs facilities. Additional future care activities may be listed in the Assessment and Plan section. Date/Time Care Activity Care Activity Detail Facili ty 06/25/2025 AMBULATORY - MEDICINE [facility]
--- OUTSIDE RECORDS SUMMARY | 2025-06-08 10:45 | XMS_ITS | Clinical Summary ---
Author Organization [facility] [address] [facility] Address [address] [place] [address] Phone Care Team Providers Care Rake Operator Name Role Phone Tyrell Amezquita Primary Care Provider [phone] Allergies Active Allergy Reactions Criticality Noted Date [...] Overview (11/03/2024): Please schedule any MRI at [facility]. Pure hypercholesterolemia 07/04/2006 Infectious mononucleosis 07/04/2006 Encounters Date Type Department Care Team Description 04/10/2025 Telephone Adult Medicine [facility] - [address] [phone] Tyrell Amezquita PA lab order 04/01/2025 7:33 AM EDT - 04/01/2025 11:59 PM EDT Hospital Encounter Radiology Department - [address] [phone] RUQ pain Discharge Disposition: Home or Self Care 03/30/2025 2:00 PM EDT Office Visit Adult [address] [phone] Tyrell Amezquita PA Hospital discharge follow-up (Primary Dx); Longstanding persistent atrial fibrillation (CMS/HCC V24, CMS/HCC V28); RUQ pain; Mixed hyperlipidemia; Pure hypercholesterolemia 03/23/2025 Telephone Adult [address] [phone] Tyrell Amezquita PA Hospital Follow-up from Last 3 Months Immunizations Name Administration Dates Next Due Influenza Quadravalent, MDCK , 0.5ml, preservative free (Flucelvax) 6mo and older 09/05/2023,12/11/2022 Influenza trivalent, 0.5mL, preservative free (Fluarix; FluLaval; Fluzone) ages 6mo and older (Afluria) 3 years and older 11/17/2024,08/26/2014,09/24/2012,2010 Tangler SARS-CoV-2 COVID-19, mRNA, LNP-S, preservative free 01/28/2021,01/07/2021 [...] care for your loved ones. For example, child day care provider or elderly care for an older adult? [...] Care Team (Late st Contact Info) Description 07/08/2025 12:00 PM EDT Office Visit Adult Medicine [facility] [address] [place] [phone] Tyrell Amezquita PA [address] [place] [address] Health Maintenance Due Date Last Done Comments Hepatitis A Vaccines (1 of 2 - Risk 2-dose series) 1985 Hepatitis B Vaccines (1 of 3 - 19+ 3-dose series) 1985 Zoster Vaccines (1 of 2) 1985 Pneumococcal Vaccine: 50+ Years (1 of 1 - PCV) 2016 HIV Screening 10/21/2022 COVID-19 Vaccine (5 - season) 2024 10/02/2023, 11/08/2021, 01/28/2021, Additional history exists DTaP,Tdap,and Td Vaccines (3 - Td or Tdap) 12/11/2024 12/11/2014, 10/12/2004 Influenza Vaccine (#1) 2025 , 09/05/2023, 12/11/2022, Additional history exists Social Influencers of Health Screening 01/12/2026 01/12/2025 Colorectal Cancer Screening: Colonoscopy 01/31/2029 02/01/2024 Cholesterol Screening (Lipid Panel) 04/15/2030 04/15/2025, 09/26/2023 Hepatitis C Screening Completed 12/12/2022 Depression Screening Completed 01/12/2025 HIB Vaccines Aged Out No longer eligi [...] LAB CHEMISTRY METHOD 04/15/2025 11:50 AM EDT [facility] Blood Venous blood specimen / Unknown Venipuncture / Unknown 04/15/2025 8:01 AM EDT 04/15/2025 8:01 AM EDT [facility] - 04/15/2025 11:50 AM EDT The Siemens Advia Centaur Chemiluminescent Immunoassay is used. Results obtained with different assay methods or kits cannot be used interchangeably. Results cannot be interpreted as absolute evidence of the presence or absence of malignant disease. Tyrell WADDELL LAB BLOOD ORDERABLES Esther l Result [facility] [address] [place] [address], [place] [phone] * (ABNORMAL) Lipid panel with reflex to direct LDL (04/15/2025 8:01 AM EDT) Cholesterol 199 0 - 200 mg/dL LAB CHEMISTRY METHOD 04/15/2025 11:02 AM EDT [facility] Triglycerides 160(H) 0 - 150 mg/dL LAB CHEMISTRY METHOD 04/15/2025 11:02 AM [facility] HDL 45 >=40 mg/dL LAB CHEMISTRY METHOD 04/15/2025 11:02 AM [facility] LDL Calculated 122(H) 0 - 100 mg/dL LAB CHEMISTRY METHOD [facility]2025 [facility] VLDL Cholesterol Aries 32 mg/dL LAB CHEMISTRY METHOD 04/15/2025 11:02 AM [facility] Non HDL Chol. (LDL+VLDL) 154(H) <145 mg/dL LAB CHEMISTRY METHOD 04/15/2025 11:02 AM [facility] Chol/HDL Ratio 4.4 0.0 - 4.4 LAB CHEMISTRY METHOD 04/15/2025 11:02 AM [facility] Blood Venous blood specimen / Unknown Venipuncture / Unknown 04/15/2025 8:01 AM EDT 04/15/2025 8:01 AM EDT Tyrell WADDELL LAB BLOOD ORDERABLES Esther l Result [facility] [address] [place] [address], [place] [phone] * (ABNORMAL) CBC auto differential (04/15/2025 8:01 AM EDT) [facility] WBC 5.4 4.8 - 10.8 K/mcL LAB HEMETOLOGY METHOD 04/15/2025 10:58 AM EDT [facility] RBC 5.10 4.50 - 5.50 M/mcL LAB HEMETOLOGY METHOD 04/15[facility]2025 10:[facility] Hemoglobin 15.1 13.5 - 17.5 g/dL LAB HEMETOLOGY METHOD 04/15/2025 10:58 [facility] Hematocrit 45.0 42.0 - 54.0 % LAB HEMETOLOGY METHOD 04/15/2025 10:58 AM [facility] MCV 88.4 79.0 - 98.0 FL LAB HEMETOLOGY METHOD 04/15/2025 10:58 AM [facility] MCH 29.7 27.0 - 32.0 pcg LAB HEMETOLOGY METHOD 04/15/2025 10:58 AM [facility] MCHC 33.6 32.0 - 37.0 g/dL LAB HEMETOLOGY METHOD 04/15/2025 10:58 AM [facility] RDW 12.7 11.0 - 15.0 % LAB HEMETOLOGY METHOD 04/15/2025 10:58 AM [facility] Platelets 277 130 - 400 K/mcL LAB HEMETOLOGY METHOD 04/15/2025 10:58 AM [facility] MPV 11.1(H) 7.0 - 11.0 FL LAB HEMETOLOGY METHOD 04/15/2025 10:58 [facility] NRBC 0.0 <1.0 % LAB HEMETOLOGY METHOD 04/15/2025 10:58 AM [facility] NRBC Absolute 0.00 <0.10 K/mcL LAB HEMETOLOGY METHOD 04/15/2025 10:58 AM [facility] Neutrophils Relative 48.3 % LAB HEMETOLOGY METHOD 04/15/2025 10:58 AM [facility] Lymphocytes Relative 35.3 % LAB HEMETOLOGY METHOD 04/15/2025 10:58 AM [facility] Monocytes Relative 10.3 % LAB HEMETOLOGY METHOD 04/15/2025 10:58 AM [facility] Eosinophils Relative 4.8 % LAB HEMETOLOGY METHOD 04/15/2025 10:58 AM [facility] Basophils Relative 0.9 % LAB HEMETOLOGY METHOD 04/15/2025 10:58 AM [facility] Immature Granulocytes Relative 0.4 % LAB HEMETOLOGY METHOD 04/15/2025 10:58 AM [facility] Neutrophils Absolute 2.63 1.50 - 7.00 K/mcL LAB HEMETOLOGY METHOD 04/15/2025 10:58 AM [facility] Lymphocytes Absolute 1.92 1.00 - 5.00 K/mcL LAB HEMETOLOGY METHOD 04/15/2025 10:58 AM [facility] Monocytes Absolute 0.56 0.20 - 1.00 K/mcL LAB HEMETOLOGY METHOD 04/15/2025 10:58 AM [facility] Eosinophils Absolute 0.26 0.00 - 0.50 K/mcL LAB HEMETOLOGY METHOD 04/15/2025 10:58 AM [facility] Basophils Absolute 0.05 0.00 - 0.20 K/mcL LAB HEMETOLOGY METHOD 04/15/2025 10:58 AM [facility] Immature Granulocytes Absolute 0.02 0.00 - 0.03 K/mcL LAB HEMETOLOGY METHOD 04/15/2025 10:58 AM [facility] Blood Venous blood specimen / Unknown Venipuncture / Unknown 04/15/2025 8:01 AM EDT 04/15/2025 8:01 AM EDT Tyrell WADDELL LAB BLOOD ORDERABLES Esther l Result [facility] [address] [place] [address], [place] [phone] * Culture urine (04/15/2025 8:01 AM EDT) Pathologist [facility] Culture, Urine No growth 04/16/2025 8:40 AM EDT [facility] Urine Urine specimen obtained by clean catch procedure / Unknown Non-blood Collection / Unknown 04/15/2025 8:01 AM EDT 04/15/2025 8:01 AM EDT Tyrell WADDELL LAB MICROBIOLOGY - GENERA L ORDERABLES Final Result Performing Organization Address City/[facility]/ZIP Co de Phone Number [facility] [address] [place] [address], [place] [phone] * (ABNORMAL) Comprehensive metabolic panel (04/15/2025 8:01 AM EDT) Sodium 136 133 - 145 mmol/L LAB CHEMISTRY METHOD 04/15/2025 11:02 AM EDT [facility] Potassium 3.8 3.5 - 5.5 mmol/L LAB CHEMISTRY METHOD 04/15/2025 11:02 AM [facility] Chloride 102 96 - 110 mmol/L LAB CHEMISTRY METHOD 04/15/2025 11:02 AM [facility] CO2 27 21 - 32 mmol/L LAB CHEMISTRY METHOD 04/15/2025 11:02 AM [facility] Anion Gap 7 3 - 11 LAB CHEMISTRY METHOD 04/15/2025 11:02 AM EDT [facility] Glucose 112(H) 70 - 100 mg/dL LAB CHEMISTRY METHOD 04/15/2025 11:02 AM [facility] BUN 16 5 - 25 mg/dL LAB CHEMISTRY METHOD 04/15/2025 11:02 AM [facility] Creatinine 0.96 0.70 - 1.30 mg/dL LAB CHEMISTRY METHOD 04/15/2025 11:02 AM [facility] eGFR 92 >=60 mL/min/1. 73m2 LAB CHEMISTRY METHOD 04/15/2025 11:02 AM [facility] Comment:Calculation based on the Chronic Kidney Disease Epidemiology Collaboration (CKD-EPI) equation refit without adjustment for race. BUN/Creatinine Ratio 16.7 LAB CHEMISTRY METHOD 04/15/2025 11:02 AM [facility] Calcium 9.4 8.5 - 10.5 mg/dL LAB CHEMISTRY METHOD 04/15/2025 11:02 AM [facility] AST (SGOT) 20 10 - 42 unit/L LAB CHEMISTRY METHOD 04/15/2025 11:02 AM [facility] ALT (SGPT) 38 10 - 60 unit/L LAB CHEMISTRY METHOD 04/15/2025 11:02 AM [facility] Alkaline Phosphatase 75 42 - 121 unit/L LAB CHEMISTRY METHOD 04/15/2025 11:02 AM [facility] Total Protein 7.5 6.0 - 8.0 g/dL LAB CHEMISTRY METHOD 04/15/2025 11:02 AM [facility] Albumin 4.3 3.2 - 5.0 g/dL LAB CHEMISTRY METHOD 04/15/2025 11:02 AM [facility] Total Bilirubin 1.1 0.0 - 1.4 mg/dL LAB CHEMISTRY METHOD 04/15/2025 11:02 AM [facility] Blood Venous blood specimen / Unknown Venipuncture / Unknown 04/15/2025 8:01 AM EDT 04/15/2025 8:01 AM EDT us Tyrell WADDELL LAB BLOOD ORDERABLES Esther lozada Result [facility] [address] [place] [address], [place] [phone] * US Abdomen Limited (04/01/2025 8:07 AM EDT) Anatomical Region Laterality Modality Body Ultrasound 04/01/2025 9:39 AM EDT Impressions 04/01/2025 9:42 AM EDT Hepatic cysts. Gallbladder is unremarkable. -------- FINAL REPORT -------- Dictated By: Deborah Rosenthal Dictated Date: 04/01/2025 09:39 ET Assigned Physician: Deborah Rosenthal Reviewed and Electronically Signed By: Deborah Rosenthal Signed Date: 04/01/2025 09:42 ET Workstation ID: [id number] Transcribed By: Self Edit Transcribed Date: 04/01/2025 [...] Signed Date: 04/01/2025 09:42 ET Workstation ID: [id number] Transcribed By: Self Edit Transcribed Date: 04/01/2025 09:39 ET Tyrell WADDELL G US PROCEDURES Final R esult * External CT Report (03/21/2025) Only the most recent of2 resultswithin the time period is included. Anatomical Region Laterality Modality Computed Tomogra phy Provider [facility] CT PROCEDURES Final Result * Hepatitis C Screening (12/12/2022) Hepatitis C Screening abstracted Historical Provider HEALTH MAINTENANCE Final Result from Last 3 Months or Most Recently Relevant to Health Maintenance Insurance [facility] Care Teams Rake Operator Relationship Specialty Start Date End Date Tyrell Amezquita PA [address] [place] [address] PCP - General Internal Medicine 04/27/21
== END ==
LOC: HO.SL 09:47
PROVIDERS: PCP Physician Assistant Medical; Visit Provider Internal Medicine Cardiovascular Disease
DX: R07.9 Chest pain, unspecified (principal); I48.91 Unspecified atrial fibrillation; R06.83 Snoring
CPT/HCPCS: 95806

== ENCOUNTER → 2025-06-08 10:29 | Outpatient (BNV) | payer BC, SELFPAY | PROVIDERS: PCP Physician Assistant Medical; Visit Provider Internal Medicine | DX: R06.83 Snoring (principal) | CPT/HCPCS: 95806 ==

== ENCOUNTER 2025-07-01 12:42 | Outpatient (AMB) | payer BC, SELFPAY ==
--- OUTSIDE RECORDS SUMMARY | 2025-06-26 08:24 | XMS_ITS | Encounter Summary ---
Author Name [facility] Organization [facility] Address [address] [place] [address] Support Name Relationship Address Phone ESTRELLITA NGUYEN Next of Kin [address] [facility] [place] [address] ESTRELLITA NGUYEN Emergency Contact [address] [facility] [place] [address] Insurance Providers: All historical and current [...] BASIC FAMIL Y Nov 14, 2009 [id number] [phone] Lyndon NGUYEN AVID PATIENT BCBS OF [facility] FEDERAL PREFERRED PROVIDER ORGANIZAT ION (PPO) BASIC SELF & FAMIL Y Nov 14, 2009 [id number] Lyndon NGUYEN AVID PATIENT [place] FEP PRESCRIPT ION Nov 12, 2010 [id number] Lyndon NGUYEN AVID PATIENT [place]-F EP BCBS PRESCRIPT ION FEP CAREM ARK Nov 12, 2010 [id number] [phone] Lyndon NGUYEN AVID PATIENT Selected Encounter This section includes the information on record at [place] for the Encounter. Date/Time Encounter Type Encounter Description Reason Pro vider Source Jun 26, 2025 12:24 PM Outpatient Encounter ADMIN PAT ACTIVTIES (MASNONCT) IHE Encounter Template Text not used by [place] Social History: Smoking Status (Most current) and Tobacco Use (All prior to encounter date) This section includes the most current, and the historical, smoking and tobacco- related health factors from the [place] facility where the Encounter took place. Current Smoking Status This section includes the most current smoking, or tobacco-related health factor, from the [place] facility where the Encounter took place. Date/Time Current Smoking Status Comment Lan fierro Mar 03, 2015 10:49 AM LIFETIME NON-TOBACCO USER [place] [facility] [place] [facility] Encounter Notes: All associated encounter notes This section contains the clinical notes associated to the Encounter. Date/Time Encounter Note(s) Provider Source Jun 26, 2025 12:24 PM ADMINISTRATIVE NOTE: LOCAL TITLE: CCC: SCHEDULING ADMINISTRATION STANDARD TITLE: ADMINISTRATIVE NOTE DATE OF NOTE: JUN 26, 2025@12:24:06 ENTRY DATE: JUN 26, 2025@12:24:07 AUTHOR: TAYO STEINER COSIGNER: URGENCY: STATUS: COMPLETED CCC: SCHEDULING ADMINISTRATION Has ADDENDA Caller Verification Call Back Number: [phone] Caller/Recipient Relation to Patient: Self Caller Name: GREGORIO NGUYEN Administrative Administrative Note Reason: Other Administrative Note Comments: IS REQUESTING TO CHANGE PROVIDERS. IS REQUESTING TO BE SEEN IN [facility]. WOULD LIKE A CALL BACK AT [phone] IMPORTANT: This note was created by [facility] Clinical Contact Center staff. Please do not alert the staff member by adding them as a signer for future communications. Alerts are not monitored by this user. 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
--- NOTE | 2025-07-01 13:07 | A.OFFVIS_ITS ---
Vital Signs 07/01/25 13:08 Height 5 ft 8 in Weight 174 lb 2.643 oz BMI 26.5 BP 124/68 Blood Pressure Location Lt brachial Position Sitting Pulse 55 Pulse Source Monitor Intake Visit Reasons: f/up testing Allergies No Known Allergies Allergy (Verified 03/21/25 11:27) Medication List - Last Reconciled 07/01/25 by Rishi Johnson MD acetaminophen 500 mg PO Q6H PRN apixaban (Eliquis) 5 mg PO BID flecainide 50 mg PO BID ibuprofen 400 mg PO Q8H PRN lorazepam 0.5 mg PO DAILY PRN meloxicam 7.5 mg PO DAILY PRN metoprolol tartrate 25 mg PO BID multivitamin 1 tab PO DAILY simvastatin 10 mg PO BEDTIME HPI Comments Details: Ellis returns for follow-up regarding atrial fibrillation. He apparently had atrial fibrillation about 8 years ago in the context of alcohol use. He has had occasional palpitations but nothing truly bothersome. Recently, he came to the hospital for rather right-sided chest pains. In that context, he was initially in sinus rhythm but then developed atrial fibrillation. He was going in and out of atrial fibrillation. He was put on diltiazem drip and then flecainide was added. He converted to sinus rhythm. He is now on metoprolol/flecainide. Overall, he is doing fine. No new concerns. He has completed an echocardiogram, stress test and Holter monitor. [facility] Medical History (Updated 05/26/25 @ 12:03 by Martín Albright NP) Afib Family History (Updated 03/22/25 @ 10:37 by Rishi Johnson MD) Father Hx of heart surgery Social History Household Members: Family Housing: House Do you presently have visiting nurse or other home services: No Patient Tobacco Use Status: Never used Tobacco service: No Review of Systems Const Denies weakness ENT Denies dizziness Card Denies chest pain, Denies chest pain with activity, Denies syncope, Denies rapid heart rate, Denies pedal edema, Denies edema, Denies leg edema, Denies lightheadedness, Denies palpitations, Denies dyspnea, Denies dyspnea on exertion and Denies orthopnea Resp Denies cough, Denies dyspnea and Denies dyspnea on exertion GI Denies hematochezia and Denies change in stool character Musc Denies abnormal gait, Denies muscle cramps, Denies muscle weakness, Denies numbness, Denies radiating pain into limb and Denies tingling Neuro Denies abnormal gait, Denies dizziness, Denies syncope, Denies numbness, Denies tingling and Denies weakness Endo Denies palpitations Physical Exam Vital Signs: Last Vital Signs Pulse 55 07/01/25 13:08 BP 124/68 07/01/25 13:08 BMI result Body Mass Index 26.5 Const General: comfortable and no acute distress Orientation/consciousness: patient oriented x3 HEENT Other: Unremarkable Head: Yes normal to inspection Neck Neck: Yes normal visual inspection Chest Chest palpation & inspection: normal inspection of the chest Resp Auscultation: clear to auscultation bilaterally Cardio Palpation: normal PMI Heart sounds: S1 normal heart sound present, S2 normal heart sound present, no gallops, no murmurs and no rubs GI Palpation (GI): Soft to palpation Back/Spine/Pelvis Other: unremarkable Skin General skin exam: no rashes or lesions noted Neuro General: patient oriented x3 Extrem General: Yes normal to inspection Psych Mental Status: mental status grossly normal Office Procedures EKG Details: EKG with sinus bradycardia at 55/Min; rightward axis; no ischemic changes; [place] [id number]-[id number], Complete Assessment & Plan Assessment & Plan (1) Paroxysmal atrial fibrillation: Code(s): I48.0 - Paroxysmal atrial fibrillation Category: Medical (2) Encounter for monitoring flecainide therapy: Code(s): Z51.81 - Encounter for therapeutic drug level monitoring; Z79.899 - Other joint terminal attack controller (current) drug therapy Category: Medical Plan Recent EKG showed atrial fibrillation with rapid rates. Then, in sinus rhythm. Echocardiogram with LVEF of 65%. No wall motion abnormalities and otherwise unremarkable. In the Holter monitor, underlying rhythm is sinus with an average rate of 63/Min. Rare supraventricular/ventricular ectopy. In the stress test, he is able to reach 12.4 METS on Rick protocol. No angina. There was concern for ischemic ST-T changes and hence a coronary CTA has been ordered. With regard to medications, he is stable on the current regimen including metoprolol/flecainide/Eliquis. He had some dizziness with diltiazem. We discussed about further strategies including maintaining long-term antiarrhythmic therapy versus referral for EP evaluation/ablation. He is interested in pursuing ablation options and hence we will refer to EP. He can continue the current medications or changes. We should be able to stop the flecainide and anticoagulation post ablation and possibly just keep on some metoprolol long-term. With regard to alcohol use, advised him to cut back. Discussion Notes I discussed with the patient the option of an ablation procedure for atrial fibrillation, explaining that it could potentially eliminate the need for flecainide and apixaban. We also talked about the CAT scan to rule out coronary artery disease, emphasizing that the likelihood of a significant finding is low given his lack of chest pain. I advised him to reduce alcohol consumption to help manage his atrial fibrillation. Patient was informed and verbally consented to the use of an ambient scribe for clinic note documentation during this visit. Orders: Referrals Cardiac Electrophysiology Referral I48.0 - Paroxysmal atrial fibrillation Patient Instructions: - Follow up with the paper ruler for potential ablation procedure. - Attend the scheduled CAT scan appointment to rule out coronary artery disease. - Limit alcohol intake to prevent exacerbation of atrial fibrillation. Coding Level of Care Code Est Pt Level 4 (19786) Complex EM visit Add On G2211 Diagnoses Paroxysmal atrial fibrillation I48.0 Encounter for monitoring flecainide therapy Z51.81; Z79.899 CPT Codes EKG - CPT: 31154-[id number], Complete ([id number])
[2025-07-01 13:08] VITALS: BP 124/68; PULSE 55; BMI 26.5
--- OUTSIDE RECORDS SUMMARY | 2025-07-01 13:33 | XMS_ITS | Clinical Summary ---
Author Organization [facility] [address] [facility] Address [address] [place] [address] Phone Care Team Providers Care Remote Sensing Technologist Name Role Phone Tyrell Amezquita Primary Care Provider [phone] [phone] Allergies Active Allergy Reactions Criticality Noted Date [...] Max Daily Amount: 1.5 mg 30 tablet 05/14/2025 Active Active Problems Problem Noted Date Diagnosed [...] Overview (11/03/2024): Please schedule [facility] MRI at [facility]. Pure hypercholesterolemia 07/04/2006 Infectious mononucleosis 07/04/2006 Encounters Date Type Department Care Team Description 04/10/2025 Telephone Adult Medicine East - [address] [phone] Tyrell Amezquita PA lab order 04/01/2025 7:33 AM EDT - 04/01/2025 11:59 PM EDT Hospital Encounter Radiology Department - [address] [phone] RUQ pain Discharge Disposition: Home or Self Care from Last 3 Months Immunizations Name Administration Dates Next Due Influenza Quadravalent, MDCK , 0.5ml, preservative free (Flucelvax) 6mo and older 09/05/2023,12/11/2022 Influenza trivalent, 0.5mL, preservative free (Fluarix; FluLaval; Fluzone) ages 6mo and older (Afluria) 3 years and older 11/17/2024,08/26/2014,09/24/2012,2010 Pfizer SARS-CoV-2 COVID-19, mRNA, LNP-S, preservative free 01/28/2021,01/07/2021 [...] Record ed Within the last 3 months, ho w many times did you visit the emergency [...] care for your loved ones. For example, children's book author or elderly care for an older adult? [...] 12:00 PM EDT Office Visit Adult Medicine [facility] [address] [place] [address] Tyrell Amezquita PA [address] [place] [address] Health Maintenance Due Date Last Done Comments Hepatitis A Vaccines (1 of 2 - Risk 2-dose series) 1985 Hepatitis B Vaccines (1 of 3 - 19+ 3-dose series) 1985 Zoster Vaccines (1 of 2) 1985 Pneumococcal Vaccine: 50+ Years (1 of 1 - PCV) 2016 HIV Screening 10/21/2022 COVID-19 Vaccine ( - season) 2024 10/02/2023, 11/08/2021, 01/28/2021, Additional history exists DTaP,Tdap,and Td Vaccines (3 - Td or Tdap) 12/11/2024 12/11/2014, 10/12/2004 Influenza Vaccine (#1) 2025 , 09/05/2023, 12/11/2022, Additional history exists Social Influencers of Health Screening 01/12/2026 01/12/2025 Colorectal Cancer Screening: Colonoscopy 01/31/2029 02/01/2024 Cholesterol Screening (Lipid Panel) 04/15/2030 04/15/2025, 09/26/2023 RSV Immunization Adult Patients (1 - 1-dose 75+ series) 2041 Hepatitis C Screening Completed 12/12/2022 Depression Screening [...] 04/01/2025 8: 07 AM EDT RUQ pain HEPATITIS C SCREENING Routine 12/12/2022 from Last 3 Months or Most Recently Relevant to Health Maintenance Results * Prostate specific antigen screen (04/15/2025 8:01 AM EDT) PSA 1.02 0.00 - 4.00 ng/mL LAB CHEMISTRY METHOD 04/15/2025 11:50 AM EDT [facility] Blood Venous blood specimen / Unknown Venipuncture / Unknown 04/15/2025 8:01 AM EDT 04/15/2025 8:01 AM EDT Narrative [facility] - 04/15/2025 11:50 AM EDT The Siemens Advia Centaur Chemiluminescent Immunoassay is used. Results obtained with different assay methods or kits cannot be used interchangeably. Results cannot be interpreted as absolute evidence of the presence or absence of malignant disease. Tyrell WADDELL LAB BLOOD ORDERABLES Esther lozada Result [facility] [address] [place] [address], * (ABNORMAL) Lipid panel with reflex to direct LDL (04/15/2025 8:01 AM EDT) Cholesterol 199 0 - 200 mg/dL LAB CHEMISTRY METHOD 04/15/2025 11:02 AM EDT [facility] Triglycerides 160(H) 0 - 150 mg/dL LAB CHEMISTRY METHOD 04/15/2025 11:02 AM EDT [facility] HDL 45 >=40 mg/dL LAB CHEMISTRY METHOD 04/15/2025 11:02 AM EDT [facility] LDL Calculated 122(H) 0 - 100 mg/dL LAB CHEMISTRY METHOD 04/15/2025 11:02 AM EDT [facility] VLDL Cholesterol Aries 32 mg/dL LAB CHEMISTRY METHOD 04/15/2025 11:02 AM [facility] Non HDL Chol. (LDL+VLDL) 154(H) <145 mg/dL LAB CHEMISTRY METHOD 04/15/2025 11:02 AM EDT [facility] Chol/HDL Ratio 4.4 0.0 - 4.4 LAB CHEMISTRY METHOD 04/15/2025 11:02 AM T [facility] Blood Venous blood specimen / Unknown Venipuncture / Unknown 04/15/2025 8:01 AM EDT 04/15/2025 8:01 AM EDT us Tyrell WADDELL LAB BLOOD ORDERABLES Esther lozada Result [facility] [address] [place] [address], [place] [phone] * (ABNORMAL) CBC auto differential (04/15/2025 8:01 AM EDT) WBC 5.4 4.8 - 10.8 K/mcL LAB HEMETOLOGY METHOD 04/15/2025 10:58 AM [facility] RBC 5.10 4.50 - 5.50 M/[facility] LAB HEMETOLOGY METHOD 04/15/2025 10:58 AM [facility] Hemoglobin 15.1 13.5 - 17.5 g/dL LAB HEMETOLOGY METHOD 04/15/2025 10:58 AM [facility] Hematocrit 45.0 42.0 - 54.0 % LAB HEMETOLOGY METHOD 04/15/2025 10:58 AM [facility] MCV 88.4 79.0 - 98.0 FL LAB HEMETOLOGY METHOD 04/15/2025 10:58 AM [facility] MCH 29.7 27.0 - 32.0 pcg LAB HEMETOLOGY METHOD 04/15/2025 10:58 AM [facility] MCHC 33.6 32.0 - 37.0 g/dL LAB HEMETOLOGY METHOD 04/15/2025 10:58 AM [facility] RDW 12.7 11.0 - 15.0 % LAB HEMETOLOGY METHOD 04/15/2025 10:58 AM [facility] Platelets 277 130 - 400 K/mcL LAB HEMETOLOGY METHOD 04/15/2025 10:58 AM [facility] MPV 11.1(H) 7.0 - 11.0 FL LAB HEMETOLOGY METHOD 04/15/2025 10:58 AM [facility] NRBC 0.0 <1.0 % LAB HEMETOLOGY METHOD 04/15/2025 10:58 AM [facility] NRBC Absolute 0.00 <0.10 K/mcL LAB HEMETOLOGY METHOD 04/15/2025 10:58 AM [facility] Neutrophils Relative 48.3 % LAB HEMETOLOGY METHOD 04/15/2025 10:58 AM [facility] Lymphocytes Relative 35.3 % LAB HEMETOLOGY METHOD 04/15/2025 10:58 AM [facility] Monocytes Relative 10.3 % LAB HEMETOLOGY METHOD 04/15/2025 10:58 AM [facility] Eosinophils Relative 4.8 % LAB HEMETOLOGY METHOD 04/15/2025 10:58 AM [facility] Basophils Relative 0.9 % LAB HEMETOLOGY METHOD 04/15/2025 10:58 AM [facility] Immature Granulocytes Relative 0.4 % LAB HEMETOLOGY METHOD 04/15/2025 10:58 AM EDT [facility] Neutrophils Absolute 2.63 1.50 - 7.00 K/mcL LAB HEMETOLOGY METHOD 04/15/2025 10:58 AM EDT [facility] Lymphocytes Absolute 1.92 1.00 - 5.00 K/mcL LAB HEMETOLOGY METHOD 04/15/2025 10:58 AM EDT [facility] Monocytes Absolute 0.56 0.20 - 1.00 K/mcL LAB HEMETOLOGY METHOD 04/15/2025 10:58 AM EDT [facility] Eosinophils Absolute 0.26 0.00 - 0.50 K/[facility] LAB HEMETOLOGY METHOD 04/15/2025 10:58 AM EDT [facility] Basophils Absolute 0.05 0.00 - 0.20 K/mcL LAB HEMETOLOGY METHOD 04/15/2025 10:58 AM EDT [facility] Immature Granulocytes Absolute 0.02 0.00 - 0.03 K/mcL LAB HEMETOLOGY METHOD 04/15/2025 10:58 AM EDT [facility] Blood Venous blood specimen / Unknown Venipuncture / Unknown 04/15/2025 8:01 AM EDT 04/15/2025 8:01 AM EDT us Tyrell WADDELL LAB BLOOD ORDERABLES Esther l Result [facility] [address] [place] [address], * Culture urine (04/15/2025 8:01 AM EDT) Culture, Urine No growth 04/16/2025 8:40 AM EDT [facility] Urine Urine specimen obtained by clean catch procedure / Unknown Non-blood Collection / Unknown 04/15/2025 8:01 AM EDT 04/15/2025 8:01 AM EDT us Tyrell WADDELL LAB MICROBIOLOGY - GENERA L ORDERABLES Final Result [facility] [address] [place] [address], [place] [phone] * (ABNORMAL) Comprehensive metabolic panel (04/15/2025 8:01 AM EDT) Sodium 136 133 - 145 mmol/L LAB CHEMISTRY METHOD 04/15/2025 11:02 AM [facility] Potassium 3.8 3.5 - 5.5 mmol/L LAB CHEMISTRY METHOD 04/15/2025 11:02 AM [facility] Chloride 102 96 - 110 mmol/L LAB CHEMISTRY METHOD 04/15/2025 11:02 AM [facility] CO2 27 21 - 32 mmol/L LAB CHEMISTRY METHOD 04/15/2025 11:02 AM [facility] Anion Gap 7 3 - 11 LAB CHEMISTRY METHOD 04/15/2025 11:02 AM [facility] Glucose 112(H) 70 - 100 mg/dL LAB CHEMISTRY METHOD 04/15/2025 11:02 AM [facility] BUN 16 5 - 25 mg/dL LAB CHEMISTRY METHOD 04/15/2025 11:02 AM [facility] Creatinine 0.96 0.70 - 1.30 mg/dL LAB CHEMISTRY METHOD 04/15/2025 11:02 AM [facility] eGFR 92 >=60 mL/min/1. 73m2 LAB CHEMISTRY METHOD 04/15/2025 11:02 AM [facility] Comment:Calculation based on the Chronic Kidney Disease Epidemiology Collaboration (CKD-EPI) equation refit without adjustment for race. BUN/Creatinine Ratio 16.7 LAB CHEMISTRY METHOD 04/15/2025 11:02 AM [facility] Calcium 9.4 8.5 - 10.5 mg/dL LAB CHEMISTRY METHOD 04/15/2025 11:02 AM [facility] AST (SGOT) 20 10 - 42 unit/L LAB CHEMISTRY METHOD 04/15/2025 11:02 AM [facility] ALT (SGPT) 38 10 - 60 unit/L LAB CHEMISTRY METHOD 04/15/2025 11:02 AM [facility] Alkaline Phosphatase 75 42 - 121 unit/L LAB CHEMISTRY METHOD 04/15/2025 11:02 AM [facility] Total Protein 7.5 6.0 - 8.0 g/dL LAB CHEMISTRY METHOD 04/15/2025 11:02 AM [facility] Albumin 4.3 3.2 - 5.0 g/dL LAB CHEMISTRY METHOD 04/15/2025 11:02 AM [facility] Total Bilirubin 1.1 0.0 - 1.4 mg/dL LAB CHEMISTRY METHOD 04/15/2025 11:02 AM [facility] Blood Venous blood specimen / Unknown Venipuncture / Unknown 04/15/2025 8:01 AM EDT 04/15/2025 8:01 AM EDT us Tyrell WADDELL LAB BLOOD ORDERABLES Esther l Result [facility] [address] [place] [address], * US Abdomen Limited (04/01/2025 8:07 AM EDT) Anatomical Region Laterality Modality Body Ultrasound 04/01/2025 9:39 AM EDT Impressions 04/01/2025 9:42 AM EDT Hepatic cysts. Gallbladder is unremarkable. -------- FINAL REPORT -------- Dictated By: Deborah Rosenthal Dictated Date: 04/01/2025 09:39 ET Assigned Physician: Deborah Rosenthal Reviewed and Electronically Signed By: Deborah Rosenthal Signed Date: 04/01/2025 09:42 ET Workstation ID: [id number] Transcribed By: Self Edit Transcribed Date: 04/01/2025 [...] Signed Date: 04/01/2025 09:42 ET Workstation ID: [id number] Transcribed By: Self Edit Transcribed Date: 04/01/2025 09:39 ET Tyrell WADDELL IMG US PROCEDURES Final R esult * Hepatitis C Screening (12/12/2022) Hepatitis C Screening abstracted Historical Provider MD HEALTH MAINTENANCE Final Result from Last 3 Months or Most Recently Relevant to Health Maintenance Insurance [facility] Care Teams Remote Sensing Technologist Relationship Specialty Start Date End Date Tyrell Amezquita PA [address], [place] [phone] PCP - General Internal Medicine 04/27/21
== END 2025-07-01 13:31 | disposition home or self-care (01) ==
LOC: HO.HCS 12:43
PROVIDERS: PCP Physician Assistant Medical; Visit Provider Internal Medicine
DX: I48.0 Paroxysmal atrial fibrillation (principal); Z51.81 Encounter for therapeutic drug level monitoring; Z79.899 Other long term (current) drug therapy
CPT/HCPCS: 93010; 99214

== ENCOUNTER → 2025-07-01 12:42 | Outpatient (BNVA) | payer BC, SELFPAY | PROVIDERS: PCP Physician Assistant Medical; Visit Provider Internal Medicine | DX: I48.0 Paroxysmal atrial fibrillation (principal); Z51.81 Encounter for therapeutic drug level monitoring; Z79.899 Other long term (current) drug therapy | CPT/HCPCS: 93005 ==

== ENCOUNTER 2025-07-17 08:42 | Outpatient (REF) | payer BC, SELFPAY ==
--- OUTSIDE RECORDS SUMMARY | 2025-07-17 09:15 | XMS_ITS | Clinical Summary ---
Author Organization [facility] [address] [facility] Address [address] [place] [address] Phone Care Team Providers Care Analytic Manager Name Role Phone Tyrell Amezquita Primary Care Provider [phone] [phone] Allergies Active Allergy Reactions Criticality Noted Date [...] 1 (one) time each day. 5 Active metoprolol tartrate (LOPRESSOR) 25 mg tablet Take 1 tablet (25 mg total) by mouth 2 (two) times a day. 5 Active flecainide (TAMBOCOR) 50 mg tablet Take 1 tablet (50 mg total) by mouth 2 (two) times a day. 5 Active LORazepam (ATIVAN) 0.5 mg tablet Take 1 tablet (0.5 mg total) by mouth every 8 (eight) hours if needed for anxiety (Take 1 tablet as needed for anxiety/gadiel c symptoms). Max Daily Amount: 1.5 mg 84 tablet 5 Active LORazepam (ATIVAN) 0.5 mg tablet Take 1 tablet (0.5 mg total) by mouth every 8 (eight) hours if needed for anxiety (Take 1 tablet as needed for anxiety/gadiel c symptoms). Max Daily Amount: 1.5 mg 30 tablet 5 07/08/20 25 Discontinu ed(Reorder ) Active Problems Problem [...] Overview (11/03/2024): Please schedule any MRI at [facility]. Pure hypercholesterolemia 07/04/2006 Infectious mononucleosis 07/04/2006 Encounters Date Type Department Care Team Description 07/08/2025 12:00 PM EDT Office Visit [address] [place] [address] Tyrell Amezquita PA Routine general medical examination at a health care facility (Primary Dx); Longstanding persistent atrial fibrillation (CMS/HCC V24, CMS/HCC V28); Pure hypercholesterolemia; Mixed hyperlipidemia; Need for tetanus, diphtheria, and acellular pertussis (Tdap) vaccine from Last 3 Months Immunizations Name Administration Dates Next Due Influenza Quadravalent, MDCK , 0.5ml, preservative free (Flucelvax) 6mo and older 09/05/2023,12/11/2022 Influenza trivalent, 0.5mL, preservative free (Fluarix; FluLaval; Fluzone) ages 6mo and older (Afluria) 3 years and older 11/17/2024,08/26/2014,09/24/2012,2010 [place] SARS-CoV-2 COVID-19, mRNA, LNP-S, preservative free 01/28/2021,01/07/2021 Td Tetanus diptheria (Tdvax) 7yo and older 10/12/2004 Tdap Tetanus diptheria acell ular pertussis (Boostrix; Adacel) 7yo and older 07/08/2025,12/11/2014 Surgical History Surgery Date Site/Laterality Comments HERNIA [...] drink = 0.6 oz pur e alcohol) occ Housing Instability Answer Date Recorde d Are you worried that in the next 2 months you may not have stable housing? No 01/12/2025 Food Access & Nutrition Answer Date Rec orded Do you have access to a vari ety of food including fruits and vegetables? Yes 01/12/2025 Access to Healthcare Answer Date Record ed Within the last 3 months, ho wicho many times did you visit the emergency [...] for your loved ones. For example, child development specialist or elderly care for an older adult? 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 [employer] Not on file Not on file Not on file Obstetrics History Last Filed Vital Signs Vital Sign Reading Time Taken Comments Blood Pressure 110/70 07/08/2025 12:28 PM EDT Pulse 68 07/08/2025 11:59 AM EDT Temperature 36.6 C (97.9 F) 07/08/2025 11:59 AM EDT Respiratory Rate 16 07/08/2025 11:59 AM EDT Oxygen Saturation - - Inhaled Oxygen Concentration - - Weight 80.3 kg (177 lb) 07/08/2025 11:59 AM EDT Height 172.7 cm (5' 8 ) 07/08/2025 11:59 AM EDT Body Mass Index 26.91 07/08/2025 11:59 AM EDT Plan of Treatment Upcoming Encounters Date Type Department Care Team (Late st Contact Info) Description 01/11/2026 2:30 PM EST Office Visit Adult Medicine [address] [phone] Tyrell Amezquita PA [address] [place] [phone] Health Maintenance Due Date Last Done Comments Hepatitis A Vaccines (1 of 2 - Risk 2-dose series) 1985 Hepatitis B Vaccines (1 of 3 - 19+ 3-dose series) 1985 Zoster Vaccines (1 of 2) 1985 Pneumococcal Vaccine: 50+ Years (1 of 1 - PCV) 2016 HIV Screening 10/21/2022 COVID-19 Vaccine ( - season) 2025 10/02/2023, 11/08/2021, 01/28/2021, Additional history exists Influenza Vaccine (#1) 2025 , 09/05/2023, 12/11/2022, Additional history exists Social Influencers of Health Screening 01/12/2026 01/12/2025 Colorectal Cancer Screening: Colonoscopy 01/31/2029 02/01/2024 Cholesterol Screening (Lipid Panel) 04/15/2030 04/15/2025, 09/26/2023 DTaP,Tdap,and Td Vaccines (4 - Td or Tdap) 07/08/2035 07/08/2025, 12/11/2014, 10/12/2004 RSV Immunization Adult Patients (1 - 1-dose [...] Procedure Name Priority Date/Time Associated Diagnosis Comments LIPID PANEL WITH REFLEX TO DIRECT LDL Routine 04/15/2025 8:01 AM EDT Mixed hyperlipidemia Longstanding persistent atrial fibrillation (CMS/HCC V24, CMS/HCC V28) Pure hypercholesterolemia HM HEPATITIS C SCREENING Routine 12/12/2022 from Last 3 Months or Most Recently Relevant to Health Maintenance Results * (ABNORMAL) Lipid panel with reflex to direct LDL (04/15/2025 8:01 AM EDT) Cholesterol 199 0 - 200 mg/dL LAB CHEMISTRY METHOD 04/15/2025 11:[address] [facility] Triglycerides 160(H) 0 - 150 mg/dL LAB CHEMISTRY METHOD 04/15/2025 11:[address] [facility] HDL 45 >=40 mg/dL LAB CHEMISTRY METHOD [facility]25 [facility] LDL Calculated 122(H) 0 - 100 mg/dL LAB CHEMISTRY METHOD 04/15/2025 11:02 AM [facility] VLDL Cholesterol Aries 32 mg/dL LAB CHEMISTRY METHOD 04/15/2025 11:02 [facility] Non HDL Chol. (LDL+VLDL) 154(H) <145 mg/dL LAB CHEMISTRY METHOD 04/15/2025 11:02 AM [facility] Chol/HDL Ratio 4.4 0.0 - 4.4 LAB CHEMISTRY METHOD 04/15/2025 11:02 AM [facility] Blood Venous blood specimen / Unknown Venipuncture / Unknown 04/15/2025 8:01 AM EDT 04/15/2025 8:01 AM EDT Tyrell WADDELL LAB BLOOD ORDERABLES Esther l Result [facility] [address] [place] [address], * Hepatitis C Screening (12/12/2022) Pathologist [facility] Hepatitis C Screening abstracted Historical Provider MD HEALTH MAINTENANCE Final Result from Last 3 Months or Most Recently Relevant to Health Maintenance Insurance [facility] Care Teams Analytic Manager Relationship Specialty Start Date End Date Tyrell Amezquita PA [address] [place] [address] PCP - General Internal Medicine 04/27/21
[2025-07-17 11:08] LABS: Hemoglobin A1C 153.7311 umol/L; Total Hemoglobin (HGBA1C) 3736.0189 umol/L
[2025-07-17 11:19] LABS: Anion Gap 12 (12-20); Blood Urea Nitrogen 14 mg/dL (9-16); Calcium 8.9 mg/dL (8.4-10.2); Carbon Dioxide 28 mmol/L (22-29); Chloride 105 mmol/L (96-108); Estimated Glomerular Filt Rate > 60; Potassium 4.0 mmol/L (3.3-5.1); Sodium 141 mmol/L (135-145)
== END 2025-07-17 08:43 | disposition home or self-care (01) ==
LOC: HO.HMGCLDS 08:42
PROVIDERS: PCP Physician Assistant Medical; Visit Provider Physician Assistant Medical
DX: Z00.00 Encounter for general adult medical examination without abnormal findings (principal); Z13.1 Encounter for screening for diabetes mellitus; Z23 Encounter for immunization; I48.11 Longstanding persistent atrial fibrillation; E78.00 Pure hypercholesterolemia, unspecified; E78.2 Mixed hyperlipidemia; R94.39 Abnormal result of other cardiovascular function study
CPT/HCPCS: 36415; 80048; 83036